=== PATIENT | male | born 1940 | race Caucasian/White ===

== ENCOUNTER 2022-03-19 17:27 | Inpatient (IN) | payer OTHER, SELFPAY ==
[2022-03-19] VITALS (16 sets, daily range): BP systolic 125–153; BP diastolic 59–76; PULSE 63–78; RESP 18–27; TEMP 36.2–36.6; O2SAT 86–92; BMI 19.0
--- NOTE | 2022-03-19 17:38 | ED.GENADULT ---
HPI - General Adult General Time Seen by Provider: 17:38 Date Seen: 03/19/22 Chief complaint: Back Injury/Pain Stated complaint: Back Pain/Chest Pain/Short of Breath Time Seen by Provider: 03/19/22 17:37 Source: patient and family History of Present Illness HPI narrative: Sandip is a 81-year-old male from [place] past medical history includes tobacco abuse 1 pack per day, hypertension presents emerged department with friend with upper back, chest pain and shortness of breath. Patient states that he has had progressively worsening upper back pain, shortness of breath over the last month, he denies any trauma or falls, he was seen last week by his primary for preop for some eye surgery. He did not do any imaging, it has been a constant dull ache but today has become more sharp and severe. Denies any nausea vomiting, denies any neck pain, dizziness or lightheadedness, denies any diaphoresis. Pain is constant upper thoracic region, 2/10. Worse with inspiration. Denies any fevers or chills, no covert exposure. Denies any lower back pain or abdominal pain. He has a followup appointment tomorrow for this. No history of any CAD or stroke He has no other concerns at this time. Related Data Home Medications Medication Instructions Recorded Confirmed amlodipine 5 mg tablet mg 03/19/22 Allergies Allergy/AdvReac Type Severity Reaction Status Date / Time No Known Drug Allergies Allergy Verified 03/19/22 18:33 Review of Systems Status of ROS: Reports: 10 or more systems reviewed and unremarkable except as noted in History and below [facility] Social History Smoking Status: Current every day smoker What tobacco products do you use: cigarettes Do you use any of these nicotine containing products: None Second hand tobacco smoke exposure: No How often do you have a drink containing alcohol: 4 or more times a week How many standard drinks containing alcohol do you have on a typical day: 3 or 4 How often do you have six or more drinks on one occasion: Never AUDIT-C Alcohol total score: 5 Non-prescribed substance use: denies use Exam Narrative: Exam Narrative: NAD: mild distress, laying HEENT: Pupils equal round reactive to light, extraocular muscles intact Neck: No JVD, full range of motion, supple Lungs: Diminished breath sounds throughout Heart: Normal sinus rhythm Abdomen: Soft, bowel sounds present, no tenderness Muscle skeletal: does have some tenderness to palpation the upper thoracic region, no midline tenderness. Neuro: Alert awake and oriented x3 Const: Vital Signs, click to edit/add: Vital Signs - 24 hr 03/19/22 17:37 03/19/22 18:15 03/19/22 17:35 Temperature 97.2 F L Pulse Rate Pulse Rate [Right Pulse Oximeter] 68 Respiratory Rate 18 Blood Pressure Blood Pressure [Le ft Upper Arm] 125/59 L 125/59 L Pulse Oximetry 88 92 Oxygen Delivery Me thod Room Air Nasal Cannula Oxygen Flow Rate 2 03/19/22 18:00 03/19/22 18:36 03/19/22 18:38 Temperature Pulse Rate 66 Pulse Rate [Right Pulse Oximeter] 64 Respiratory Rate 27 H Blood Pressure 137/66 Blood Pressure [Le ft Upper Arm] Pulse Oximetry 86 L 89 Oxygen Delivery Me thod Room Air Nasal Cannula Oxygen Flow Rate 2 03/19/22 19:00 03/19/22 19:02 03/19/22 19:03 Temperature Pulse Rate 68 66 66 Pulse Rate [Right Pulse Oximeter] Respiratory Rate Blood Pressure 138/75 Blood Pressure [Le ft Upper Arm] Pulse Oximetry 91 91 91 Oxygen Delivery Me thod Nasal Cannula Nasal Cannula Nasal Cannula Oxygen Flow Rate 2 2 2 03/19/22 19:32 03/19/22 19:34 03/19/22 20:02 Temperature Pulse Rate 67 69 69 Pulse Rate [Right Pulse Oximeter] Respiratory Rate Blood Pressure 150/72 H 153/76 H Blood Pressure [Le ft Upper Arm] Pulse Oximetry 89 89 89 Oxygen Delivery Me thod Nasal Cannula Nasal Cannula Nasal Cannula Oxygen Flow Rate 2 2 2 Course Course Hospital Course: 6:00 PM: AIDET performed. vitals are stable. Less likely cardiac related, based on his smoking history will obtain, EKG, troponin, BMP and CTA angio chest PE study. Will give him 2 mg IV morphine for his pain, suspect muscular in origin. Reevaluation(s) Reevaluation #1: CBC showed no leukocytosis, metabolic panel within normal limits, troponin I negative, EKG showed a normal sinus rhythm, the p.m. [address] changes, no comparisons. Per ED provider. Time: 19:22 Reevaluation #2: CT imaging showed No pulmonary embolism identified, Large left and moderate right pleural effusion with adjacent compressive atelectasis. Severe emphysematous changes with scattered nodules, scarring and atelectasis in the bases. Diffuse thickening of the distal esophagus. Probable small hiatal hernia.Diffuse osseous sclerosis. Findings are nonspecific and the differential is broad including renal osteodystrophy, lymphoma, leukemia, metastases, among other entities. Patient was given 10 mg IV Decadron and a DuoNeb for his breathing and hypoxia, no improvement with keeping O2 sats greater than 90% on room air. Plan would be to admit for further evaluation. 8:00 PM: Spoke with Dr. Quigley, she accepts care of the patient to a [facility] surgery floor bed, patient and friend were in agreement this plan. Time: 19:23 Vital Signs Vital signs: Initial Vital Signs Blood Pressure 125/59 L 03/19/22 17:35 Blood Pressure Mean 81 03/19/22 17:35 Blood Pressure Position Supine 03/19/22 17:35 Vital Signs Blood Pressure 125/59 L 03/19/22 17:35 Temperature 97.2 F L 03/19/22 17:37 Pulse Rate 69 03/19/22 20:02 Respiratory Rate 27 H 03/19/22 18:00 Blood Pressure 153/76 H 03/19/22 20:02 Pulse Oximetry 89 03/19/22 20:02 Oxygen Delivery Method 03/19/22 20:02 Oxygen Flow Rate 2 03/19/22 20:02 Medical Decision Making Lab Data Labs: Lab Results 03/19/22 03/19/22 03/19/22 Range/Units 18:10 18:10 18:38 WBC 6.80 (4.50-11.00) K/uL RBC 4.09 L (4.30-5.90) m/uL Hgb 13.2 L (13.5-17.5) gm/dL Hct 40.2 (37.0-53.0) % MCV 98 (80-100) fL MCH 32 (26-34) pg MCHC 33 (32-36) gm/dL RDW Coeff of Sukhwinder 14.2 (11.5-15.5) % Plt Count 231 (140-440) K/uL Neut % (Auto) 64.6 (42.0-72.0) % Lymph % (Auto) 16.9 L (20-44) % [place] % (Auto) 10.3 (0.0-11.0) % Eos % (Auto) 7.5 H (0.0-7.0) % Baso % (Auto) 0.4 (0.0-3.0) % Neut # (Auto) 4.39 (1.7-7.0) K/uL Lymph # (Auto) 1.10 (0.90-2.90) K/uL [place] # (Auto) 0.70 (0.00-0.90) K/UL Eos # (Auto) 0.50 (0.00-0.50) K/uL Baso # (Auto) 0.03 (0.00-0.30) K/uL Abs Immat Gran (auto) 0.02 (0.00-0.30) K/uL Sodium 140 (135-149) mmol/L Potassium 4.2 (3.6-5.1) mmol/L Chloride 108 (96-114) mmol/L Carbon Dioxide 23 (20-32) mmol/L BUN 21 (7-30) mg/dL Creatinine 1.2 (0.5-1.5) mg/dL Estimated Creat Clear 40.03 Estimated GFR 62 ml/min Glucose 90 (60-115) mg/dL Calcium 8.5 (8.4-10.6) mg/dL Troponin I < 0.01 L (0.01-0.04) ng/mL POC Troponin I 0.00 L (0.01-0.04) ng/ml Discharge Plan Discharge Clinical Impression: Bilateral pleural effusion, Back pain, thoracic, Osteosclerosis Patient Disposition: Admitted As Inpatient Activity Level: Activity as Tolerated
--- NOTE | 2022-03-19 17:47 | CRLHL7_ITS ---
For Patients: As a result of the Century Cures Act, medical imaging exams and procedure reports are released immediately into your electronic medical record. You may view this report before your referring provider. If you have questions, please contact your health care provider. INDICATION: Shortness of breath, upper back pain.. TECHNIQUE: CT chest PE was acquired with 95 cc Isovue 370 IV contrast. COMPARISON: None. FINDINGS: Heart and vasculature: Contrast opacification of the pulmonary arterial tree is adequate. No sign of pulmonary embolism. Heart size is normal. Thoracic aorta and pulmonary artery are normal in caliber.Moderate calcific atherosclerosis of the visualized aorta and its large branches. Coronary artery calcifications are noted. Lungs and pleura: Severe emphysematous changes are noted bilaterally. There are scattered small nodular opacities, predominantly in the periphery of the bilateral upper lobes. Subpleural ground-glass opacities are also identified, likely scarring. Bibasilar atelectasis. Large left and moderate right pleural effusions with adjacent compressive atelectasis. Lymph nodes/mediastinum: No mediastinal, hilar, or axillary adenopathy. The distal diffuse, circumferential esophageal thickening and likely small side hiatal hernia noted. Chest wall: No masses. Upper abdomen: No acute or significant findings. Likely prior cholecystectomy. The partially visualized probable left-sided moderate hydronephrosis. Bones: Diffuse dense sclerosis of the visualized osseous structures. IMPRESSION: No pulmonary embolism identified. Large left and moderate right pleural effusion with adjacent compressive atelectasis. Severe emphysematous changes with scattered nodules, scarring and atelectasis in the bases. Diffuse thickening of the distal esophagus. Probable small hiatal hernia. Partially visualized left-sided hydronephrosis. Diffuse osseous sclerosis. Findings are nonspecific and the differential is broad including renal osteodystrophy, lymphoma, leukemia, metastases, among other entities. Please note that all CT scans at this facility use dose modulation, iterative reconstruction, and/or weight-based dosing when appropriate to reduce radiation dose to as low as reasonably achievable. Dictated by Sunshine Rao MD @ 03/19/2022 6:57:31 PM (Electronically Signed)
--- NOTE | 2022-03-19 18:15 | ED.NURSE ---
Pt O2 sats at 87% and pt reporting SOB. Placed pt on 2L O2 NC, O2 up to 91-92%. notified.
[2022-03-19 18:24] LABS: Basophils Absolute Auto 0.03 K/uL (0.00-0.30); Basophils Percent Auto 0.4 % (0.0-3.0); Eosinophils Percent Auto 7.5 % (0.0-7.0); Hematocrit 40.2 % (37.0-53.0); Hemoglobin* 13.2 gm/dL (13.5-17.5); Immature Granulocytes Abs Auto 0.02 K/uL (0.00-0.30); Lymphocytes Percent Auto 16.9 % (20-44); Mean Corpuscular HGB Conc 33 gm/dL (32-36); Mean Corpuscular Hemoglobin 32 pg (26-34); Mean Corpuscular Volume 98 fL (80-100); Monocytes Percent Auto 10.3 % (0.0-11.0); Neutrophils Absolute Auto 4.39 K/uL (1.7-7.0); Neutrophils Percent Auto 64.6 % (42.0-72.0); Platelet Count* 231 K/uL (140-440); RDW Coefficient of Variation % 14.2 % (11.5-15.5); Red Blood Count 4.09 m/uL (4.30-5.90)
[2022-03-19 18:25] LABS: Slide Review Reflex No
[2022-03-19 18:41] LABS: Chloride* 108 mmol/L (96-114); Potassium* 4.2 mmol/L (3.6-5.1); Sodium* 140 mmol/L (135-149)
[2022-03-19 18:44] LABS: Blood Urea Nitrogen* 21 mg/dL (7-30); Carbon Dioxide* 23 mmol/L (20-32); Creatinine* 1.2 mg/dL (0.5-1.5); Est. Creatinine Clearance* 40.03; Estimated Glomerular Filt Rate 62 ml/min
[2022-03-19 18:45] LABS: Calcium* 8.5 mg/dL (8.4-10.6); Glucose* 90 mg/dL (60-115)
--- NOTE | 2022-03-19 18:57 | ED.NURSE ---
Pt states pain is not bothering him at all right now. Pt declines ordered morphine at this time.
[2022-03-19 19:12] LABS: Troponin I* < 0.01 ng/mL (0.01-0.04)
--- NOTE | 2022-03-19 19:40 | ED.NURSE ---
Trialed pt off O2 onto RA with MD at bedside. Pt O2 sat dropped to 82% with good waveform. Pt denied SOB. O2 NC at 2L reapplied with no increase in sat. Upped O2 to 4L NC, brought pt up to 92%.
[2022-03-19] MEDS: dexAMETHasone 10 MG/ML inj IVP (19:48)
[2022-03-19] MEDS: IPRAT-ALBUT 0.5-2.5 MG/3 ML NEB 1 NEB IH (19:48)
--- NOTE | 2022-03-19 19:58 | ED.NURSE ---
After neb, O2 up to 96%.
--- NOTE | 2022-03-19 20:06 | ED.NURSE ---
Pt O2 back down to 88-90% on 2L NC. notified.
--- NOTE | 2022-03-19 20:09 | W.PC.EDHO ---
Primary Language: Persian Preferred Language: Orientation Status: [x] Alert & Oriented [] Slight Confusion [] Known Dx Dementia Transfers By: [] Assist of 1 [x] Assist of 2 [] Lift Active Medications Generic Name Dose Route Start Last Admin Trade Name Kimberly PRN Reason Stop Dose Admin Albuterol/Ipratropium 1 neb 03/19/22 19:38 03/19/22 19:48 Iprat-Albut 0.5-2.5 Mg/3 Ml Neb IH 03/19/22 19:39 1 neb ONCE ONE Administration Dexamethasone 10 mg 03/19/22 19:38 03/19/22 19:48 Dexamethasone 10 Mg/Ml Inj IVP 03/19/22 19:39 10 mg ONCE ONE Administration Description of Symptoms ED Triage Present Problem upper back pain and sob. Description IV Insertion/Site Date of IV Line Insertion [ 03/19/22 Left Antecubital] Oxygen Administration Pulse Oximetry 89 Pulse Oximetry 89 Pulse Oximetry 89 Pulse Oximetry 91 Pulse Oximetry 91 Pulse Oximetry 91 Pulse Oximetry 89 Pulse Oximetry 92 Pulse Oximetry 86 Pulse Oximetry 88 Oxygen Delivery Method Nasal Cannula Oxygen Delivery Method Nasal Cannula Oxygen Delivery Method Nasal Cannula Oxygen Delivery Method Nasal Cannula Oxygen Delivery Method Nasal Cannula Oxygen Delivery Method Nasal Cannula Oxygen Delivery Method Nasal Cannula Oxygen Delivery Method Nasal Cannula Oxygen Delivery Method Room Air Oxygen Delivery Method Room Air Oxygen Flow Rate 2 Oxygen Flow Rate 2 Oxygen Flow Rate 2 Oxygen Flow Rate 2 Oxygen Flow Rate 2 Oxygen Flow Rate 2 Oxygen Flow Rate 2 Oxygen Flow Rate 2 Cardiac Monitoring EKG Method 12 Lead
[2022-03-19 20:15] LABS: Albumin* 3.2 g/dL (3.3-5.0)
[2022-03-19 20:19] LABS: Alanine Aminotransferase* 13 U/L (4-50); Alkaline Phosphatase* 868 U/L (40-150); Aspartate Amino Transferase* 48 U/L (12-35); Bilirubin Direct* 0.4 mg/dL (0.0-0.5); Bilirubin Total* 0.4 mg/dL (0.1-1.5); Total Protein* 6.3 g/dL (6.0-8.3)
[2022-03-19 20:26] LABS: HCO3 VBG 25 mmol/L (21-28); PCO2 VBG 40 mmHG (40-50); PO2 VBG 30.5 mmHG (25-47); pH VBG 7.394 (7.32-7.43)
--- NOTE | 2022-03-19 20:39 | P.IMHP_ITS ---
Hospitalist- H&P: HPI History of Present Illness Date Seen: 03/19/22 Chief complaint: Back Pain/Chest Pain/Short of Breath Narrative: ADMISSION HISTORY AND PHYSICAL - HOSPITALIST Chief Complaint: My upper back is killing me HPI: 81-year-old PAST MEDICAL HISTORY: Hypertension Tobacco use disorder History of elevated PSA PAD - moderate noted by KIRTI in the right foot, mild in the left foot Has been COVID vaccinated x3 MEDICATIONS: Norvasc 5 mg daily ALLERGIES: No known drug allergies SURGICAL HISTORY: Open cholecystectomy Repair of incarcerated left inguinal hernia FAMILY HISTORY: Reviewed in EMR HABITS: Daily smoker Daily drinker SOCIAL HISTORY: INVESTIGATIONS: LABS/MICRO/ECG/IMAGING 153/76 Pulse 69 Respiratory rate 27 Temp 97.2? 89% on 2 L per nasal cannula CBC reflects a normal white blood cell count of 6.8, hemoglobin 13.2, platelet count 231 Chem panel reveals normal basic electrolytes, creatinine is 1.2. Bilirubin is normal. AST is 48, ALT is 13 and alk-phos is 868. Troponin undetectable Albumin running low at 3.2 C reactive protein 1.0 Recent PSA was 4.9 done at a recent preop Alk-phos was 934, 9 days ago CTA No pulmonary embolism identified. Large left and moderate right pleural effusion with adjacent compressive atelectasis. Severe emphysematous changes with scattered nodules, scarring and atelectasis in the bases. Diffuse thickening of the distal esophagus. Probable small hiatal hernia. Partially visualized left-sided hydronephrosis. Diffuse osseous sclerosis. Findings are nonspecific and the differential is broad including renal osteodystrophy, lymphoma, leukemia, metastases, among other entities. REVIEW OF SYSTEMS: 12-point ROS completed with patient and negative unless otherwise stated in HPI or below. PHYSICAL EXAM: CODE STATUS: FULL CODE CONSTITUTIONAL: VITAL SIGNS: see record. HEENT: Normocephalic, atraumatic. PERRL, EOMI, conjunctivae pink, no scleral icterus. Ears and nose externally normal. Pharynx normal. NECK: No JVD. No carotid bruit, no thyromegaly, no adenopathy. CHEST: Clear to auscultation bilaterally HEART: S1 and S2 normal. No harsh murmurs. Edema MUSCULOSKELETAL: No gross joint deformity or swelling. NEURO: Cranial nerves intact. Grossly intact. No asymmetric findings. SKIN: No rashes, petechiae, concerning changes PSYCHIATRIC: Euthymic. ADMIT DVT: GI: Time spent: 70 minutes examining patient, conferring with family and patient, care staff, developing care plan [facility] Medical History (Updated 03/19/22 @ 21:19 by Keiko Quigley MD) HTN (hypertension) Tobacco abuse Social History Highest level of school completed/degree received: 7th grade Smoking Status: Current every day smoker What tobacco products do you use: cigarettes Do you use any of these nicotine containing products: None Second hand tobacco smoke exposure: No How often do you have a drink containing alcohol: 4 or more times a week Alcohol type: hard liquor Alcohol type details: patricia How many standard drinks containing alcohol do you have on a typical day: 3 or 4 How often do you have six or more drinks on one occasion: Never AUDIT-C Alcohol total score: 5 Non-prescribed substance use: denies use Caffeine: No Meds Home Medications and Allergies Home Medications Medication Instructions Recorded Confirmed Type amlodipine 5 mg tablet mg 03/19/22 History Allergies Allergy/AdvReac Type Severity Reaction Status Date / Time No Known Drug Allergies Allergy Verified 03/19/22 18:33 Exam Const: Vital Signs, click to edit/add: Vital Signs - 24 hr 03/19/22 17:37 03/19/22 18:15 03/19/22 17:35 Temperature 97.2 F L Pulse Rate Pulse Rate [Right Pulse Oximeter] 68 Respiratory Rate 18 Blood Pressure Blood Pressure [Le ft Upper Arm] 125/59 L 125/59 L Pulse Oximetry 88 92 Oxygen Delivery Me thod Room Air Nasal Cannula Oxygen Flow Rate 2 03/19/22 18:00 03/19/22 18:36 03/19/22 18:38 Temperature Pulse Rate 66 Pulse Rate [Right Pulse Oximeter] 64 Respiratory Rate 27 H Blood Pressure 137/66 Blood Pressure [Le ft Upper Arm] Pulse Oximetry 86 L 89 Oxygen Delivery Me thod Room Air Nasal Cannula Oxygen Flow Rate 2 03/19/22 19:00 03/19/22 19:02 03/19/22 19:03 Temperature Pulse Rate 68 66 66 Pulse Rate [Right Pulse Oximeter] Respiratory Rate Blood Pressure 138/75 Blood Pressure [Le ft Upper Arm] Pulse Oximetry 91 91 91 Oxygen Delivery Me thod Nasal Cannula Nasal Cannula Nasal Cannula Oxygen Flow Rate 2 2 2 03/19/22 19:32 03/19/22 19:34 03/19/22 20:02 Temperature Pulse Rate 67 69 69 Pulse Rate [Right Pulse Oximeter] Respiratory Rate Blood Pressure 150/72 H 153/76 H Blood Pressure [Le ft Upper Arm] Pulse Oximetry 89 89 89 Oxygen Delivery Me thod Nasal Cannula Nasal Cannula Nasal Cannula Oxygen Flow Rate 2 2 2 03/19/22 20:28 Temperature Pulse Rate 77 Pulse Rate [Right Pulse Oximeter] Respiratory Rate Blood Pressure Blood Pressure [Le ft Upper Arm] Pulse Oximetry 90 Oxygen Delivery Me thod Nasal Cannula Oxygen Flow Rate 2 Hospitalist - H&P: Result Labs Labs: Short CBC 03/19/22 Range/Units 18:10 WBC 6.80 (4.50-11.00) K/uL Hgb 13.2 L (13.5-17.5) gm/dL Hct 40.2 (37.0-53.0) % Plt Count 231 (140-440) K/uL BMP 03/19/22 18:10 Sodium 140 Potassium 4.2 Chloride 108 Carbon Dioxide 23 BUN 21 Creatinine 1.2 Glucose 90 Calcium 8.5 Cardiac Enzymes 03/19/22 Range/Units 18:10 Troponin I < 0.01 L (0.01-0.04) ng/mL Liver Function 03/19/22 Range/Units 18:10 Total Bilirubin 0.4 (0.1-1.5) mg/dL Direct Bilirubin 0.4 (0.0-0.5) mg/dL AST 48 H (12-35) U/L ALT 13 (4-50) U/L Alkaline Phosphatase 868 H (40-150) U/L Albumin 3.2 L (3.3-5.0) g/dL Assessment and Plan Assessment and plan (1) Acute respiratory failure with hypoxia: Status: Acute Assessment and Plan: will treat presumptively with abx and one dose of steroids. awaiting pro charlette, blood cultures (2) Bilateral pleural effusion: Status: Acute Assessment and Plan: Hypoxic. I suspect these are likely malignant effusions. Potentially they are transudative; we can get echo. BNP is being added on. smoker. osteosclerosis with elevated alk phos (mets?), hydronephrosis on chest CT - awaiting Abd/Pelvis CT Gen Surg to consult tomorrow for therapeutic/diagnostic thoracentesis. (3) Back pain, thoracic: Status: Acute Assessment and Plan: lidocaine patch, toradol, oxy, gabapentin. following. (4) Osteosclerosis: Status: Acute (5) HTN (hypertension): Status: Acute Assessment and Plan: home norvasc ordered. (6) Tobacco abuse: Status: Acute Assessment and Plan: will offer
[2022-03-19 20:56] LABS: SARS PCR* Negative SARS-CoV-2 (Negative)
--- NOTE | 2022-03-19 20:58 | CRLHL7_ITS ---
For Patients: As a result of the Century Cures Act, medical imaging exams and procedure reports are released immediately into your electronic medical record. You may view this report before your referring provider. If you have questions, please contact your health care provider. Indication: Malignancy hydronephrosis Technique: Contrast CT abdomen pelvis Comparison: CT chest 03/19/2022 Findings: Moderate bilateral effusions. Bibasilar atelectasis. Severe emphysema. Scattered pulmonary nodules. [id number] hiatal stomach decompressed. Cholecystectomy tiny hypodensity adjacent to the falciform ligament Thursday. Spleen unremarkable atherosclerotic calcification of the aorta nonaneurysmal. Adrenal glands pancreas unremarkable. Lack of intra-abdominal fat limits evaluation. There is mild right hydronephrosis. Moderate to severe left hydronephrosis 9 millimeter right bladder base stone the distal ureters are poorly visualized. Urinary bladder significantly distended diffuse trabeculation. Heterogeneous enlarged prostate gland. No large adenopathy is seen. Bowel appears unremarkable no obstruction diverticulosis. 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 Impression: 1. Moderate to severe left hydronephrosis. Mild right hydronephrosis. Distal ureters are poorly seen without definite obstructing stone seen. Right bladder base stone. Calculus within right bladder diverticulum. Diffuse trabeculated urinary bladder likely related to bladder outlet obstruction. Heterogeneous enlarged prostate gland. 2. 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 3. Anasarca. Lack of intra-abdominal fat limits evaluation. Please note that all CT scans at this facility use dose modulation, iterative reconstruction, and/or weight-based dosing when appropriate to reduce radiation dose to as low as reasonably achievable. Dictated by Celia Shafer MD @ 03/19/2022 10:22:57 PM (Electronically Signed)
[2022-03-19 22:39] LABS: NT Pro B Type NatriureticPept* 368 PG/mL (0-450)
[2022-03-19 22:48] LABS: Gamma Glutamyl Transpeptidase* 20 U/L (8-55)
[2022-03-19] MEDS: GABAPENTIN 300 MG CAPSULE PO (22:58)
[2022-03-19] MEDS: ENOXAPARIN 40 MG/0.4 ML INJ SUBCUT (22:58)
[2022-03-19] MEDS: PIPERACILLIN/TAZOBACTAM 3.375 GM in 0.9 % SODIUM CHLORIDE Mini-bag 100 ML IVPB (22:59)
[2022-03-19] MEDS: LIDOCAINE 5% PATCH 1 PATCH TRANSDERMA (23:00)
[2022-03-20] MEDS: LACTATED RINGERS 1000 ML 500 ML IV (00:48)
--- NOTE | 2022-03-20 01:53 | PC.NURSE ---
0130 Report given to Rosita CARDOZO at [facility].
--- NOTE | 2022-03-20 01:57 | PC.NURSE ---
9--[address] Diaz able to place 16F coude tip cath. 550cc of tea colored urine intially. Irrigated with 50 x2. 500cc LR bolus given.
--- NOTE | 2022-03-20 02:01 | PC.NURSE ---
0130 Attempted call daughter to inform of pt's transfer to [facility]. Msg left to call unit. Son Ancelmo called and informed. Daughter did call back and was informed.
--- NOTE | 2022-03-20 02:05 | PC.NURSE ---
Report given to EMS crew. Pt left for transfer at 0150
--- NOTE | 2022-03-27 15:05 | PM.DS1 ---
DS: Providers Provider Time Seen by Provider: 00:01 Date Seen: 03/20/22 Date of admission: 03/19/22 20:05 Primary care physician: Lexus Shah MD Admitting Clinician: Keiko Quigley MD Consults: 03/19/22 21:31 Consult to Occupational Therapy [CONS] Routine Comment: Reason(s) for OT Consult:: Evaluate and Treat Any Restrictions?:: No Restrictions Consult to Physical Therapy [CONS] Routine Comment: Reason(s) for PT Consult:: Evaluate and Treat Any Restrictions?:: No Restrictions Consult to Respiratory Therapy [CONS] Routine Comment: Reason(s) for RT Consult:: Consult Attending Physician on discharge: Keiko Quigley MD Date of Discharge: 03/20/22 (Transferred to [facility] at 0200 on 03/20) DS: Diagnosis Discharge Diagnosis (1) 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 pleural fluid c/w with GI origin adenoca. iliac crest bone biopsy was pending at discharge. d/c with oxygen and conteh catheter. (2) Acute respiratory failure with hypoxia: Status: Acute (3) Tobacco abuse: Status: Acute (4) Bilateral pleural effusion: Status: Acute (5) Back pain, thoracic: Status: Acute DS: Summary Hospital Course Hospital Course: HOSPITALIST DISCHARGE SUMMARY ATTENDING PHYSICIAN: Keiko Quigley MD FINAL DIAGNOSIS: Bilateral pleural effusions, concerning for metastatic disease Skeletal metastasis, origin Urinary obstruction Weight loss HOSPITAL FOLLOWUP ISSUES: Per [facility], excepting transfer BRIEF HOSPITAL COURSE: This is a 81-year-old who was admitted on the evening of 03/19. Very shortly after admission to the floor it became obvious that this patient needed a multi disciplinary approach and team for his care. He is a long-time smoker and came in with back pain, weight loss and weakness. His workup indicated he likely had widespread carcinoma. His bilateral pleural effusions likely needed diagnostic and therapeutic thoracentesis. He had partial urinary obstruction and a catheter was difficult to place. I consulted with Urology who was concerned that this may be a primary prostate cancer. Further discussion with the patient and family we felt transfer for Oncology, Urology was in his best interest. VITAL SIGN, MEDICATION, LAB/MICRO, IMAGING SUMMARY (full details available in account tabs or by records request) REVIEW OF SYSTEMS Unchanged from admission PHYSICAL EXAM: CONSTITUTIONAL: Older than stated age, cachectic. VITAL SIGNS: see record. HEENT: Normocephalic, atraumatic. PERRL, EOMI, conjunctivae pink, no scleral icterus. Ears and nose externally normal. Pharynx normal. NECK: No JVD. No carotid bruit, no thyromegaly, no adenopathy. CHEST: Clear to auscultation bilaterally. HEART: S1 and S2 normal. Edema ABDOMEN: Scaphoid abdomen MUSCULOSKELETAL: No gross joint deformity or swelling. NEURO: Cranial nerves intact. Grossly intact. No asymmetric findings. SKIN: No rashes, petechiae, concerning changes PSYCHIATRIC: Mood euthymic. DISPOSITION: Transferred to [facility] Time spent on discharge 37 minutes. Status at Discharge Functional status at discharge: bed bound Overall status at discharge: patient is not back to baseline Time Spent with Patient Time attestation: Total time spent providing and/or coordinating discharge services: Time spent: Greater than 30 minutes Discharge Plan Discharge Disposition: Xfer Other Date of Admission: 03/19/22 20:05 Attending Provider on Discharge: Keiko Quigley Primary Care Provider: Lexus Shah Discharge Medications: Continued amlodipine 5 mg tablet Label Comments: TAKE 1 TABLET BY MOUTH ONCE DAILY Discharge Orders: Discharge Order (Routine); Ordered 03/20/22 Ordered By: Keiko Quigley Activity Restrictions/Additional Instructions: To follow up with scheduled tomorrow with primary care provider. To continue with Tylenol 1000 mg every 6 hours as needed for pain. Activity Level: Activity as Tolerated Follow Up Appointments: Lexus Shah MD [Primary Care Provider] - Forms: [facility] Info Instructions Hospital Course: HOSPITALIST DISCHARGE SUMMARY ATTENDING PHYSICIAN: Keiko Quigley MD FINAL DIAGNOSIS: Bilateral pleural effusions, concerning for metastatic disease Skeletal metastasis, origin Urinary obstruction Weight loss HOSPITAL FOLLOWUP ISSUES: Per [facility], excepting transfer BRIEF HOSPITAL COURSE: This is a 81-year-old who was admitted on the evening of 03/19. Very shortly after admission to the floor it became obvious that this patient needed a multi disciplinary approach and team for his care. He is a long-time smoker and came in with back pain, weight loss and weakness. His workup indicated he likely had widespread carcinoma. His bilateral pleural effusions likely needed diagnostic and therapeutic thoracentesis. He had partial urinary obstruction and a catheter was difficult to place. I consulted with Urology who was concerned that this may be a primary prostate cancer. Further discussion with the patient and family we felt transfer for Oncology, Urology was in his best interest. VITAL SIGN, MEDICATION, LAB/MICRO, IMAGING SUMMARY (full details available in account tabs or by records request) REVIEW OF SYSTEMS Unchanged from admission PHYSICAL EXAM: CONSTITUTIONAL: Older than stated age, cachectic. VITAL SIGNS: see record. HEENT: Normocephalic, atraumatic. PERRL, EOMI, conjunctivae pink, no scleral icterus. Ears and nose externally normal. Pharynx normal. NECK: No JVD. No carotid bruit, no thyromegaly, no adenopathy. CHEST: Clear to auscultation bilaterally. HEART: S1 and S2 normal. Edema ABDOMEN: Scaphoid abdomen MUSCULOSKELETAL: No gross joint deformity or swelling. NEURO: Cranial nerves intact. Grossly intact. No asymmetric findings. SKIN: No rashes, petechiae, concerning changes PSYCHIATRIC: Mood euthymic. DISPOSITION: Transferred to [facility] Time spent on discharge 37 minutes.
== END 2022-03-20 02:00 | disposition short-term general hospital (02) | DRG 374 ==
LOC: ED 19:30 → MEDSURG 20:08
PROVIDERS: Admitting Provider Family Medicine; Emergency Provider Student in an Organized Health Care Education/Training Program; PCP Family Medicine; Visit Provider Family Medicine
DX: C26.9 Malignant neoplasm of ill-defined sites within the digestive system (principal); J96.01 Acute respiratory failure with hypoxia; Q78.2 Osteopetrosis; N13.1 Hydronephrosis with ureteral stricture, not elsewhere classified; J91.0 Malignant pleural effusion; C79.51 Secondary malignant neoplasm of bone; C80.1 Malignant (primary) neoplasm, unspecified; I10 Essential (primary) hypertension; F17.210 Nicotine dependence, cigarettes, uncomplicated; M54.6 Pain in thoracic spine; I73.9 Peripheral vascular disease, unspecified
CPT/HCPCS: 36415; 71260; 74177; 80048; 80053; 80076; 81001; 82330; 82728; 82803; 82977; 83540; 83550; 83605; 83735; 83880; 84145; 84443; 84484; 85025; 85027; 86140; 87040; 87086; 87635; 93005; 94640; 94761; 99283; A9270; J1100; J1650; J2543; J7120; Q9967

== ENCOUNTER 2022-03-20 01:43 | Outpatient (CLI) | payer OTHER, SELFPAY ==
--- NOTE | 2022-04-07 14:41 | ONC.NURNOTE ---
Patient was referred to our office at discharge the beginning of the month. Patient was referred by discharging provider, with no child care counselor. Patient has adenocarcimona of unknown primary, and bone biopsy per [facility] was inconclusive. Nursing talked with Dr. Chávez with [facility] on 04/02/2022 and he notes that patient was discussed at tumor board and a Upper GI was recommended. Rehabilitation Consultant asked that they please order this prior to Dr. aragon seeing patient on 04/22/2022 so that this is available to provider. Dr. Aragon noted that patient will need a MRI of the head prior to seeing him as well. Nursing called patient to let them know this and daughter notes that patient would not be able to have this without sedation or in an open sided MRI. [facility] does not have an open sided machine and we do not have records on patient, so copy writer reached out to primary care: Kathy Winters and she notes that she has only seen patient twice in the last two years. She notes that Dr. Kirkpatrick saw patient for post hospitalization and that he may be willing to order prior to us seeing him. He is out of the office today, so nursing left message with patient's daughter, Gissel to see what patient needs for sedation or if would be able to have the open sided MRI. Left message for Dr. Kirkpatrick to please order this.
== END 2022-03-20 01:44 | disposition home or self-care (01) ==
PROVIDERS: PCP Family Medicine; Visit Provider Student in an Organized Health Care Education/Training Program
DX: R09.02 Hypoxemia (principal); J90 Pleural effusion, not elsewhere classified; M54.9 Dorsalgia, unspecified
CPT/HCPCS: A0425; A0428

== ENCOUNTER 2022-04-28 09:19 | Emergency (ER) | payer OTHER, SELFPAY ==
[2022-04-28 09:25] VITALS: BP 159/90; PULSE 65; RESP 22; TEMP 36.3; BMI 19.4
--- NOTE | 2022-04-28 09:49 | CRLHL7_ITS ---
For Patients: As a result of the Cures Act, medical imaging exams and procedure reports are released immediately into your electronic medical record. You may view this report before your referring provider. If you have questions, please contact your health care provider. INDICATION: Shortness of breath TECHNIQUE: Chest 2 views COMPARISON: CT 03/19/2022 FINDINGS: Widespread metastatic disease to the osseous structures again noted. Bilateral pleural effusions, left greater than right with adjacent compressive atelectasis. Underlying COPD/emphysema. Likely similar peripheral densities bilaterally. No pneumothorax. No compression fracture. IMPRESSION: Persistent bilateral effusions and adjacent atelectasis superimposed upon COPD/emphysema and widespread metastatic disease. Dictated by Jesús Holley MD @ 04/28/2022 10:37:39 AM (Electronically Signed)
--- OUTSIDE RECORDS SUMMARY | 2022-04-28 09:58 | XMS_ITS | Encounter Summary ---
:1940 Author Care Team Providers Name Role Phone Niesha THURSTON Primary Care Provider [phone] Reason for Visit Hospital Follow up Assessment and Plan 1. Retention of urine 2. Lower urinary tract symptoms due to benign prostatic hypertrophy ? tamsulosin 0.4 mg capsule Discussion Note Assessment: - Acute urinary retention - BPH with nocturia, alpha kendall naive - Metastatic adenocarcinoma, etiology un clear still Plan: - Discussed the etiology and pathophysio logy of acute urinary retention - Patient currently with Spangler catheter, discussed options including fill/pull trial void here in the office today, scheduling formal trial void in the near future, discontinuing Spangler catheter with obs ervation. Discussed the risks including recurrent urinary retention requiring visit to the emergency department and repeat catheter placement. - After discussion patient to start tams ulosin today and undergo fill/pull trial. - Patient failed fill/pull. Catheter rep laced - Will schedule for RN trial void in 1 w ak[place]ok - Discussed the differential diagnosis, pathophysiology and nature of benign prostate enlargement causing lower urinary tract symptoms - Counseled patient on conservative vonda gement options including appropriate fluid management, avoidance of diuretics including caffeine and alcohol - Prescription sent for Tamsulosin [place] chloride (Flomax?) 0.4 mg P.O. daily: -I have discussed in great detail with t he patient the treatment of prostate enlargement/lower urinary tract symptoms using tamsulosin. I have explained my rationale for using tamsulosin as well as pote ntial risks of asthenia (2%), dizziness (5%), rhinitis (3%) and abnormal ejaculation (11%). I encouraged patient to report any prior or current history of alpha-1 antagonist use to their ophthalmic surg chapin before undergoing any eye surgery du e to the risk of intraoperative floppy iris syndrome. The patient expressed an understanding of the treatment, possible reactions, and possible prognosis. - Extensively reviewed patient's hospita l records. Still unclear about the etiology of patient's cancer. He has a hospital follow up with PCP coming up soon to review. - Follow up in 1 month for symptom reass essment Patient educational handouts: No information available. Plan of Care Reminders Provider Appointments Established 10 05/13/2022 3:10PM Antoni Meade, DO Lab None recorded. ? ? Referral None recorded. ? ? Procedures None recorded. ? ? Surgeries None recorded. ? ? Imaging None recorded. ? ? Medications Name Start Date ? ? amlodipine 5 mg tablet ? TAKE 1 TABLET BY MOUTH ONCE DAILY brimonidine 0.2 % eye drops ? INSTILL 1 DROP IN SURGICAL EYE TWICE A DAY FOR 7 DAYS finasteride 5 mg tablet ? TAKE 1 TABLET (5 MG) BY MOUTH EVERY MORNING. buysupsc-swubodrlm-bppggroc 3.5 mg/mL-10,000 unit/mL-0 .1% eye drops ? INSTILL ONE DROP IN BOTH EYES THREE TIMES A DAY FOR 1 MONTH polymyxin B sulfate 10,000 unit-trimethoprim 1 mg/mL e ye drops ? INSTILL 1 DROP INTO RIGHT EYE FOUR TIME S A DAY DIRECTED START AFTER SURGERY. USE FOR 7 DAYS, THEN STOP. prednisolone acetate 1 % eye drops,suspension ? INSTILL 1 DROP IN LEFT EYES 4 TIMES KAYLI LY FOR 1 WEEK, 3 TIMES DAILY FOR 1 WEEK, TWICE DAILY FOR 1 WEEK. AND ONCE DAILY A FINAL WEEK tamsulosin 0.4 mg capsule ? TAKE ONE CAPSULE BY MOUTH EVERY DAY Medications Administered None recorded. Vitals Height Weight BMI 5 ft 7 in 125 lbs 19.6 kg/m2 Results Lab Results None recorded. Allergies Code Code System Name Reaction Severity Onset NKDA ? ? ? Problems Name Status Onset Date Source ? Retention of Urine Active 04/01/2022 ? Lower Urinary Tract Symptoms Due to Benign Prostatic Active 04/01/2022 ? Hypertrophy Procedures None recorded. Vaccine List Vaccine Type COVID-19, mRNA, LNP-S, PF, 3 mcg/0.2 mL dose, tank-sucrose ([employer]) 09/12/2021 Social History Tobacco Smoking Status Former Smoker What is your level of alcohol consumption? Moderate Has tobacco cessation counseling been provided? N Are you currently employed? N Could you be ? N Preferred Language [place]er What was the date of your most recent tobacco screening? Ethnicity Not / Do you or have you ever used any other forms of tobacco or N nicotine? What is your level of caffeine consumption? Moderate Do you use any illicit or recreational drugs? N Recreational Drug Use N What is your relationship status? Family History Relation Problem Onset Age of Age Notes Father No current problems or (No Information) N/A ( No Notes) disability Mother No current problems or (No Information) N/A ( No Notes) disability Son Family history of renal stone (No Information) N/A (No Notes) Functional Status Unknown. Past Encounters 04/01/2022 Retention of Urine; Lower Urinary Tract Symptoms Due to Benign Prostatic Hypertrophy Antoni Meade, DO: [address], [address], [place] [address], Ph. [phone] History of Present Illness Note: <div>Patient presents in initial consultation for urinary retention</di v><div>
</div><div>Patient was seen as inpatient 03/20/[address] Carmona& #39;Richard. Patient presented to [facility] with back pain, chest pain, shortness of breath. CT scan that time revealed bilateral hydronephrosis down to the level of the bladder which wasdistended and had an enlarged prostate. Additionally there were numerous sclerotic lesions of the bone. Spangler catheter was placed. At that time patient denied any baseline difficulty with urination. Did have a history of elevated PSA and had a biopsy in 2008 which was negative. PSA at that time approximately 7. PSA completed 03/10/2022 4.94, 4.08 03/20/2022. Patient additionally with a pleural effusion for cytology was concerning for metastatic adenocarcinoma. Unknown primary etiology. Patient additionally with a nuclear medicine bone scan 03/21/2022 showing diffuse lesions.</div><div>
</div><div>04/01/22: Reports still having the catheter. Has some discomfort with the catheter. Not on flomax. No history of retention. Patient has yet to hear the results of the tests to determine what type of cancer he might have. Does have an upcoming appointment for that. Reports at [facility] having occasional weak stream and nocturia. </div> Review of Systems ? Comprehensive General Adult ROS Reported By: Patient Constitutional: Constitutional: no fever, no chills Eyes: Eyes: no vision change Cardiovascular: Cardiovascular: no chest flo n, no palpitations Respiratory: Respiratory: no wheezing, no cough Gastrointestinal: Gastrointestinal: no nausea, no constipation Musculoskeletal: Musculoskeletal: no neck flo n, no back pain Neurologic: Neurologic: no tremor, no di zziness Genitourinary: Genitourinary: no incontinen ce, difficulty urinating Psychiatric: Psych: no hallucinations, (n ormal) sleep disturbances: mismatch of sleep / wake schedule with l ifestyle needs Notes: <p> </p> Physical Exam ? General Adult Exam Male Reported By: Patient Constitutional: General Appearance: healthy- appearing, well-nourished. Level of Distress: NAD. Ambulation: a mbulating normally Psychiatric: Mental Status: active and al ert, normal affect Head: Head: normocephalic, atrauma tic Eyes: Lids and Conjunctivae: non-i njected Lungs: Respiratory effort: no dyspn ea Cardiovascular: Pulses including femoral / p edal: normal throughout Abdomen: Inspection and Palpation: so ft, non-distended, no tenderness, no guarding, no rebound tendern ess, no CVA tenderness Neurologic: Cranial Nerves: grossly inta ct Skin: Inspection and palpation: no rash, no lesions
--- OUTSIDE RECORDS SUMMARY | 2022-04-28 09:58 | XMS_ITS ---
:1940 Author Care Team Providers Name Role Phone CLAIRE HAROON THURSTON Primary Care Provider [phone] Allergies Code Code System Name Reaction Severity Status Onset NKDA ? Medications Name Status Start Date Stop Date ? ? amlodipine 5 mg tablet Active ? Not avail able TAKE 1 TABLET BY MOUTH ONCE DAILY brimonidine 0.2 % eye drops Active ? Not available INSTILL 1 DROP IN SURGICAL EYE TWICE A DAY FOR 7 DAYS finasteride 5 mg tablet Active ? Not avai lable TAKE 1 TABLET (5 MG) BY MOUTH EVERY MORNING. yyvidtfb-pvkzapxgv-gempcbxb 3.5 mg/mL-10,000 unit/mL-0.1% eye dr ops Active ? Not available INSTILL ONE DROP IN BOTH EYES THREE TIMES A DAY FOR 1 MONTH polymyxin B sulfate 10,000 unit-trimethoprim 1 mg/mL eye drops A ctive ? Not available INSTILL 1 DROP INTO RIGHT EYE FOUR TIME S A DAY DIRECTED START AFTER SURGERY. USE FOR 7 DAYS, THEN STOP. prednisolone acetate 1 % eye drops,suspension Active ? Not available INSTILL 1 DROP IN LEFT EYES 4 TIMES KAYLI LY FOR 1 WEEK, 3 TIMES DAILY FOR 1 WEEK, TWICE DAILY FOR 1 WEEK. AND ONCE DAILY A FINAL WEEK tamsulosin 0.4 mg capsule Active ? Not av ailable TAKE ONE CAPSULE BY MOUTH EVERY DAY Problems Name Status Onset Date Source ? Retention of Urine Active 04/01/2022 ? Lower Urinary Tract Symptoms Due to Benign Prostatic Active 04/01/2022 ? Hypertrophy Procedures None recorded. Results Lab Results Date Name Specimen Result Interpretation Description Value Range Status Address ? 04/08/2022 Bladder Scan ? Volume (in mL) 180 ? ? [facility]: [address], [email or web address] 03/20/2022 PSA, Serum or ? No observation ? ? ? Plasma recorded. Past Encounters 04/08/2022 Retention of Urine; Lower Urinary Tract Symptoms Due to Benign Prostatic Hypertrophy Antoni Meade, DO: [address], [address], [place] [address], Ph. 04/01/2022 Retention of Urine; Lower Urinary Tract Symptoms Due to Benign Prostatic Hypertrophy Antoni Albrechtfranki, DO: [address], [address], [place] [address], Ph. Social History Tobacco Smoking Status Former Smoker Vaccine List Vaccine Type COVID-19, mRNA, LNP-S, PF, 3 mcg/0.2 mL dose, tank-sucrose ([employer]) 09/12/2021 Plan of Care Reminders Provider Appointments None recorded. ? ? Lab None recorded. ? ? Referral None recorded. ? ? Procedures None recorded. ? ? Surgeries None recorded. ? ? Imaging None recorded. ? ? Vitals 04/08/2022 02:50PM ESTABLISHED 10 Height Weight BMI 5 ft 7 in 125 lbs 19.6 kg/m2 04/01/2022 10:00AM NEW PATIENT 10 Height Weight BMI 5 ft 7 in 125 lbs 19.6 kg/m2
--- OUTSIDE RECORDS SUMMARY | 2022-04-28 09:58 | XMS_ITS | Encounter Summary ---
:1940 Author Organization [facility] Address [address], [place] [address] Care Team Providers Name Role Phone Lexus Shah MD Primary Care Provider Reason for Visit Auth/Cert Specialty Diagnoses / Procedures Referred By Contact Refer red To Contact Diagnoses Cataract of right eye, unspecified cataract type Procedures EXTRACAPSULAR CATARACT EXTRACTION WITH INTRAOCULAR LENS IMPLANT OF RIGHT EYE Referral ID Status Reason Start Date Expiration Date Visits Requ ested Visits Authorized [id number] 1 1 Encounter Details Date Type Department Care Team Description 11/22/2020 [facility] [place] EXTRACTION WITH [address] [facility] INTRAOCULAR LENS IMPLANT [address] OF RIGHT EYE [phone] (Wo rk) Social History Tobacco Use Types Packs/Day Years Used Date Smoking Tobacco: Every Day Smokeless Tobacco: Never Alcohol Use Standard Drinks/Week Comments Yes 0 (1 standard drink = 0.6 oz pure alcoho l) daily-1-2 Alcohol Habits Answer Date Recorded How often do you have a drink containing alcohol? Not asked How many drinks containing alcohol do you have on a typical Not asked day when you are drinking? How often do you have six or more drinks on one occasion? No t asked Comment: daily-1-2 11/19/2020 Sex Assigned at Date Recorded Not on file documented as of this encounter Last Filed Vital Signs Vital Sign Reading Time Taken Comments Blood Pressure 154/60 11/22/2020 10:15 AM CDT Pulse 65 11/22/2020 10:15 AM CDT Temperature 36.2 ??C (97.2 ??F) 11/22/2020 10:15 AM CDT Respiratory Rate 16 11/22/2020 10:15 AM CDT Oxygen Saturation 97% 11/22/2020 10:15 AM CDT Inhaled Oxygen Concentration - - Weight 61.2 kg (135 lb) 11/19/2020 12:13 PM CDT Height 170.2 cm (5' 7) 11/19/2020 12:13 PM CDT Body Mass Index 21.14 11/19/2020 12:13 PM CDT documented in this encounter Discharge Instructions Discharge InstructionsRomi Ordonez RN - 11/22/2020 10:26 AM CDT Images from the original note were not included. [address] ???[place] [id number]??? POST OP INSTRUCTIONS FOR CATARACT SURGERY Dr. SCHERER Follow up appointment at Dr Scherer???s office on:_11/22 at 1:40pm The care of your eye at home helps insure the best possible outcome. Here are some guidelines for the healing eye in the next few weeks. MEDICATIONS: Start your eye drops today when you get home. Follow the instructions you were given by Dr. Scherer. Wait 5 minutes in between each drop. An over the counter pain reliever is usually sufficient to relieve pain. RESTRICTIONS: 1. Do not rub eye for 1 week. 2. Do not lift over 50 pounds for 1 week. 3. Wear eye shield at bed time for 1 week. 4. No make-up for 1 week. 5. No swimming for 2 weeks. 6. No alcohol or driving for 24 hours because of the sedation you received today. ACTIVITIES: You can do all of your normal activities. You can bend, stoop, lift and do your hair. WHAT TO EXPECT YOUR EYE HEALS: ??? Your vision will clear as the eye heals; scratchiness or a foreign body sensation is common. ??? Your glasses will be wrong for your eye(s), but wearing them while it heals will not hurt your eye. If your vision is better without your glasses, then go without your eyeglasses. Sometimes drug store reading glasses, +2.50 help for reading. Your glasses may be changed 2-4 weeks following surgery. ??? Use dark glasses outside if the sunlight bothers your eyes. ??? It is common to see small spots floating in your vision and flashes of light immediately following surgery. ??? If your vision becomes more blurred rather than clear, or if you experience pain or redness, or excessive drainage, call Dr Scherer???s office at [phone] or his cell [phone]. 08/11/17 documented in this encounter Medications at Time of Discharge Medication Sig Dispensed Refills Start Date End Date amLODIPine (NORVASC) 5 MG Take 5 mg by mouth 0 tablet daily. tobramycin-dexamethasone Place 1 Drop into 0 (TOBRADEX) 0.3-0.1 % eye right eye. drop suspension documented as of this encounter Procedure Notes Eusebio Scherer MD - 11/22/2020 10:13 AM CDT [facility] Operative Note Surgery Date: 11/22/2020 Surgeon(s) and Role: * Eusebio Scherer MD - Primary Pre-op Diagnosis: * Cataract of right eye, unspecified cataract type [H26.9] Post-op Diagnosis: * Cataract of right eye, unspecified cataract type [H26.9] Procedure(s) (LRB): EXTRACAPSULAR CATARACT EXTRACTION WITH INTRAOCULAR LENS IMPLANT OF RIGHT EYE (Right) EBL: 0 Specimens: * No specimens in log * Findings: 0 Technique: 0 Complications: 0 [facility] Operative Note DATE OF SERVICE: 11/22/2020 DATE OF SURGERY: 11/22/2020 OPERATIVE Procedure(s): Right - EXTRACAPSULAR CATARACT EXTRACTION WITH INTRAOCULAR LENS IMPLANT OF RIGHT EYE - Wound Class: 1 CLEAN. PREOPERATIVE DIAGNOSIS: Cataract Of Right Eye, Unspecified Cataract Type POSTOPERATIVE DIAGNOSIS: Pseudophakia of right eye, pupil abnormality COMPLICATIONS: SURGEON: Eusebio Scherer MD INDICATIONS FOR SURGERY: The patient has experienced a painless, progressive loss of vision in his right eye for the past several years interfering with his reading, driving, and day-to-day activities.At this time, he is interested in trying to improve his visual and functional status and elected to proceed with surgical repair. I have explained the risks, benefits, alternative treatments to him including possible loss of the eye. He understands, accepts and elects to proceed with surgical repair. OPERATIVE PROCEDURE: The right eye was dilated with a combination of 1 percent Mydriacyl, 2.5 percent phenylephrine with topical Ocufen and Vigamox applied to the corneal surface. He was brought to [facility] operating room where under IV sedation the right eye was prepped and draped in the usual sterile fashion for intraocular surgery. A lid speculum was placed and a paracentesis created at 12 o'clock. The chamber was filled with local anesthetic and viscoelastic and entered temporally with a keratome. A Malyugin ring was placed due to a 2.5 mm pupil. A continuous tear capsulotomy was performed. Thenucleus was hydrodissected and emulsified in a chop technique in the capsular bag. Residual cortex was cleaned and the capsule was clear. At this point, a model ZCB00 22.5 diopter posterior chamber lens implant was injected into the capsular bag and was well centered. The Malyugin ring was removed andresidual viscoelastic removed. The incision hydrated and noted to be leak free. Topical Alphagan, pil ocarpine, and Vigamox were applied to the corneal surface and the patient returned to recovery in good condition, having tolerated the procedure well. Condition on discharge was satisfactory. Eusebio Scherer MD 11/22/2020 REFERRING PROVIDER: * No referring provider recorded for this case * CC: Esvin Scherer MD documented in this encounter OR Notes H&P - Eusebio Scherer MD - 11/22/2020 6:59 AM CDT Patient: Sandip Montano Proposed Procedure(s): Right - EXTRACAPSULAR CATARACT EXTRACTION WITH INTRAOCULAR LENS IMPLANT OF RIGHT EYE - Possible: No I have reviewed a current H&P (done within 30 days), reassessed the patient prior to surgery andthere are no interval changes in their health status. I have reviewed the procedure and the risks with the patient. The patient agrees to proceed to surgery. Eusebio Scherer MD documented in this encounter Plan of Treatment Not on filedocumented as of this encounter Procedures Procedure Name Priority Date/Time Associated Diagnosis Comme nts EXCISION CATARACT WITH 11/22/2020 9:44 AM CDT Cataract of right eye, LENS IMPLANT unspecified cataract type documented in this encounter Visit Diagnoses Diagnosis Cataract of right eye, unspecified catar act type documented in this encounter Administered Medications Inactive Administered Medications - up to 3 most recent administrations Medication Order MAR Action Action Date Dose Rate Site balance salt intraocular (BSS) Given 11/22/2020 9:[address] op ophthalmic solution ONCE PRN, Starting on Anay 11/22/20 at 0954, Until Anay 11/22/20 at 1315, Intra-op brimonidine (ALPHAGAN) 0.2 % ophthalmic Given 11/22/2020 10:10 A M CDT 1 Drop solution ONCE PRN, Starting on Anay 11/22/20 at 1006, Until Anay 11/22/20 at 1315, Intra-op bupivacaine PF (MARCAINE) 0.75 % injection SOLN Given 11/22/2020 9:30 AM CDT 1 mL 1 mL 1 mL, Right Eye, Q3MIN PRN, Other, 3 doses, Starting on Anay 11/22/20 at 1000, Until Anay 11/22/20 at 0930, For 3 doses, INSTILL 1 DROP INTO OPERATIVE EYE EVERY 3 MINUTES X 3 DOSES Given 11/22/2020 9:25 AM CDT 1 mL Given 11/22/2020 9:20 AM CDT 1 mL ketorolac (ACULAR) 0.5 % ophthalmic solution Given 12/2020 9:30 AM CDT 1 Drop 1 Drop 1 Drop, Right Eye, Q3MIN PRN, Other, q3 minutes, Starting on Anay 11/22/20 at 0852, Until Anay 11/22/20 at 1315, Instill one drop every 3 minutes x 3 to surgical eye., Pre-op Given 11/22/2020 9:25 AM CDT 1 Drop Given 11/22/2020 9:20 AM CDT 1 Drop lidocaine PF (XYLOCAINE) 1 % injection 0 .1-1 mL 0.1-1 mL, Injection, ONCE PRN, Local Anesthetic, For I V Start, Starting on Anay 11/22/20 at 0852, For 1 dose, Use intradermally as local anesthetic prior to IV start, Pre-op lidocaine PF (XYLOCAINE) 1 % injection Given 11/22/2020 10:00 AM CDT 2 mL ONCE PRN, Starting on Anay 11/22/20 at 1000, Intra-op moxifloxacin (VIGAMOX) 0.5 % ophthalmic Given 11/22/2020 9:30 AM CDT 1 Drop solution 1 Drop 1 Drop, Right Eye, Q3MIN PRN, Other, q3 minutes, Starting on Anay 11/22/20 at 0852, Until Anay 11/22/20 at 0930, For 3 doses, Instill one drop to surgical eye every 3 minutes x 3 beginning 60 minutes before surgery., Pre-op Given 11/22/2020 9:25 AM CDT 1 Drop Given 11/22/2020 9:20 AM CDT 1 Drop moxifloxacin (VIGAMOX) 0.5 % ophthalmic Given 11/22/2020 10:10 A M CDT 1 Drop solution ONCE PRN, Starting on Anay 11/22/20 at 1006, Until Anay 11/22/20 at 1315, Intra-op phenylephrine (AK-DILATE) 10 % ophthalmic Given 11/22/2020 9:54 AM CDT 1 Drop solution ONCE PRN, Starting on Anay 11/22/20 at 0954, Until Anay 11/22/20 at 1315, Intra-op phenylephrine (AK-DILATE) 2.5 % ophthalmic Given 11/22/2020 9:30 AM CDT 1 Drop solution 1 Drop 1 Drop, Right Eye, Q3MIN PRN, Parameters, q3 minutes, Starting on Anay 11/22/20 at 0852, Until Anay 11/22/20 at 0930, For 3 doses, Instill one drop every 3 minutes x 3 to surgical eye., Pre-op Given 11/22/2020 9:25 AM CDT 1 Drop Given 11/22/2020 9:20 AM CDT 1 Drop sodium chloride 0.9% injection 2 mL 2 mL, Intravenous, PRN PER PARAMETERS, Line Patency, S tarting on Anay 11/22/20 at 0852, Until Anay 11/22/20 at 1315, As needed for IV start , Pre-op tetracaine (PONTOCAINE) 0.5 % ophthalmic Given 11/22/2020 9:20 A M CDT 1 Drop solution 1 Drop 1 Drop, Right Eye, ONCE (NON-SCHEDULED), Starting on Anay 11/22/20 at 0852, For 1 dose, Instill one drop to surgical eye prior to all other drops, Pre-op tetracaine (PONTOCAINE) 0.5 % ophthalmic Given 11/22/2020 9:54 A M CDT 1 Drop solution ONCE PRN, Starting on Anay 11/22/20 at 0954, Intra-op tropicamide (MYDRIACYL) 1 % ophthalmic Given 11/22/2020 9:30 AM CDT 1 Drop solution 1 Drop 1 Drop, Right Eye, Q3MIN PRN, Other, q3 minutes, Starting on Anay 11/22/20 at 0852, Until Anay 11/22/20 at 0930, For 3 doses, Instill one drop every 3 minutes x 3 to surgical eye., Pre-op Given 11/22/2020 9:25 AM CDT 1 Drop Given 11/22/2020 9:20 AM CDT 1 Drop documented in this encounter Active and Recently Administered Medications Times are shown in CDT. Scheduled Medication Order 11/20/2020 11/21/2020 11/22/2020 tetracaine (PONTOCAINE) 0.5 % ophthalmic solution 1 Drop (COMPLE NALINI) 0920 (Given - Provider: Dominique Obrien RN) 1 Drop, Right Eye, ONCE (NON-SCHEDULED), Starting on Anay 11/22/20 at 0852, For 1 dose, Instill one drop to surgical eye prior to all other drops, Pre-op PRN Medication Order 11/20/2020 11/21/2020 11/22/2020 balance salt intraocular (BSS) ophthalmic solution 0954 (Given - Provider: Mallory Morillo RN) ONCE PRN, Starting on Anay 11/22/20 at 0954, Intra-op brimonidine (ALPHAGAN) 0.2 % ophthalmic solution 1010 (Given - Provider: Mallory Morillo RN) ONCE PRN, Starting on Anay 11/22/20 at 1006, Intra-op bupivacaine PF (MARCAINE) 0.75 % injection SOLN 1 mL (COMPLETED) 0920 (Given - Provider: Dominique Obrien, JULIANE)0925 (Given - Provider: Dominique Obrien RN)0930 (Given - Provider: Dominique Obrien RN) 1 mL, Right Eye, Q3MIN PRN, Other, 3 dos es, Starting on Anay 11/22/20 at 1000, For 3 doses, INSTILL 1 DROP INTO OPERATIVE EYE EVERY 3 MINUTES X 3 DOSES ketorolac (ACULAR) 0.5 % ophthalmic solution 1 Drop 0920 (Given - Provider: Dominique Obrien RN)0925 (Given - Provider: Dominique Obrien, JULIANE)0930 (Given - Provider: Dominique Obrien RN) 1 Drop, Right Eye, Q3MIN PRN, Other, q3 minutes, Starting on Anay 5 at 0852, Instill one drop every 3 minutes x 3 to surgical eye., Pre-op lidocaine PF (XYLOCAINE) 1 % injection 0.1-1 mL 0.1-1 mL, Injection, ONCE PRN, Local Ane sthetic, For IV Start, Starting on Anay 11/22/20 at 0852, For 1 dose, Use intradermally as local anesthetic prior to IV start, Pre-op lidocaine PF (XYLOCAINE) 1 % injection 1000 (Given - Provider: Eusebio Scherer MD) ONCE PRN, Starting on Anay 11/22/20 at 1000, Intra-op moxifloxacin (VIGAMOX) 0.5 % ophthalmic solution 1 Drop (COMPLET ED) 0920 (Given - Provider: Dominique Obrien RN)0925 (Given - Provider: Dominique Obrien RN)0930 (Given - Provider: Dominique Obrien RN) 1 Drop, Right Eye, Q3MIN PRN, Other, q3 minutes, Starting on Anya 5 at 0852, For 3 doses, Instill one drop to surgical eye every 3 minutes x 3 beginning 60 minutes before surgery., Pre-op moxifloxacin (VIGAMOX) 0.5 % ophthalmic solution 1010 (Given - Provider: Mallory Morillo RN) ONCE PRN, Starting on Anay 11/22/20 at 1006, Intra-op phenylephrine (AK-DILATE) 10 % ophthalmic solution 0954 (Given - Provider: Mallory Morillo, JULIANE) ONCE PRN, Starting on Anay 11/22/20 at 0954, Intra-op phenylephrine (AK-DILATE) 2.5 % ophthalmic solution 1 Drop (COMP LETED) 0920 (Given - Provider: Dominique Obrien RN)0925 (Given - Provider: Dominique Obrien, JULIANE)0930 (Given - Provider: Dominique Obrien RN) 1 Drop, Right Eye, Q3MIN PRN, Parameters , q3 minutes, Starting on Anay 11/22/20 at 0852, For 3 doses, Instill one drop every 3 minutes x 3 to surgical eye., Pre-op sodium chloride 0.9% injection 2 mL 2 mL, Intravenous, PRN PER PARAMETERS, L ine Patency, Starting on Anay 11/22/20 at 0852, As needed for IV start, Pre-op tetracaine (PONTOCAINE) 0.5 % ophthalmic solution 0954 (Given - Provider: Mallory Morillo RN) ONCE PRN, Starting on Anay 11/22/20 at 0954, Intra-op tropicamide (MYDRIACYL) 1 % ophthalmic solution 1 Drop (COMPLETE D) 0920 (Given - Provider: Dominique Obrien RN)0925 (Given - Provider: Dominique Obrien RN)0930 (Given - Provider: Dominique Obrien RN) 1 Drop, Right Eye, Q3MIN PRN, Other, q3 minutes, Starting on Anay 11/22/20 at 0852, For 3 doses, Instill one drop every 3 minutes x 3 to surgical eye., Pre-op documented in this encounter Care Teams Flight Operations Inspector Relationship Specialty Start Date End Date Lexus Shah MD PCP - General Family Practice 11/22/20 [address] [place] [address] documented as of this encounter
--- OUTSIDE RECORDS SUMMARY | 2022-04-28 09:58 | XMS_ITS | Encounter Summary ---
:1940 Author Organization [facility] Address [address], [place] [address] Care Team Providers Name Role Phone Lexus Shah MD Primary Care Provider Reason for Visit Auth/Cert Specialty Diagnoses / Procedures Referred By Contact Refer red To Contact Diagnoses Cataract of left eye, unspecified cataract type Procedures EXTRACAPSULAR CATARACT EXTRACTION WITH INTRAOCULAR LENS IMPLANT OF LEFT EYE Referral ID Status Reason Start Date Expiration Date Visits Requ ested Visits Authorized [id number] 1 1 Encounter Details Date Type Department Care Team Description 12/06/2020 [facility] MD Darian EXTRACTION WITH [address] [facility] INTRAOCULAR LENS IMPLANT [address] OF LEFT EYE [phone] (Wo rk) Social History Tobacco Use Types [...] Sign Reading Time Taken Comments Blood Pressure 183/71 12/06/2020 10:05 AM CDT Pulse 61 12/06/2020 10:05 AM CDT Temperature 36.8 ??C (98.3 ??F) 12/06/2020 10:05 AM CDT Respiratory Rate 16 12/06/2020 10:05 AM CDT Oxygen Saturation 97% 12/06/2020 10:05 AM CDT Inhaled Oxygen Concentration - - Weight - - Height - - Body Mass Index - - documented in this encounter Discharge Instructions Discharge InstructionsShar Hendricks RN - 12/06/2020 11:58 AM CDT Images from the original note were not included. [address] ???[place] [address]??? POST OP INSTRUCTIONS FOR CATARACT SURGERY Dr. SCHERER Follow up appointment at Dr Scherer???s office on: The care of your eye at home [...] excessive drainage, call Dr Scherer???s office at [phone] or his cell [phone]. 08/11/17 Discharge Instr - Shar Dennis RN - 12/06/2020 11:58 AM CDT Call your clinic or seek medical help if you have any sudden change in your condition or if you haveany of the following: {IP D/C DANGER SIGNS:[id number]} documented in this encounter Medications at Time of Discharge Medication Sig Dispensed Refills Start Date End Date amLODIPine (NORVASC) 5 MG Take 5 mg by mouth 0 tablet daily. tobramycin-dexamethasone Place 1 Drop into 0 (TOBRADEX) 0.3-0.1 % eye right eye. drop suspension documented as of this encounter Procedure Notes Eusebio Scherer MD - 12/06/2020 12:36 PM CDT [facility] Operative Note Surgery Date: 12/20/2020 Surgeon(s) and Role: * Eusebio Scherer MD - Primary Pre-op Diagnosis: * Cataract of left eye, unspecified cataract type [H26.9] Post-op Diagnosis: * Cataract of left eye, unspecified cataract type [H26.9] Procedure(s) (LRB): EXTRACAPSULAR CATARACT EXTRACTION WITH INTRAOCULAR LENS IMPLANT OF LEFT EYE (Left) EBL: 0 Specimens: * No specimens in log * Findings: 0 Technique: 0 Complications: 0 [facility] Operative Note DATE OF SERVICE: 12/06/2020 DATE OF SURGERY: 12/06/2020 OPERATIVE Procedure(s): Left - EXTRACAPSULAR CATARACT EXTRACTION WITH INTRAOCULAR LENS IMPLANT OF LEFT EYE - Wound Class: 1 CLEAN. PREOPERATIVE DIAGNOSIS: Cataract Of Left Eye, Unspecified Cataract Type POSTOPERATIVE DIAGNOSIS: Pseudophakia of left eye COMPLICATIONS: SURGEON: Eusebio Scherer MD INDICATIONS FOR SURGERY: The patient has experienced a painless, progressive loss of vision in his left eye for the past several years interfering with his reading, driving, and day-to-day activities. At this time, he is interested in trying to improve his visual and functional status and elected to proceed with surgical repair. I have explained the risks, benefits, alternative treatments to him including possible loss of the eye. He understands, accepts and elects to proceed with surgical repair. OPERATIVE PROCEDURE: The left eye was dilated with a combination of 1% Mydriacyl, 2.5% phenylephrinewith topical Ocufen and Vigamox applied to the corneal surface. He was brought to the main operatingroom where under IV sedation the left eye was prepped and draped in the usual sterile fashion for intraocular surgery. A lid speculum was placed and a paracentesis created at 6 o'clock. The chamber wasfilled with viscoelastic and entered temporally with a keratome. A continuous tear capsulotomy was performed. The nucleus was hydrodissected and emulsified in a chop technique in the capsular bag. Residual cortex was cleaned and the capsule was clear. At this point, a model ZCB00 diopter posterior chamber lens implant was injected into the capsular bag and was well centered. Residual viscoelastic wascleaned from the eye, the incision hydrated and noted to be leak free. Topical Alphagan, pilocarpine, and Vigamox were applied to the corneal surface and the patient returned to recovery in good condition, having tolerated the procedure well. Condition on discharge was satisfactory. Eusebio Scherer MD 12/20/2020 REFERRING PROVIDER: * No referring provider recorded for this case * CC: Eusebio Scherer MD documented in this encounter OR Notes H&P - Eusebio Scherer MD - 12/06/2020 6:53 AM CDT Patient: Sandip Montano Proposed Procedure(s): Left - EXTRACAPSULAR CATARACT EXTRACTION WITH INTRAOCULAR LENS IMPLANT OF LEFT EYE - Possible: No I have reviewed [...] Associated Diagnosis Comme nts EXCISION CATARACT WITH 12/06/2020 11:23 AM Cataract of left eye, LENS IMPLANT CDT unspecified cataract type documented in this encounter Visit Diagnoses Diagnosis Cataract of left eye, unspecified catara ct type documented in this encounter Administered Medications Inactive Administered Medications - up to 3 most recent administrations Medication Order MAR Action Action Date Dose Rate Site balance salt intraocular (BSS) Given 12/06/2020 11:32 AM CDT 5 m L ophthalmic solution ONCE PRN, Starting on Anay 12/06/20 at 1132, Until Anay 12/06/20 at 1436, Intra-op brimonidine (ALPHAGAN) 0.2 % ophthalmic Given 12/06/2020 11:45 A M CDT 1 Drop solution ONCE PRN, Starting on Anay 12/06/20 at 1145, Until Anay 12/06/20 at 1436, Intra-op bupivacaine PF (MARCAINE) 0.75 % injection Given 12/06/2020 10:4 6 AM CDT 1 mL SOLN 1 mL 1 mL, Left Eye, Q3MIN PRN, Other, q3 minutes, Starting on Anay 12/06/20 at 1002, Until Anay 12/06/20 at 1046, For 3 doses, Instill one drop every 3 minutes x 3 to left eye., Pre-op Given 12/06/2020 10:44 AM CDT 1 mL Given 12/06/2020 10:41 AM CDT 1 mL ketorolac (ACULAR) 0.5 % ophthalmic solution Given 10:46 AM CDT 1 Drop 1 Drop 1 Drop, Left Eye, Q3MIN PRN, Other, q3 minutes, Starting on Anay 12/06/20 at 1002, Until Anay 12/06/20 at 1436, Instill one drop every 3 minutes x 3 to surgical eye., Pre-op Given 12/06/2020 10:44 AM CDT 1 Drop Given 12/06/2020 10:41 AM CDT 1 Drop lidocaine PF (XYLOCAINE) 1 % injection 0 .1-1 mL 0.1-1 mL, Injection, ONCE PRN, Local Anesthetic, For I V Start, Starting on Anay 12/06/20 at 1002, For 1 dose, Use intradermally as loca l anesthetic prior to IV start, Pre-op lidocaine PF (XYLOCAINE) 1 % injection Given 12/06/2020 11:36 AM CDT 1 mL ONCE PRN, Starting on Anay 12/06/20 at 1136, Intra-op moxifloxacin (VIGAMOX) 0.5 % ophthalmic Given 12/06/2020 10:47 A M CDT 1 Drop solution 1 Drop 1 Drop, Left Eye, Q3MIN PRN, Other, q3 minutes, Starting on Anay 12/06/20 at 1002, Until Anay 12/06/20 at 1047, For 3 doses, Instill one drop to surgical eye every 3 minutes x 3 beginning 60 minutes before surgery., Pre-op Given 12/06/2020 10:44 AM CDT 1 Drop Given 12/06/2020 10:41 AM CDT 1 Drop moxifloxacin (VIGAMOX) 0.5 % ophthalmic Given 12/06/2020 11:45 A M CDT 1 Drop solution ONCE PRN, Starting on Anay 12/06/20 at 1145, Until Anay 12/06/20 at 1436, Intra-op phenylephrine (AK-DILATE) 10 % ophthalmic Given 12/06/2020 11:32 AM CDT 1 Drop solution ONCE PRN, Starting on Anay 12/06/20 at 1132, Until Anay 12/06/20 at 1436, Intra-op phenylephrine (AK-DILATE) 2.5 % ophthalmic Given 12/06/2020 10:46 AM CDT 1 Drop solution 1 Drop 1 Drop, Left Eye, Q3MIN PRN, Parameters, Starting on Anay 12/06/20 at 1002, Until Anay 21 at 1046, For 3 doses, Instill one drop every 3 minutes x 3 to surgical eye., Pre-op Given 12/06/2020 10:44 AM CDT 1 Drop Given 12/06/2020 10:41 AM CDT 1 Drop sodium chloride 0.9% injection 2 mL 2 mL, Intravenous, PRN PER PARAMETERS, Line Patency, S tarting on Anay 12/06/20 at 1002, Until Anay 12/06/20 at 1436, As needed for IV star t, Pre-op tetracaine (PONTOCAINE) 0.5 % ophthalmic Given 12/06/2020 10:40 AM CDT 1 Drop solution 1 Drop 1 Drop, Left Eye, ONCE (NON-SCHEDULED), Starting on Anay 12/06/20 at 1002, For 1 dose, Instill one drop to surgical eye prior to all other drops, Pre-op tetracaine (PONTOCAINE) 0.5 % ophthalmic Given 12/06/2020 11:32 AM CDT 1 Drop solution ONCE PRN, Starting on Anay 12/06/20 at 1132, Intra-op tropicamide (MYDRIACYL) 1 % ophthalmic Given 12/06/2020 10:46 AM CDT 1 Drop solution 1 Drop 1 Drop, Left Eye, Q3MIN PRN, Other, q3 minutes, Starting on Anay 12/06/20 at 1002, Until Anay 12/06/20 at 1046, For 3 doses, Instill one drop every 3 minutes x 3 to surgical eye., Pre-op Given 12/06/2020 10:44 AM CDT 1 Drop Given 12/06/2020 10:40 AM CDT 1 Drop documented in this encounter Active and Recently Administered Medications Times are shown in CDT. Scheduled Medication Order 12/04/2020 12/05/2020 12/06/2020 tetracaine (PONTOCAINE) 0.5 % ophthalmic solution 1 Drop (COMPLE NALINI) 1040 (Given - Provider: Shar Hendricks RN) 1 Drop, Left Eye, ONCE (NON-SCHEDULED), Starting on Anay 12/06/20 at 1002, For 1 dose, Instill one drop to surgical eye prior to all other drops, Pre-op PRN Medication Order 12/04/2020 12/05/2020 12/06/2020 balance salt intraocular (BSS) ophthalmic solution 1132 (Given - Provider: Janette Ogden, JULIANE - Comment: with povidone iodine added and used as eye wash) ONCE PRN, Starting on Anay 12/06/20 at 1132, Intra-op brimonidine (ALPHAGAN) 0.2 % ophthalmic solution 1145 (Given - Provider: aJnette Ogden, JULIANE) ONCE PRN, Starting on Anay 12/06/20 at 1145, Intra-op bupivacaine PF (MARCAINE) 0.75 % injection SOLN 1 mL (COMPLETED) 1041 (Given - Provider: Shar Hendricks RN)1044 (Given - Provider: Shar Hendricks RN)1046 (Given - Provider: Shar Hendricks RN) 1 mL, Left Eye, Q3MIN PRN, Other, q3 min utes, Starting on Anay 12/06/20 at 1002, For 3 doses, Instill one drop every 3 minutes x 3 to left eye., Pre-op ketorolac (ACULAR) 0.5 % ophthalmic solution 1 Drop 1041 (Given - Provider: Shar Hendricks RN)1044 (Given - Provider: Shar Hendricks RN)1046 (Given - Provider: Shar Hendricks RN) 1 Drop, Left Eye, Q3MIN PRN, Other, q3 m inutes, Starting on Anay 12/06/20 at 1002, Instill one drop every 3 minutes x 3 to surgical eye., Pre-op lidocaine PF (XYLOCAINE) 1 % injection 0.1-1 mL 0.1-1 mL, Injection, ONCE PRN, Local Ane sthetic, For IV Start, Starting on Anay 12/06/20 at 1002, For 1 dose, Use intradermally as local anesthetic prior to IV start, Pre-op lidocaine PF (XYLOCAINE) 1 % injection 1136 (Given - Provider: Eusebio Scherer MD) ONCE PRN, Starting on Anay 12/06/20 at 1136, Intra-op moxifloxacin (VIGAMOX) 0.5 % ophthalmic solution 1 Drop (COMPLET ED) 1041 (Given - Provider: Shar Hendricks RN)1044 (Given - Provider: Shar Hendricks RN)1047 (Given - Provider: Shar Hendricks RN) 1 Drop, Left Eye, Q3MIN PRN, Other, q3 m inutes, Starting on Naay 12/06/20 at 1002, For 3 doses, Instill one drop to surgical eye every 3 minutes x 3 beginning 60 minutes before surgery., Pre-op moxifloxacin (VIGAMOX) 0.5 % ophthalmic solution 1145 (Given - Provider: Janette Ogden, RN) ONCE PRN, Starting on Anay 5/20/21 at 1145, Intra-op phenylephrine (AK-DILATE) 10 % ophthalmic solution 1132 (Given - Provider: Janette Ogden, RN) ONCE PRN, Starting on Anay 12/06/20 at 1132, Intra-op phenylephrine (AK-DILATE) 2.5 % ophthalmic solution 1 Drop (COMP LETED) 1041 (Given - Provider: Shar Hendricks RN)1044 (Given - Provider: Shar Hendricks RN)1046 (Given - Provider: Shar Hendricks RN) 1 Drop, Left Eye, Q3MIN PRN, Parameters, Starting on Anay 12/06/20 at 1002, For 3 doses, Instill one drop every 3 minutes x 3 to surgical eye., Pre-op sodium chloride 0.9% injection 2 mL 2 mL, Intravenous, PRN PER PARAMETERS, L ine Patency, Starting on Anay 12/06/20 at 1002, As needed for IV start, Pre-op tetracaine (PONTOCAINE) 0.5 % ophthalmic solution 1132 (Given - Provider: Janette Ogden, JULIANE) ONCE PRN, Starting on Anay 12/06/20 at 1132, Intra-op tropicamide (MYDRIACYL) 1 % ophthalmic solution 1 Drop (COMPLETE D) 1040 (Given - Provider: Shar Hendricks RN)1044 (Given - Provider: Shar Hendricks RN)1046 (Given - Provider: Shar Hendricks RN) 1 Drop, Left Eye, Q3MIN PRN, Other, q3 m inutes, Starting on Anay 12/06/20 at 1002, For 3 doses, Instill one drop every 3 minutes x 3 to surgical eye., Pre-op documented in this encounter Care Teams Slope Hoist Operator Relationship Specialty Start Date End Date Lexus Shah MD PCP - General Family Practice 11/22/20 [address] [place] [address] documented as of this encounter
--- OUTSIDE RECORDS SUMMARY | 2022-04-28 09:58 | XMS_ITS | Encounter Summary ---
:1940 Author Organization [facility] Address [address], [place] [address] Care Team Providers Name Role Phone Lexus Shah MD Primary Care Provider Reason for Visit Auth/Cert Specialty Diagnoses / Procedures Referred By Contact Refer red To Contact Diagnoses Cataract of left eye, unspecified cataract type Procedures EXTRACAPSULAR CATARACT EXTRACTION WITH INTRAOCULAR LENS IMPLANT OF LEFT EYE Referral ID Status Reason Start Date Expiration Date Visits Requ ested Visits Authorized [id number] 1 1 Encounter Details Date Type Department Care Team Description 12/06/2020 [facility] [address] [place] [phone] (Wo rk) Social History Tobacco Use Types [...] Sign Reading Time Taken Comments Blood Pressure 191/68 12/06/2020 12:00 PM CDT Pulse 58 12/06/2020 12:00 PM CDT Temperature 36.8 ??C (98.2 ??F) 12/06/2020 11:51 AM CDT Respiratory Rate 16 12/06/2020 12:00 PM CDT Oxygen Saturation 94% 12/06/2020 12:00 PM CDT Inhaled Oxygen Concentration - - Weight - - Height - - Body Mass Index - - documented in this encounter Discharge Instructions Discharge Shar Figueroa RN - 12/06/2020 11:58 AM CDT Images from the original note were not included. [address] ???[place] [id number]??? POST OP INSTRUCTIONS FOR CATARACT SURGERY Dr. [...] excessive drainage, call Dr Scherer???s office at [phone] or his cell [phone]. 08/11/17 Discharge Instr - Shar Dennis RN - 12/06/2020 11:58 AM CDT Call your clinic or seek medical help if you have any sudden change in your condition or if you haveany of the following: {IP D/C DANGER SIGNS:[id number]} documented in this encounter Medications at Time of Discharge Medication Sig Dispensed Refills Start Date End Date amLODIPine (NORVASC) 5 MG Take 5 mg by mouth 0 tablet daily. tobramycin-dexamethasone Place 1 Drop into 0 (TOBRADEX) 0.3-0.1 % eye right eye. drop suspension documented as of this encounter Procedure Notes Eusebio Scherer MD - 12/06/2020 12:36 PM CDT [facility] Operative Note Surgery Date: 12/20/2020 Surgeon(s) [...] * Findings: 0 Technique: 0 Complications: 0 [facility] Operative Note DATE OF SERVICE: 12/06/2020 [...] type documented in this encounter Visit Diagnoses Not on filedocumented in this encounter Administered Medications Inactive Administered [...] 1 mL ONCE PRN, Starting on Anay 21 at 1136, Intra-op moxifloxacin (VIGAMOX) 0.5 % ophthalmic Given 12/06/2020 10:47 A M CDT 1 Drop solution 1 Drop 1 Drop, Left Eye, Q3MIN PRN, Other, q3 minutes, Starting on Anay 12/06/20 at 1002, Until Anay 5 at 1047, For 3 doses, Instill one drop to surgical eye every 3 minutes x 3 beginning 60 minutes before surgery., Pre-op Given 12/06/2020 10:44 AM CDT 1 Drop Given 12/06/2020 10:41 AM CDT 1 Drop moxifloxacin (VIGAMOX) 0.5 % ophthalmic Given 12/06/2020 11:45 A M CDT 1 Drop solution ONCE PRN, Starting on Anay 12/06/20 at 1145, Until Anay 521 at 1436, Intra-op phenylephrine (AK-DILATE) 10 % ophthalmic Given 12/06/2020 11:32 AM CDT 1 Drop solution ONCE PRN, Starting on Anay 12/06/20 at 1132, Until Anay 521 at 1436, Intra-op phenylephrine (AK-DILATE) 2.5 % ophthalmic Given 12/06/2020 10:46 AM CDT 1 Drop solution 1 Drop 1 Drop, Left Eye, Q3MIN PRN, Parameters, Starting on Anay 12/06/20 at 1002, Until Anay 521 at 1046, For 3 doses, Instill one drop every 3 minutes x 3 to surgical eye., Pre-op Given 12/06/2020 10:44 AM CDT 1 Drop Given 12/06/2020 10:41 AM CDT 1 Drop sodium chloride 0.9% injection 2 mL 2 mL, Intravenous, PRN PER PARAMETERS, Line Patency, S tarting on Anay 12/06/20 at 1002, Until Anay 21 at 1436, As needed for IV star [...] ophthalmic solution 1132 (Given - Provider: Janette Ogden RN - Comment: with povidone iodine added and used as eye wash) ONCE PRN, Starting on Anay 12/06/20 at 1132, Intra-op brimonidine (ALPHAGAN) 0.2 % ophthalmic solution 1145 (Given - Provider: Janette Ogden, JULIANE) ONCE PRN, Starting on Anay 5/20/21 at 1145, Intra-op bupivacaine PF (MARCAINE) 0.75 [...] ophthalmic solution 1145 (Given - Provider: Janette Ogden RN) ONCE PRN, Starting on Anay 12/06/20 at 1145, Intra-op phenylephrine (AK-DILATE) 10 % [...] ophthalmic solution 1132 (Given - Provider: Janette Ogden RN) ONCE PRN, Starting on Anay 12/06/20 [...] Pre-op documented in this encounter Care Teams Partner Alliance Manager Relationship Specialty Start Date End Date Lexus Shah MD PCP - General Family Practice 11/22/20 [address] [place] [address] documented as of this encounter
--- OUTSIDE RECORDS SUMMARY | 2022-04-28 09:58 | XMS_ITS | Encounter Summary ---
:1940 Author Organization [facility] Address [address] [address] Care Team Providers Name Role Phone Unavailable Primary Care Provider Unavailable Encounter Details Date Type Department Care Team Description 11/16/2020 Notes/Orders [facility] Sima Quigley, Preop general Surgery Center RN physical exam [address] (Primary Dx) [place] [address] [place] [address] [phone] Social History Tobacco Use Types Packs/Day Years Used Date Smoking Tobacco: Never Assessed Sex Assigned at Date Recorded Not on file documented as of this encounter Plan of Treatment Not on filedocumented as of this encounter Visit Diagnoses Diagnosis Preop general physical exam - Primary Other specified pre-operative examinatio n documented in this encounter
--- OUTSIDE RECORDS SUMMARY | 2022-04-28 09:58 | XMS_ITS | Encounter Summary ---
:1940 Author Organization [employer] Address [address], [place] [address] Care Team Providers Name Role Phone Lexus Shah MD Primary Care Provider Reason for Visit Auth/Cert Specialty Diagnoses / Procedures Referred By Contact Refer red To Contact Diagnoses Cataract of right eye, unspecified cataract type Procedures EXTRACAPSULAR CATARACT EXTRACTION WITH INTRAOCULAR LENS IMPLANT OF RIGHT EYE Referral ID Status Reason Start Date Expiration Date Visits Requ ested Visits Authorized [id number] 1 1 Encounter Details Date Type Department Care Team Description 11/22/2020 Anesthesia Event [facility] Surgery Jeni Champagne, Center EQUIPMENT ASSOCIATE, DIVING INSTRUCTOR [address] [phone] (Wo rk) Anesthesia Record Procedure Summary Procedure Name Responsible Anesthesia Start Anesthesia Stop Anesthesiologist Time Time EXTRACAPSULAR CATARACT Maliha Champagne, 11/22/20 0949 01/07 1014 EXTRACTION WITH EQUIPMENT ASSOCIATE, DIVING INSTRUCTOR INTRAOCULAR LENS IMPLANT OF RIGHT EYE (Right: Eye) Events Date Time Event Comment 11/22/2020 0940 0949 An Start 0949 An Start Data 0950 An Cannula 1012 an stop data 1014 Care Handoff Note I discussed wi th the receiving nurse and we: 1) Identified the p atient, hernandez family member(s) or patient surrogat e 2) Identified the responsible practitioner 3) Reviewed the pertinent medical history 4) Discu ssed the surgical/procedure course 5) Reviewed intr a-op anesthesia management and issues during an esthesia 6) Set expectations for the post-procedu re period 7) Allowed opportunity for questions an d acknowledgement of understanding of report Electr onically signed by Maliha Champagne APRN, CASTRO 1014 An Stop Care transferred . Name Total midazolam 2 mg/2 mL injection (aka VERSED) 1 mg fentaNYL injection (SUBLIMAZE) 2 mL 1 mL Agents Name O2 Blood No blood administrations on file. Lines, Drains, and Airways Type Details Placement Removal Peripheral IV Placement Date: 11/22/20 0939 by 11/22/20 1055 b y 11/22/20; Placement Dominique Obrien Lisa M, RN Time: 938; B, RN Pre-existing: No; Inserted by?: Anesthesiologist; Size (Gauge): 22 G; Orientation: Distal, Left; Site Prep: Chlorhexidine; Local Anesthetic: None; Insertion attempts: 2; Blood draw with insertion?: no; Patient Tolerance: Tolerated well; Removal Date: 11/22/20; Removal Time: 1054; Removal Reason: Patient discharged; Catheter Tip: Intact Incision/Surgical Site 11/22/20; 1000; #1; 11/22/20 1000 by 11/18 1115 by Mely, No; Eye; Right; Mallory Morillo, Discontinue 12/06/20; 1115 RN documented in this encounter Social History Tobacco Use Types Packs/Day Years [...] on file documented as of this encounter OR Notes Anesthesia PAT Note - Maliha Champagne APRN, CRNA - 11/21/2020 1:22 PM CDT PMHx -HTN -smoker -daily etoh covid pending Maliha Champagne APRN, CRNA 11/21/2020, 1:23 PM documented in this encounter Miscellaneous Notes Anesthesia Postprocedure Evaluation - Maliha Champagne APRN, CRNA - 11/22/2020 11:05 AM CDT [facility] Anesthesia Post-op Note Patient: Sandip Montano Post-Op Diagnosis: Cataract of right eye, unspecified cataract type Procedure Performed: Procedure(s): Right - EXTRACAPSULAR CATARACT EXTRACTION WITH INTRAOCULAR LENS IMPLANT OF RIGHT EYE - Wound Class: 1 CLEAN Anesthesia Type: MAC Post-op vital signs: Vitals Value Taken Time BP 150/63 11/22/20 1030 Temp 11/22/20 1105 Pulse 59 11/22/20 1030 Resp 16 11/22/20 1030 SpO2 96 % 11/22/20 1030 Pain Score: Presence Of Pain: denies Post-op assessment: No anesthesia complication. Patient location: Phase 2 Airway Status: Patent Cardiovascular function: Satisfactory Hydration status: Satisfactory PONV: None Level of Consciousness: Awake Fully Participates Postop Assessment: Patient tolerated procedure well. Electronically signed by: Maliha Champagne APRN, CRNA 11/22/2020 11:05 AM Anesthesia Preprocedure Evaluation - Manju Soto APRN, CRNA - 11/22/2020 9:35 AM CDT [facility] Anesthesia Pre-op Evaluation Procedure: Procedure(s): Right - EXTRACAPSULAR CATARACT EXTRACTION WITH INTRAOCULAR LENS IMPLANT OF RIGHT EYE - Wound Class: 1 CLEAN HPI: 79 y.o. old male with Cataract of right eye, unspecified cataract type NPO Status: Last Fluid Intake Time: 2099 Last Fluid Intake Date: 11/21/20 Last Food Intake Date: 11/21/20 Last Food Intake Time: 2099 No Known Allergies Past Medical History: Diagnosis Date ??? Hypertension (HRC) There is no problem list on file for this patient. Past Surgical History: Procedure Laterality Date ??? APPENDECTOMY ??? CHOLECYSTECTOMY Outpatient Medications as of 11/22/2020 Medication Sig ??? amLODIPine (NORVASC) 5 MG tablet Take 5 mg by mouth daily. ??? tobramycin-dexamethasone (TOBRADEX) 0.3-0.1 % eye drop suspension Place 1 Drop into right eye. Facility-Administered Medications as of 11/22/2020 Medication Dose Route Frequency ??? bupivacaine PF (MARCAINE) 0.75 % injection SOLN 1 mL 1 mL Right Eye Q3MIN PRN ??? ketorolac (ACULAR) 0.5 % ophthalmic solution 1 Drop 1 Drop Right Eye Q3MIN PRN ??? lidocaine PF (XYLOCAINE) 1 % injection 0.1-1 mL 0.1-1 mL Injection ONCE PRN ??? moxifloxacin (VIGAMOX) 0.5 % ophthalmic solution 1 Drop 1 Drop Right Eye Q3MIN PRN ??? phenylephrine (AK-DILATE) 2.5 % ophthalmic solution 1 Drop 1 Drop Right Eye Q3MIN PRN ??? sodium chloride 0.9% injection 2 mL 2 mL Intravenous PRN per Parameters ??? tetracaine (PONTOCAINE) 0.5 % ophthalmic solution 1 Drop 1 Drop Right Eye Once (Non-Scheduled) ??? tropicamide (MYDRIACYL) 1 % ophthalmic solution 1 Drop 1 Drop Right Eye Q3MIN PRN Labs: No results found for: SODIUM, K, CHLORIDE, CO2, BUN, CREATININE, GLUCOSE No results found for: WBC, HGB, HCT, PLTS No results found for: INR Blood Bank: No results found for: ABO, ABSCR EKG: No results found for this or any previous visit. Physical Exam: BP 139/86 Pulse 69 Temp 98.3 ??F (36.8 ??C) (Temporal Artery) Resp 16 Ht 5' 7 (1.702 m) Wt 61.2 kg (135 lb) SpO2 98% BMI 21.14 kg/m?? Assessment/Plan: Review of Systems Patient does not have GERD. Patient is a current smoker. The patient reports alcohol use. Patient denies any recent URI. History of PONV: No. History of motion sickness: No. Patient denies any personal or family history of anesthesia complications (PONV). Exam Mental Status: Alert and oriented. Mallampati score: I (One). Mouth opening: Normal Thyromental Distance: > 3 finger breadths and Normal Neck Extension: Full Neck Circumference > 40 cm?: No Current airway assessment:Normal Dentition: Dentures. Full upper and lower dentures Cardiac Exam: Regular rate and rhythm. Respiratory Exam: Breath sounds clear to auscultation Assessment ASA Status: 2 . Plan Anesthesia type: MAC Induction: Intravenous Maintenance: PONV Risk Score Peds:0 PONV Risk Score Adult: 0 Anesthetic plan, risks, benefits and alternatives discussed with: Patient or End Packer agree tothe anesthesia treatment plan and Patient. The patient and/or their desk representative were notified about the potential risks of damage to the lips, teeth, dental devices, mouth and airway. H&P Reviewed and Patient examined, no change observed IV access Antibiotics per surgery Electronically signed by: Manju Soto APRN, CRNA 11/22/2020 9:39 AM documented in this encounter Plan of Treatment Not on filedocumented as of this encounter Visit Diagnoses Not on filedocumented in this encounter Administered Medications Inactive Administered Medications - up to 3 most recent administrations Medication Order MAR Action Action Date Dose Rate Site fentaNYL (SUBLIMAZE) injection Given 11/22/2020 9:51 AM CDT 1 mL Intravenous, Starting on Anay 11/22/20 at 0951, Until Anay 11/22/20 at 1016 midazolam (VERSED) injection Given 11/22/2020 9:51 AM CDT 1 mg Intravenous, Starting on Anay 11/22/20 at 0951, Until Anay 11/22/20 at 1016 documented in this encounter Care Teams Bundler Relationship Specialty Start Date End Date Lexus Shah MD PCP - General Family Practice 11/22/20 [address] [place] [address] documented as of this encounter
--- OUTSIDE RECORDS SUMMARY | 2022-04-28 09:58 | XMS_ITS | Encounter Summary ---
:1940 Author Organization [facility] Address [address] [address] Care Team Providers Name Role Phone Lexus Shah MD Primary Care Provider Reason for Visit Auth/Cert Specialty Diagnoses / Procedures Referred By Contact Refer red To Contact Diagnoses Cataract of left eye, unspecified cataract type Procedures EXTRACAPSULAR CATARACT EXTRACTION WITH INTRAOCULAR LENS IMPLANT OF LEFT EYE Referral ID Status Reason Start Date Expiration Date Visits Requ ested Visits Authorized [id number] 1 1 Encounter Details Date Type Department Care Team Description 12/06/2020 Anesthesia Event [facility] Surgery Maliha Felix APRN, PROFESSIONAL SKATER [address] [place] [address] [id number] [place] Talya Danielle APRN, PROFESSIONAL SKATER [address] [place], [place] [id number] [address] [place], [place] [id number] Anesthesia Record Procedure Summary Procedure Name Responsible Anesthesia Start Anesthesia Stop Anesthesiologist Time Time EXTRACAPSULAR CATARACT Maliha Champagne, 12/06/20 1128 05 1150 EXTRACTION WITH HIM CLERK, PROFESSIONAL SKATER INTRAOCULAR LENS IMPLANT OF LEFT EYE (Left: Eye) Events Date Time Event Comment 12/06/2020 1052 1128 An Start 1128 An Start Data 1130 An Cannula 1146 an stop data 1150 Care Handoff Note I discussed wi th [...] Electr onically signed by Maliha Champagne APRN, PROFESSIONAL SKATER 1150 An Stop Care transferred . Name Total midazolam 2 mg/2 mL injection (aka VERSED) 1.5 mg fentaNYL injection (SUBLIMAZE) 2 mL 1.5 mL Agents Name O2 Blood No blood administrations on file. Lines, Drains, and Airways Type Details Placement Removal Incision/Surgical Site 11/22/20; 1000; #1; 11/22/20 1000 by 11/18 1115 by Lda, No; Eye; Right; Mallory Morillo, Discontinue 12/06/20; 1115 RN Peripheral IV Placement Date: 12/06/20 1104 by 12/06/20 1238 b y 12/06/20; Placement Shar Hendricks RN Stone, A ndrea L, RN Time: 1104; Pre-existing: No; Inserted by?: RN; Size (Gauge): 22 G; Orientation: Left, Posterior; Site Prep: ChloraPrep; Insertion attempts: 4 (2 Shar, 2 Namita); Blood draw with insertion?: no; Patient Tolerance: Tolerated well; Removal Date: 12/06/20; Removal Time: 1238; Removal Reason: Patient discharged; Catheter Tip: Intact Incision/Surgical Site 12/06/20; 1140; #2; 12/06/20 1140 by 06/0 10/07 1236 by Lda, No; Eye; Left; Janette Ogden RN Discontinue 12/20/20; 1236 documented in this encounter Social History Tobacco [...] of this encounter OR Notes Anesthesia PAT Timoteo - Talya Danielle APRN, CRNA - 12/04/2020 8:37 AM CDT cataract done 11/22/20 1 versed 1 fentanyl History: Smoker HTN documented in this encounter Miscellaneous Notes Anesthesia Postprocedure Evaluation - Maliha Champagne APRN, CRNA - 12/06/2020 12:28 PM CDT [facility] Anesthesia Post-op Note Patient: Sandip Montano Post-Op Diagnosis: Cataract of left eye, unspecified cataract type Procedure Performed: Procedure(s): Left - EXTRACAPSULAR CATARACT EXTRACTION WITH INTRAOCULAR LENS IMPLANT OF LEFT EYE - Wound Class: 1 CLEAN Anesthesia Type: MAC Post-op vital signs: Vitals Value Taken Time BP 191/68 12/06/20 1200 Temp 98.2 ??F (36.8 ??C) 12/06/20 1151 Pulse 58 12/06/20 1200 Resp 16 12/06/20 1200 SpO2 94 % 12/06/20 1200 Pain Score: Presence Of Pain: denies Post-op assessment: No anesthesia complication. Patient location: Phase 2 Airway Status: Patent Cardiovascular function: Satisfactory Hydration status: Satisfactory PONV: None Level of Consciousness: Awake Fully Participates Postop Assessment: Patient tolerated procedure well. Electronically signed by: Maliha Champagne APRN, CRNA 12/06/2020 12:28 PM Anesthesia Preprocedure Evaluation - Maliha Champagne APRN, CRNA - 12/06/2020 10:52 AM CDT [facility] Anesthesia Pre-op Evaluation Procedure: Procedure(s): Left - EXTRACAPSULAR CATARACT EXTRACTION WITH INTRAOCULAR LENS IMPLANT OF LEFT EYE - Wound Class: 1 CLEAN HPI: 79 y.o. old male with Cataract of left eye, unspecified cataract type NPO Status: Last Fluid Intake Time: 2099 Last Fluid Intake Date: 12/05/20 Last Food Intake Date: 12/05/20 No Known Allergies Past Medical History: Diagnosis Date ??? Hypertension (HRC) There is no problem list on file for this patient. Past Surgical History: Procedure Laterality Date ??? APPENDECTOMY ??? CHOLECYSTECTOMY Outpatient Medications as of 12/06/2020 Medication Sig ??? amLODIPine (NORVASC) 5 MG tablet Take 5 mg by mouth daily. ??? tobramycin-dexamethasone (TOBRADEX) 0.3-0.1 % eye drop suspension Place 1 Drop into right eye. Facility-Administered Medications as of 12/06/2020 Medication Dose Route Frequency ??? [COMPLETED] bupivacaine PF (MARCAINE) 0.75 % injection SOLN 1 mL 1 mL Left Eye Q3MIN PRN ??? [COMPLETED] bupivacaine PF (MARCAINE) 0.75 % injection SOLN 1 mL 1 mL Right Eye Q3MIN PRN ??? ketorolac (ACULAR) 0.5 % ophthalmic solution 1 Drop 1 Drop Left Eye Q3MIN PRN ??? lidocaine PF (XYLOCAINE) 1 % injection 0.1-1 mL 0.1-1 mL Injection ONCE PRN ??? [COMPLETED] moxifloxacin (VIGAMOX) 0.5 % ophthalmic solution 1 Drop 1 Drop Left Eye Q3MIN PRN ??? [COMPLETED] moxifloxacin (VIGAMOX) 0.5 % ophthalmic solution 1 Drop 1 Drop Right Eye Q3MIN PRN ??? [COMPLETED] phenylephrine (AK-DILATE) 2.5 % ophthalmic solution 1 Drop 1 Drop Left Eye Q3MIN PRN ??? [COMPLETED] phenylephrine (AK-DILATE) 2.5 % ophthalmic solution 1 Drop 1 Drop Right Eye Q3MIN PRN ??? sodium chloride 0.9% injection 2 mL 2 mL Intravenous PRN per Parameters ??? [COMPLETED] tetracaine (PONTOCAINE) 0.5 % ophthalmic solution 1 Drop 1 Drop Left Eye Once (Non-Scheduled) ??? [COMPLETED] tetracaine (PONTOCAINE) 0.5 % ophthalmic solution 1 Drop 1 Drop Right Eye Once (Non-Scheduled) ??? [COMPLETED] tropicamide (MYDRIACYL) 1 % ophthalmic solution 1 Drop 1 Drop Left Eye Q3MIN PRN ??? [COMPLETED] tropicamide (MYDRIACYL) 1 % ophthalmic solution 1 Drop 1 Drop Right Eye Q3MIN PRN Labs: No results found for: SODIUM, K, CHLORIDE, CO2, BUN, CREATININE, GLUCOSE No results found for: WBC, HGB, HCT, PLTS No results found for: INR Blood Bank: No results found for: ABO, ABSCR EKG: No results found for this or any previous visit. Physical Exam: BP (!) 183/71 Pulse 61 Temp 98.3 ??F (36.8 ??C) (Temporal Artery) Resp 16 SpO2 97% Assessment/Plan: Review of Systems Patient does not have GERD. Patient is a current smoker. The patient reports alcohol use. Patient denies any recent URI. History of PONV: No. History of motion sickness: No. Patient denies any personal or family history of anesthesia complications (PONV). Exam Mental Status: Alert and oriented. Mallampati score: II (Two). Mouth opening: Normal Thyromental Distance: > 3 finger breadths and Normal Neck Extension: Full Neck Circumference > 40 cm?: No Current airway assessment:Normal Cardiac Exam: Regular rate and rhythm. Respiratory Exam: Breath sounds clear to auscultation Assessment ASA Status: 2 . Plan Anesthesia type: MAC Induction: Maintenance: PONV Risk Score Peds:0 PONV Risk Score Adult: 0 Anesthetic plan, risks, benefits and alternatives discussed with: Patient. H&P Reviewed and Patient examined, no change observed IV access Antibiotics per surgery Electronically signed by: Maliha Champagne APRN, CRNA 12/06/2020 10:52 AM documented in this encounter Plan of Treatment Not on filedocumented as of this encounter Visit Diagnoses Not on filedocumented in this encounter Administered Medications Inactive Administered Medications - up to 3 most recent administrations Medication Order MAR Action Action Date Dose Rate Site fentaNYL (SUBLIMAZE) injection Given 12/06/2020 11:44 AM CDT 0.5 mL Intravenous, Starting on Anay 12/06/20 at 1131, Until Anay 12/06/20 at 1158 Given 12/06/2020 11:31 AM CDT 1 mL midazolam (VERSED) injection Given 12/06/2020 11:44 AM CDT 0.5 mg Intravenous, Starting on Anay 12/06/20 at 1131, Until Anay 12/06/20 at 1158 Given 12/06/2020 11:31 AM CDT 1 mg documented in this encounter Care Teams Set Off Blocker Relationship Specialty Start Date End Date Lexus Shah MD PCP - General Family Practice 11/22/20 [address] [facility] [id number] documented as of this encounter
--- OUTSIDE RECORDS SUMMARY | 2022-04-28 09:58 | XMS_ITS | Encounter Summary ---
:1940 Author Organization [facility] Address [address], [place] [address] Care Team Providers Name Role Phone Lexus Shah MD Primary Care Provider Reason for Visit Auth/Cert Specialty Diagnoses / Procedures Referred By Contact Refer red To Contact Diagnoses Cataract of right eye, unspecified cataract type Procedures EXTRACAPSULAR CATARACT EXTRACTION WITH INTRAOCULAR LENS IMPLANT OF RIGHT EYE Referral ID Status Reason Start Date Expiration Date Visits Requ ested Visits Authorized [id number] 1 1 Encounter Details Date Type Department Care Team Description 11/22/2020 Hospital Encounter [facility] Darian [address] [place] [id number] (Wo rk) Social History Tobacco Use Types [...] Sign Reading Time Taken Comments Blood Pressure 150/63 11/22/2020 10:30 AM CDT Pulse 59 11/22/2020 10:30 AM CDT Temperature 36.2 ??C (97.2 ??F) 11/22/2020 10:15 AM CDT Respiratory Rate 16 11/22/2020 10:30 AM CDT Oxygen Saturation 96% 11/22/2020 10:30 AM CDT Inhaled Oxygen Concentration - - Weight 61.2 kg (135 lb) 11/19/2020 12:13 PM CDT Height 170.2 cm (5' 7) 11/19/2020 12:13 PM CDT Body Mass Index 21.14 11/19/2020 12:13 PM CDT documented in this encounter Discharge Instructions Discharge InstructionsRomi Ordonez RN - 11/22/2020 10:26 AM CDT Images from the original note were not included. [address] ???[place] [address]??? POST OP INSTRUCTIONS FOR CATARACT SURGERY Dr. SCHERER Follow up appointment at Dr Scherer???s office on:11/22 at 1:40pm The care of your eye [...] excessive drainage, call Dr Scherer???s office at [phone] or his cell [phone]. 08/11/17 documented in this encounter Medications at Time of Discharge Medication Sig Dispensed Refills Start Date End Date amLODIPine (NORVASC) 5 MG Take 5 mg by mouth 0 tablet daily. tobramycin-dexamethasone Place 1 Drop into 0 (TOBRADEX) 0.3-0.1 % eye right eye. drop suspension documented as of this encounter Procedure Notes Eusebio Scherer MD - 11/22/2020 10:13 AM CDT [facility] Operative Note Surgery Date: 11/22/2020 Surgeon(s) [...] * Findings: 0 Technique: 0 Complications: 0 [facility] Operative Note DATE OF SERVICE: 11/22/2020 [...] the corneal surface. He was brought to [facility] operating room where under IV sedation the [...] ophthalmic solution 1010 (Given - Provider: Mallory Morillo, JULIANE) ONCE PRN, Starting on Anay 11/22/20 at 1006, Intra-op bupivacaine PF (MARCAINE) 0.75 % injection SOLN 1 mL (COMPLETED) 0920 (Given - Provider: Dominique Obrien RN)0925 [...] minutes, Starting on Anay 11/22/20 at 0852, Instill one drop every 3 [...] ophthalmic solution 1010 (Given - Provider: Mallory Morillo, JULIANE) ONCE [...] Dominique Obrien RN)0930 (Given - Provider: Dominique Obrien, JULIANE) 1 Drop, Right Eye, Q3MIN PRN, Parameters [...] Dominique Obrien, JULIANE)0930 (Given - Provider: Dominique Obrien, JULIANE) 1 Drop, Right Eye, Q3MIN PRN, Other, q3 minutes, Starting on Anay 11/22/20 at 0852, For 3 doses, Instill one drop every 3 minutes x 3 to surgical eye., Pre-op documented in this encounter Care Teams Geography Faculty Member Relationship Specialty Start Date End Date Lexus Shah MD PCP - General Family Practice 11/22/20 [address] [place] [address] documented as of this encounter
--- OUTSIDE RECORDS SUMMARY | 2022-04-28 09:58 | XMS_ITS | Encounter Summary ---
:1940 Author Care Team Providers Name Role Phone Niesha THURSTON Primary Care Provider [phone] Reason for Visit 2 Week Follow up Assessment and Plan 1. Retention of urine ? bladder scan (PROC) 2. Lower urinary tract symptoms due to benign prostatic hypertrophy s/o flomax Discussion Note Assessment: - Acute urinary retention - BPH with nocturia, currently on tamsul osin - Metastatic adenocarcinoma, etiology un clear still Plan: - Discussed the etiology and pathophysio logy of acute urinary retention - PVR today 180mL - Discussed options including replacing Spangler catheter versus continuing trial void. Patient is already failed learning intermittent catheterization. Discussed the risks of continuing trial void at home including needing to return to the [facility] department for catheter placement. Patient does not want catheter placed at this time and feels strongly that he will be able to urinate on his own. He is w illing to accept the risk of needing a c atheter replaced in emergency department. - Discussed the differential diagnosis, pathophysiology and nature of benign prostate enlargement causing lower urinary tract symptoms - Counseled patient on conservative vonda gement options including appropriate fluid management, avoidance of diuretics including caffeine and alcohol - Continue Tamsulosin Hydrochloride (Neptali max?) 0.4 mg P.O. daily - Extensively reviewed patient's hospita records. Per family patient has likely colon cancer. Undergoing work-up by GI with scopes in the near future - Follow up in 1 month for symptom reass essment Patient educational handouts: No information available. Plan of Care Reminders Provider Appointments Established 05/13/2022 3:10PM Antoni Meade, Lab None recorded. ? ? Referral None recorded. ? ? Procedures Bladder Scan (PROC) 04/08/2022 Mary_alexei saldivar Surgeries None recorded. ? ? Imaging None recorded. ? ? Medications Name Start Date ? ? amlodipine 5 mg tablet ? TAKE 1 TABLET BY MOUTH ONCE DAILY brimonidine 0.2 % eye drops ? INSTILL 1 DROP IN SURGICAL EYE TWICE A DAY FOR 7 DAYS finasteride 5 mg tablet ? TAKE 1 TABLET (5 MG) BY MOUTH EVERY MORNING. keuhnxxr-zafgisijn-mbhhwafa 3.5 mg/mL-10,000 unit/mL-0 .1% eye drops ? [...] LNP-S, PF, 3 mcg/0.2 mL dose, tank-sucrose (Profilepasser) 09/12/2021 Social History Tobacco Smoking Status Former Smoker What is your level of alcohol consumption? Moderate Has tobacco cessation counseling been provided? N Are you currently employed? N Could you be ? N Preferred Language Northern Irish What was the date of your most [...] (No Notes) Functional Status Unknown. Past Encounters 04/08/2022 Retention of Urine; Lower Urinary Tract Symptoms Due to Benign Prostatic Hypertrophy Antoni Meade, DO: [address], [address], [place] [address], Ph. 04/01/2022 Retention of Urine; Lower Urinary Tract Symptoms Due to Benign Prostatic Hypertrophy Antoni Meade, DO: [address], [facility] [address], [place] [address], Ph. [phone] History of Present Illness Note: <div>Patient has a history of urinary retention, BPH who presents for follow up.</div><div>
</div><div>Patient was seen as inpatient 03/20/[address] Calhoun. Patient presented to [facility] with back pain, chest pain, shortness of breath. CT scan that time revealed bilateral hydronephrosis down to the level of the bladder which was distended and had an enlarged prostate. Additionally there were numerous sclerotic lesions of the bone. Spangler catheter was placed. At that time patient denied any baseline difficulty with urination. Did have a history of elevated PSA and had a biopsy in 2008 which was negative. PSA at that time approximately7. PSA completed 03/10/2022 4.94, 4.08 03/20/2022. Patient [...] an upcoming appointment for that. Reports at baselinehaving occasional weak stream and nocturia. </div><div>
</div><div>: At last visit patient was started on tamsulosin. Catheter removed this morning for trial void. Since catheter removal patient reports being unable to urinate as he did not have any sensation to. Random scan of 180mL, has not drank much today. </div> Review of Systems ? Comprehensive General Adult ROS Reported By: Patient Constitutional: Constitutional: no fever, no chills Eyes: Eyes: no dry eyes, no vision change, no irritation Endocrine: Endocrine: no fatigue, no in creased thirst Cardiovascular: Cardiovascular: no chest flo n, no palpitations Integumentary: Skin: no rashes, no change i n skin color Respiratory: Respiratory: no wheezing, no cough, no shortness of breath Gastrointestinal: Gastrointestinal: no abdomin al pain, no nausea, no vomiting, no constipation, no GERD Musculoskeletal: Musculoskeletal: no neck lfo n, no back pain Neurologic: Neurologic: no tremor, no di zziness, no numbness, no headaches Genitourinary: Genitourinary: no incontinen ce, no difficulty urinating ENMT: Ears: no ear pain. Mouth/Thr oat: no sore throat Allergic/Immunologic: Allergy/Immunologic: no itch ing, no hives Hematologic/Lymphatic: Hematologic/Lymphatic no swo llen glands, no excessive bleeding Psychiatric: Psych: no hallucinations, (n ormal) sleep disturbances: mismatch of sleep / wake fauzia edule with lifestyle needs Physical Exam ? General Adult Exam Male [...]
--- OUTSIDE RECORDS SUMMARY | 2022-04-28 09:58 | XMS_ITS | Encounter Summary ---
:1940 Author Organization [facility] Address [address] [address] Care Team Providers Name Role Phone Lexus Shah MD Primary Care Provider Encounter Details Date Type Department Care Team Description 11/22/2020 Orders Only [facility] [place], [place] [address] Interface provider [phone] [place] [address] Social History Tobacco Use Types Packs/Day Years [...] Name Priority Date/Time Associated Diagnosis Comme nts LABORATORY REPORT 11/22/2020 Results fo r this procedure are in the resu lts section. documented in this encounter Results LABORATORY REPORT (11/22/2020) Narrative This result has an attachment that is no t available. Interface Provider DUMMY/OTHER/AR documented in this encounter Visit Diagnoses Not on filedocumented in this encounter Care Teams Deboning Team Leader Relationship Specialty Start Date End Date Lexus Shah MD PCP - General Family Practice 11/22/20 [address] [place] [address] documented as of this encounter
--- OUTSIDE RECORDS SUMMARY | 2022-04-28 09:58 | XMS_ITS | Encounter Summary ---
:1940 Author Organization [facility] Address [address] [place] [address] Care Team Providers Name Role Phone Lexus Shah MD Primary Care Provider Encounter Details Date Type Department Care Team Description 11/29/2020 Notes/Orders [facility] Sima Quigley, Preop general [facility] Center RN physical exam [address] (Primary Dx) [place] [address] [place] [address] [phone] Social History Tobacco Use Types Packs/Day Years [...] pre-operative examinatio n documented in this encounter Care Teams Proofing Machine Operator Relationship Specialty Start Date End Date Lexus Shah MD PCP - General Family Practice 11/22/20 [address] [place] [address] documented as of this encounter
--- OUTSIDE RECORDS SUMMARY | 2022-04-28 09:58 | XMS_ITS | Clinical Summary ---
:1940 Author Organization [facility] Address [address] [place] [address] Care Team Providers Name Role Phone Lexus Shah MD Primary Care Provider Source Comments You are receiving this document as you are listed as the primary care provider,follow-up provider, or the patient has been referred to you for consultation.This is in compliance with the Medicare and Medicaid EHR Incentive Program,which states Providers who transition their patient to another setting of careor provider of care or refers their patient to another provider of care shouldprovide summarycare record for each transition of care or referral. [facility] Allergies No known active allergies Medications Medication Sig Dispensed Refills Start Date End Date Status amLODIPine (NORVASC) 5 Take 5 mg by 0 Active MG tablet mouth daily. tobramycin-dexamethason Place 1 Drop into 0 Active e (TOBRADEX) 0.3-0.1 % right eye. eye drop suspension Active Problems No known active problems Social History Tobacco Use Types Packs/Day Years [...] Assigned at Date Recorded Not on file Last Filed Vital Signs Vital Sign Reading [...] Mass Index 21.14 11/19/2020 12:13 PM CDT Plan of Treatment Health Maintenance Due Date Last Done Comments Hep C Screening (Preventive 1940 Services) Medicare Welcome Visit 1940 COVID-19 Vaccine (#1) 06/18/1941 Pneumococcal 65+ Yrs (1 - PCV) 1948 DTaP/Tdap/Td (1 - Tdap) 1961 Zoster/Shingles (1 of 2) 1992 Influenza (#1) 2022 HepA Aged Out No longer eligib le based on patient's age to complete this topic HepB Aged Out No longer eligib le based on patient's age to complete this topic Hib Aged Out No longer eligib le based on patient's age to complete this topic IPV (Polio) Aged Out No longer eligib le based on patient's age to complete this topic MCV4 Aged Out No longer eligib le based on patient's age to complete this topic Medical Devices Implanted Type Area [employer]zen [employer] Manager Device Shelf Model / Identifier Expiration Serial / Lot Date Mpcboo - [id number] DEVICE Right: 05/06/2023 PCBOO / Implanted: Qty: 1 on 11/22/2020 by Eusebio Scherer MD at [facility] [id number] / Intraocular Lens Implant DEVICE Left: Brent 08/11 DCBOO / Implanted: Qty: 1 on 12/06/2020 by Eusebio Scherer MD at [facility] Ophthalmic [id number] / Insurance Payer Benefit Plan / Subscriber ID Effective Dates Phone Addre ss Type Group HUMANA HUMANA MEDICARE [id number] 2018-Present [phone] Medicare PPO Care Teams Insurance Sales Agent Relationship Specialty Start Date End Date Lexus Shah MD PCP - General Family Practice 11/22/20 [address] [place] [address]
--- OUTSIDE RECORDS SUMMARY | 2022-04-28 09:59 | XMS_ITS | Clinical Summary ---
:1940 Author Organization [employer] [place] [address] Care Team Providers Name Role Phone Niesha Mariscal Primary Care Provider [phone] Absolute Antibody [facility] [place] Unavailable [phone] Allergies Active Allergy Reactions Severity Noted Date Comments Lisinopril Cough 03/27/2022 Medications Medication Sig Dispensed Refills Start Date End Date Status prednisoLONE sodium Place 1 Drop into 0 Active phosphate 1% right eye four ophthalmic solution times daily. (CADY AMB MIXTURE) Discard bottle 15 days after opening. Refrigerate. Unopened bottle expires: naproxen (ALEVE) 220 Take 220-440 mg by 0 Active mg tablet mouth once daily if needed for Pain. oxygen-air delivery Oxygen for home 1 Each 0 03/28/2022 Active systems (HOME use. Liters per OXYGEN)Indications: GI minute:Oxygen 1-2 cancer (HC) Lpm PRN to keep O2 sats above 90% or if SOB. Frequency of use: NEEDED with portability.;. Length of need: 2 months Months. tamsulosin (FLOMAX) Take 0.4 mg by 0 Active 0.4 mg capsule mouth once daily after a meal. Orders on label do not specify when to take the pill, other than take one capsule by mouth every day. finasteride (PROSCAR) Take 1 Tablet (5 90 Tablet 3 04/09/2022 Active 5 mg mg) by mouth every tabletIndications: morning. Urine retention Active Problems Problem Noted Date Bony metastasis of unknown origin 03/20/2022 Elevated serum creatinine 03/20/2022 Bilateral hydronephrosis 03/20/2022 Bilateral pleural effusion 03/20/2022 Acute respiratory failure with hypoxia 03/20/2022 Nephrolithiasis 03/20/2022 Peripheral arterial disease 03/10/2022 Skin lesion of face 08/25/2013 Elevated prostate specific antigen (PSA) 04/26/2009 Hydrocele, unspecified 10/26/2008 Overview: Left Side.Has this for over 40 years. No change or symptoms. Tobacco use disorder 06/22/2008 Unspecified essential hypertension 11/01/2007 Resolved Problems Problem Noted Date Resolved Date Acute urinary retention 03/20/2022 03/20/2022 Encounters Date Type Specialty Care Team Description 04/28/2022 Travel 04/28/2022 Telephone Yaima Snider MD 04/27/2022 Home Care Visit Enrique Martin, CARE CO ORDINATION OT 04/23/2022 Home Care Visit Steph Leong OT - RAE E VISIT K, GARCIA 04/23/2022 Telephone Yaima Snider MD 04/22/2022 Home Care Visit Jose Luis Garza VISIT D, RN 04/22/2022 Home Care Visit Radha Kennedy LECTURER IN MARKETING - HOME VISIT 04/22/2022 Home Care Visit Nesha Jean-Baptiste MSW - INI TIAL ASSESSMENT TELEPHONE DIRECTORY DELIVERER 04/22/2022 Home Care Visit Nesha Jean-Baptiste MSW - CAS E COMMUNICATION TELEPHONE DIRECTORY DELIVERER 04/21/2022 Home Care Visit Latonia Alexander, PT - RAE E VISIT PT 04/21/2022 Ancillary Procedure 04/21/2022 Home Care Visit Nesha Jean-Baptiste MSW - CAS E COMMUNICATION TELEPHONE DIRECTORY DELIVERER 04/21/2022 Travel 04/18/2022 Home Care Visit Jose Luis Garza VISIT D, RN 04/18/2022 Home Care Visit Steph Leong OT - RAE E VISIT K, GARCIA 04/17/2022 Home Care Visit Latonia Alexander, PT - RAE E VISIT PT 04/17/2022 Home Care Visit Enrique Martin, OT - VA SSED VISIT OT 04/17/2022 Telephone Sandip Kirkpatrick (MR I) MD Josesito 04/17/2022 Home Care Visit Chayo Cullen CARE CO ORDINATION M, MEDICAL SCIENCE LIAISON 04/17/2022 Home Care Visit Enrique Martin, CARE CO ORDINATION OT 04/16/2022 Home Care Visit Nesha Jean-Baptiste CHILD CARE TEACHER - MIS SED VISIT TELEPHONE DIRECTORY DELIVERER 04/15/2022 Home Care Visit Radha Kennedy LECTURER IN MARKETING - HOME VISIT 04/14/2022 Home Care Visit Latonia Alexander, PT - RAE E VISIT PT 04/14/2022 Travel 04/14/2022 Home Care Visit Enrique Martin, CARE CO ORDINATION OT 04/14/2022 Home Care Visit Enrique Martin, CARE CO ORDINATION OT 04/11/2022 Surgery [facility], ESOPHAGOGASTROD UODENOSCOPY WITH Brent Salvador MD BIOPSY 04/11/2022 Anesthesia Event Yaima Celaya MD 04/11/2022 Hospital [facility], Encounter Brent Salvador MD 04/11/2022 Travel 04/10/2022 Home Care Visit Latonia Alexander, PT - RAE E VISIT PT 04/10/2022 Home Care Visit Steph Leong OT - RAE E VISIT K, GARCIA 04/09/2022 Ancillary Procedure 04/09/2022 Preop Visit Sandip Kirkpatrick Preoperative Exam (ANTONIETTA, Josesito CARRION MD 04/11/22) 04/09/2022 Travel 04/08/2022 Home Care Visit Radha Kennedy LECTURER IN MARKETING - HOME VISIT 04/08/2022 Home Care Visit Jose Luis Garza ME VISIT D, RN 04/08/2022 Home Care Visit Steph Leong OT - MIS SED VISIT K, GARCIA 04/08/2022 Telephone Votel, Sandip Bellamy MD 04/07/2022 Home Care Visit Latonia Alexander, PT - RAE E VISIT PT 04/07/2022 Travel 04/07/2022 Telephone VotelSandip MD 04/03/2022 Home Care Visit Jose Luis Garza VISIT D, RN 04/03/2022 Home Care Visit Brent, Radha J LECTURER IN MARKETING - MISSED VISIT 04/03/2022 Home Care Visit Latonia Alexander, PT - MIS SED VISIT PT 04/03/2022 Travel 04/03/2022 Telephone Enrique Martin, Home Care (Req. auth. for OT further OT visi ts.) 04/02/2022 Home Care Visit Enrique Martin, OT - IN ITIAL ASSESSMENT OT 04/02/2022 Orders Only Callum Ledezma <No scans sapphire ched> MD Ramos 03/31/2022 Home Care Visit Latonia Alexander, PT - INI TIAL ASSESSMENT PT 03/31/2022 Home Care Visit Enrique Martin, CARE CO ORDINATION OT 03/31/2022 Telephone Latonia Alexander, Home Care ( Requesting home care PT orders.) 03/28/2022 Home Care Visit Linda Robles RN SN - OAS IS START OF CARE 03/28/2022 Telephone Niesha Mariscal OXYGEN (ORD ER FOR HOME OXYGEN) KARENA Lundy 03/28/2022 Orders Only Niesha Mariscal <No scans a ttached> KARENA Lundy 03/28/2022 Telephone Linda Robles, chemistry department chair 03/27/2022 Ancillary Procedure 03/27[facility], MD Josesito acute hypoxic r zacarias failure) 03/27/2022 Travel 03/26/2022 Telephone Linda Robles RN Home Care 03/26/2022 Patient Outreach Miya Palma Primary RN Care Management; JULIANE Camacho [facility] (L lalo=74) 03/25/2022 Telephone Leanna Webster, Referral (Liaison Referral) RN 03/23/2022 Travel 03/20/2022 Hospital [facility] Bony metastasis of unknown origin (HC) (Primary Dx); - Encounter Hospitalists Of Acute respiratory failure with hypoxia ( HC); 03/25/2022 Alex Livingston Bilateral p leural effusion MD Newton Espinosa, MD Rodolfo Valencia Asma, MBBS Discharge Summary - Ed [place] MBBS - 03/25/2022 1:47 PM CDT Images from the original not e were not included. HOSPITALIST DISCHARGE SUMMAR Y ? ? [facility] Admission Date: 03/20/2022 Discharge Date: 03/25/2022 Discharge Plan: Sandip guillen was discharged to with home health care. Principal Diagnosis Acute hypoxic resp failure Hospital Problem List Principal Problem: Bony metastasis of unknown origin (HC) Active Problems: Unspecified essential hyper tension Tobacco use disorder Elevated prostate specific antigen (PSA) Peripheral arterial disease (HC) Elevated serum creatinine Bilateral hydronephrosis Bilateral pleural effusion Acute respiratory failure w ith hypoxia (HC) Nephrolithiasis ADDITIONAL COMMENTS REGARDIN G DIAGNOSIS SPECIFICITY Additional Diagnosis Informa tion ?? Hospital Course Sandip Montano is a 81 y.o . 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 Upon arrival to ED, his britney l signs were normal; Laboratory evaluation hemoglobin of 13.2 with normal WBC and platelets. troponin was negative. CT chest showed no pulmonary embolism however there was a large left and moderate righ t-sided pleural effusion with atelectasis, severe emphysematous changes and diffuse osseous sclerosis concerning for metastatic disease. Also noted diffuse thickening of the distal esophagus. There is a lso partially visualized left-sided hydronephrosis present prompting an abdominal CT to be done which demonstrated bilateral hydronephrosis (left greater than right) with nep hrolithiasis but no obstruct ing stone visualized. There was also noted heterogeneous enlarged prostate gland with associated sclerosis of the bony skeleton likely related to widespread metastatic diseas e. Spangler catheter was placed in the emergency department and he was transferred to [facility] for further urologic and oncology evaluations. He had thoracentesis of his left pleural effusion, with 1200 cc of clear yellow fluid removed. Cytology showed adenocarcinoma, though initial stains for prostate and lung were both negative.He had a demetrio ac crest biopsy on 03/21 to ai d in diagnosis. MR of the entire spine showed diffuse bony replacement, but no fractures or cord compression noted. A bone scan showed diffusely inhomogeneous appearance, pre dominating in the axial and proximal appendicular skeleton. There was scattered small areas of increased uptake and overall moderate moderately inhomogeneous uptake. All of it was consistent with multiple skeletal metastases. ?? Patient continued to require 4 L of oxygen even following initial left thoracentesis. 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 Discharge planning was discu ssed with patient ,daughter and family due to concerns of re occumilation of pleural fluid and continued need for oxygen support.Patient and family agreed that patient would return home with home care a nd follow with oncology as outpt.Oxygen was arranged for patient of 2 litres NC with portability. Urology also evaluated and p atient failed voiding trial and spangler was replaced prior to discharge with plan for outpt follow up. Recommendations for Outpatie nt Provider ? ? PCP: KARENA Oseguera Recommendations for outpati ent provider Specific recommendations to be addressed at the follow up visit: Resume care,needs follow up with oncology for results of bone biopsy and treatment plan. Needs to be weaned from oxyg en support. Medication regimen changes: no medications were changed. Follow-up labs/imaging: BMP and CBC at post-hospital visit Other specialty follow-up no t included in DC orders: None Special considerations: none . Functional evaluations: Fall Risk: Total Score (If 5 or > is High Risk): 7 (03/25/22899) NuDESC (>/=2 abnormal): 0 ( 03/25/22899) MOCA: // SLUMS: Discharge Medications Your Home Medicines START taking these medicines Instructions oxygen-air delivery systems For diagnoses: Acute respira tory failure with hypoxia (HC) Commonly known as: HOME OXYG EN Oxygen for home use. Liters per minute: 2 per nasal cannula. Frequency of use: Continuous with portability.;. Length of need: 2 months Months. CONTINUE taking these medici amber Instructions Aleve 220 mg tablet Generic drug: naproxen Take 220-440 mg by mouth on ce daily if needed. amLODIPine 5 mg tablet For diagnoses: Essential hyp ertension Commonly known as: NORVASC Take 1 Tablet (5 mg) by shannan once daily. prednisoLONE sodium phosphat e 1% ophthalmic solution (CADY AMB MIXTURE) Place 1 Drop into right eye four times daily. Discard bottle 15 days after opening. Refrigerate. Unopened bottle expires: Polytrim ophthalmic solution Generic drug: trimethoprim-p olymyxin b Place 1 Drop into both eyes four times daily. Where to get your medicines You have received printed pr escription(s) for these medicines or supplies. Take these to your preferred pharmacy. Bring a paper prescription f or each of these medications ?? oxygen-air delivery syste ms Pertinent Findings / Procedu res First weight: Last weight: Consultants Unique, MD Belgica Turner, Wei camacho MD Diet / Activity / Follow-Up After Discharge Orders and I nstructions AMB CONSULT TO HOME CARE/[facility] assisted Health Certification/F lalo to Face Attestation: I certify that this patient is confined to his/her home and needs intermittent care home care, physical therapy and/or speech therapy or continues to need occupational therapy. A plan of care has been established and will be reviewed periodically by a physician or allowed practitioner. Services will be furnished while the patient is under the care of a physician or allowed practitioner. The nani ent had a [id number] encou nter with a physician or an allowed non-physician practitioner and the encounter was related to the primary reason for home health. Date of the Face to Face Enc ounter: 03/25/22 Based on my findings, review of the medical records, and/or collaboration with the other providers, the following services are medically necessary home health services: Physical Therapy,skilled dequan sing. This patient is confined to his/her home because: There is a taxing effort to leave the home due to debilitation Patient requires the assista nce of another individual in order to leave the home. Provider following for home care services: KARENA Oseguera Electronically signed, Kimberly RING 03/25/2022 Which Home Care Service is Required?: Home Care After Hospital Follow Up Ap pointment(s) Follow up with urology in 1 week for voiding trial. Please call us at [phone] to schedule an appointment. When to follow up: 6 to 10 days When is patient being disch arged?: Today NURSING COMMUNICATION [facility] Your first [facility] e Care visit is planned following hospital discharge. ?? An [facility] nurse or therapist will call you to schedule a visit. The call will occur the day before your first visit or by 9am the day of your first visit. ??Please call [phone] ed mcgee ask for [facility] Care triage if you have further questions about home health. Thank you. NURSING COMMUNICATION 16 fr coude catheter placed 03/25/2022 at 1602. Follow-up with Urology in 1 week for voiding trial. Occupational Therapy Lloyd lucas nd Treat Physical Therapy Lloyd and T reat Primary Care Provider viola orta up appointment(s) Hospital follow-up on March 27 at 2:[address] Kirkpatrick. Your PCP, KARENA Sandoval was not available in the timeframe recommended for hospital follow-up. Address: [facility], [address] [place] [address], [facility] When to follow up: 1 to 5 d ays When is patient being disch arged?: Today Regular diet: - eat a wide variety of дмитрий ds, including fruits and vegetable, dairy, grains and meats - limit the amount of solid fat such as butter, margarine and shortening - get most of your fat sourc es from fish, nuts and vegetable oils Retirement Eval and Tr eat Up as tolerated Get regular activity and tr y to walk for a total of 30 minutes per day. Start by walking for 5 to 10 minutes at one time and slowly build to walking for 30 minutes one time. Rest is also an important pa rt of healing. Slowly return to your regular level of activity. Save your energy by spreading out activities that make you tired. Rest as needed. When should you be concerne d? Your health care provider i s: KARENA Oseguera Please call your health care provider if: - you feel you are getting w orse or having an increase in problems - fever greater than 101 deg ash - increasing shortness of br eath - any signs of infection (in creasing redness, swelling, tenderness, warmth, change in appearance, or increased drainage) - blood in your urine or sto ol - coughing or vomiting blood - nausea (upset stomach) and vomiting and/or diarrhea that will not stop - severe pain that is not re lieved by medicine, rest or ice Call 911 if you feel you are having a medical emergency. Why were you at the hospita ? You were in the hospital fo r acute hypoxic resp failure and workup. AMB CONSULT TO PALLIATIVE C ARE [facility]. At the point of this consult still pending biopsy results and discussion of those with [facility]. Palliative Care Services to be received in: Clinic Preferred Clinic: [facility] Type of Services Indicated? : Symptom Management Facilitate Goals of Care Con versation Pending Studies Lab results that may not be resulted at time of discharge: (From admission through now) None Total time spent on discharg e coordination: 35 minutes. Patient was seen and examined today. MARÍA ELENA Traore Hospitalist, [facility] ? ? [phone] Discharge Summary - Jackie Lowery NP - 03/25/2022 3:26 PM CDT Follow up with Geovanna Torres Oncologist of your choice for follow up for bone biopsy results. Results should be in this week sometime. F/u appt can be made in 1 week. Call Charlee/Nurse Fortunato Cooper rs at for que stions/ follow up appt. 03/20/2022 Orders Only Staff, Other Clinical <No sc ans attached> 03/19/2022 Orders Only Staff, Other Clinical <No sc ans attached> 03/19/2022 Orders Only Scanner <No scans attac hed> 03/19/2022 Orders Only Scanner <No scans attac hed> 03/19/2022 Travel 03/19/2022 Nurse Triage Niesha Mariscal PA S hortness Of Breath 03/10/2022 Preop Visit Niesha Mariscal PA P reoperative Exam (R eye) 03/10/2022 Travel 02/27/2022 Orders Only Scanner <No scans attac hed> from Last 3 Months Immunizations Name Administration Dates Next Due COVID-19 vaccine (Moderna 100mcg/0.5mL) MADDY DHALIWAL 10/19/2020, 09/20/2020 Family History Medical History Relation Name Comments Good Health Father Good Health Mother Relation Name Status Comments Father Mother Social History Tobacco Use Types Packs/Day Years Used Date Former Smoker Cigarettes 0.5 Quit: 03/13/20 Smokeless Tobacco: Never Used Tobacco Cessation: Counseling Given: Yes Alcohol Use Standard Drinks/Week Comments Yes 10 (1 standard drink = 0.6 oz pure alcoh ol) 1 drink per night Alcohol Habits Answer Date Recorded How often do you have a drink containing alcohol? Not asked How many drinks containing alcohol do you have on a Not aske d typical day when you are drinking? How often do you have six or more drinks on one Not asked occasion? Comment: 1 drink per night 03/27/2022 Sex Assigned at Date Recorded Not on file COVID-19 Exposure Response Date Recorded In the last 10 days, have you been in contact Unable to asse ss 04/28/2022 7:59 AM CDT with someone who was confirmed or suspected to have Coronavirus/COVID-19? Obstetrics History Last Filed Vital Signs Vital Sign Reading Time Taken Comments Blood Pressure 114/60 04/23/2022 12:20 PM CDT Pulse 68 04/23/2022 12:20 PM CDT Temperature 36.8 ??C (98.3 ??F) 04/23/2022 12:20 PM CDT Respiratory Rate 20 04/23/2022 12:20 PM CDT Oxygen Saturation 92% 04/23/2022 12:20 PM CDT 3 Lpm Inhaled Oxygen Concentration - - Weight 54.9 kg (121 lb) 04/09/2022 1:11 PM CDT Height 170.2 cm (5' 7) 04/10/2022 8:51 AM CDT Body Mass Index 20.16 09/24/2020 2:48 PM TOUR OPERATOR Plan of Treatment Upcoming Encounters Date Type Specialty Care Team Description 04/29/2022 Home Care Visit Kaitlin Avelar [address] [place], [place] [address] (Wo rk) 04/29/2022 Home Care Visit Latonia Alexander, PT [address] [place] [address] (Wo rk) 04/30/2022 Home Care Visit Enrique Martin OT [address] [place], [place] [address] (Wo rk) 05/01/2022 Home Care Visit Guille Garza, RN [address] [place], [place] [address] (Wo rk) 05/06/2022 Home Care Visit Radha Kennedy [address] [place], [place] [address] (Wo rk) 05/08/2022 Home Care Visit Guille Garza, RN [address] [place], [place] [address] (Wo rk) Health Maintenance Due Date Last Done Comments Pneumococcal series for age 65+ (1 1948 - PCV) Tdap 1951 Hepatitis C screening for age 0512/16/1960 18-79 Zoster (shingles) series for age 0512/16/1961 50+ (1 of 2) Medicare Wellness for age 65+ 12/17/2007 Tetanus booster 07/17/2020 07/17/2010 (Postponed) COVID-19 vaccine series (4 - 09/02/2021 07/08/2021, 04/ 021, Booster for Moderna series) 09/20/2020 BMI (ht and wt on same day) for 09/24/2021 09/24/2020, 06/0 12/2015, age 18+ 12/03/2015, Additional history exists Depression screening for age 12+ 11/07/2021 11/07/2020, , 12/03/2015, Additional history exists Influenza for age 65+ 03/20/2022 Procedures Procedure Name Priority Date/Time Associated Comments Diagnosis CT HEAD BRAIN W LUIS ANGEL 04/21/2022 Adenocarcinoma Results fo r 9:25 AM CDT (HC) this procedure are in the results section. PATH TISSUE EXAM Today 04/11/2022 Results for 10:20 AM CDT this procedure are in the results section. ESOPHAGOGASTRODUODENOSCOPY WITH Tier 2 04/11/2022 Esophagea l Cancer BIOPSY 10:00 AM CDT ENDOSCOPY 04/11/2022 Results for 9:46 AM CDT this procedure are in the results section. XR CHEST 2 VIEWS PA AND LATERAL Routine 04/09/2022 Pleural e ffusion Results for 1:55 PM CDT this procedure are in the results section. COVID 19 Routine 04/09/2022 Pre-op exam Results for 1:13 PM CDT this procedure are in the results section. COVID 19 COLLECTION Routine 04/09/2022 Pre-op exam Results for 1:13 PM CDT this procedure are in the results section. SCAN CORRESP-LABORATORY RESULTS 04/01/2022 Results for 12:00 AM CDT this procedure are in the results section. SCAN CORRESP-IMAGING 04/01/2022 Results for 12:00 AM CDT this procedure are in the results section. SCAN CORRESP-IMAGING 04/01/2022 Results for 12:00 AM CDT this procedure are in the results section. RED CELL MORPHOLOGY Routine 03/27/2022 Bony metastasis of Re sults for 4:18 PM CDT unknown origin this (HC) procedure are in the results section. PLATELET ESTIMATE Routine 03/27/2022 Bony metastasis of Resu lts for 4:18 PM CDT unknown origin this (HC) procedure are in the results section. MANUAL DIFFERENTIAL Routine 03/27/2022 Bony metastasis of Re sults for 4:18 PM CDT unknown origin this (HC) procedure are in the results section. CBC WITH AUTO DIFFERENTIAL Routine 03/27/2022 Bony metastasi s of Results for 4:18 PM CDT unknown origin this (HC) procedure are in the results section. CBC WITH AUTO DIFFERENTIAL Routine 03/27/2022 Bony metastasi s of Results for 4:18 PM CDT unknown origin this (HC) procedure are in the results section. BASIC METABOLIC PANEL Routine 03/27/2022 Bony metastasis of Results for 4:18 PM CDT unknown origin this (HC) procedure are in the results section. XR CHEST 2 VIEWS PA AND LATERAL Routine 03/27/2022 Pleural e ffusion Results for 3:40 PM CDT this procedure are in the results section. XR CHEST 1 VIEW PORTABLE Routine 03/25/2022 Res ults for 12:37 PM CDT this procedure are in the results section. HEMOGLOBIN Early AM 03/25/2022 Results for 6:53 AM CDT this procedure are in the results section. BASIC METABOLIC PANEL Early AM 03/25/2022 Result s for 6:53 AM CDT this procedure are in the results section. US THORACENTESIS RIGHT Routine 03/23/2022 Resul ts for 5:41 PM CDT this procedure are in the results section. XR CHEST 1 VIEW PA OR AP Routine 03/23/2022 Res ults for 5:40 PM CDT this procedure are in the results section. XR CHEST 2 VIEWS PA AND LATERAL Routine 03/23/2022 Results for 8:57 AM CDT this procedure are in the results section. CT BIOPSY BONE DEEP Routine 03/21/2022 Results for 4:52 PM CDT this procedure are in the results section. PATH FNA CYTOLOGY ASP CYTOLOGY Today 03/21/2022 Results for 4:15 PM CDT this procedure are in the results section. NM BONE SCAN WHOLE BODY Routine 03/21/2022 Resu lts for 10:58 AM CDT this procedure are in the results section. MR SPINE CERVICAL WWO Routine 03/20/2022 Result s for 7:32 PM CDT this procedure are in the results section. MR SPINE THORACIC WWO Routine 03/20/2022 Result s for 7:31 PM CDT this procedure are in the results section. MR SPINE LUMBAR WWO Routine 03/20/2022 Results for 7:31 PM CDT this procedure are in the results section. PROTIME-INR Today 03/20/2022 Results for 3:15 PM CDT this procedure are in the results section. US THORACENTESIS LEFT Routine 03/20/2022 Result s for 10:57 AM CDT this procedure are in the results section. XR CHEST 1 VIEW PA OR AP STAT 03/20/2022 Res ults for 10:54 AM CDT this procedure are in the results section. PATH NON DETECTIVE NARCOTICS AND VICE CYTOLOGY Today 03/20/2022 Result s for 10:30 AM CDT this procedure are in the results section. CWS PATH REVIEW BODY FLUID Timed 03/20/2022 R esults for 10:30 AM CDT this procedure are in the results section. LD,BODY FLUID Today 03/20/2022 Results for 10:30 AM CDT this procedure are in the results section. PH,BODY FLUID Routine 03/20/2022 Results for 10:30 AM CDT this procedure are in the results section. PROTEIN,BODY FLUID Today 03/20/2022 Results f or 10:30 AM CDT this procedure are in the results section. BODY FLUID CULTURE,STAIN Today 03/20/2022 Res ults for (AEROBIC) 10:30 AM CDT this procedure are in the results section. BODY FLUID CELL COUNT/DIF Routine 03/20/2022 Re sults for 10:30 AM CDT this procedure are in the results section. ECHO COMPLETE WO CONTRAST Today 03/20/2022 Re sults for 9:46 AM CDT this procedure are in the results section. URINALYSIS MICROSCOPIC Timed 03/20/2022 Resul ts for 8:12 AM CDT this procedure are in the results section. UA W/ SEDIMENT EXAM REFLEXED Today 03/20/2022 Results for PER CRITERIA 8:12 AM CDT this procedure are in the results section. PSA TOTAL (DIAGNOSTIC) Today 03/20/2022 Resul ts for 7:20 AM CDT this procedure are in the results section. CBC W PLT NO DIFF Today 03/20/2022 Results fo r 7:20 AM CDT this procedure are in the results section. HEPATIC FUNCTION PANEL Today 03/20/2022 Resul ts for 7:20 AM CDT this procedure are in the results section. BASIC METABOLIC PANEL Today 03/20/2022 Result s for 7:20 AM CDT this procedure are in the results section. SCAN-CT INTERPRETATION 03/19/2022 12:00 AM CDT SCAN-CT INTERPRETATION 03/19/2022 12:00 AM CDT RED CELL MORPHOLOGY Routine 03/10/2022 Cortical Results for 12:41 PM CDT age-related this cataract of both procedure a re eyes in the Blurred vision, results bilateral section. PLATELET ESTIMATE Routine 03/10/2022 Cortical Results fo r 12:41 PM CDT age-related this cataract of both procedure a re eyes in the Blurred vision, results bilateral section. MANUAL DIFFERENTIAL Routine 03/10/2022 Cortical Results for 12:41 PM CDT age-related this cataract of both procedure a re eyes in the Blurred vision, results bilateral section. CBC WITH AUTO DIFFERENTIAL Routine 03/10/2022 Cortical R esults for 12:41 PM CDT age-related this cataract of both procedure a re eyes in the Blurred vision, results bilateral section. COMP METABOLIC PANEL Routine 03/10/2022 Fatigue, Results for 12:41 PM CDT unspecified type this procedure are in the results section. PSA TOTAL SCREEN Routine 03/10/2022 Screening PSA Results fo r 12:41 PM CDT (prostate specific this antigen) procedure are in the results section. CBC WITH AUTO DIFFERENTIAL Routine 03/10/2022 Cortical R esults for 12:41 PM CDT age-related this cataract of both procedure a re eyes in the Blurred vision, results bilateral section. SCAN-EYE EXAM 02/27/2022 Results for 12:00 AM CDT this procedure are in the results section. from Last [address] HEAD BRAIN W (04/21/2022 9:25 AM CDT) Anatomical Region Laterality Modality HEAD, BRAIN Computed Tomography Specimen (Source) Anatomical Collection Method Collection Time Re ceived Time Location / / Volume Laterality 04/21/2022 11:16 AM CDT Narrative 04/21/2022 11:33 AM CDT For Patients: ??As a result of the Century Cures Act, medical imaging exams and procedure reports are released immediately into your electronic medical record. ??You may view this repo rt before your referring provider. ?? If you have questions, please contact doctors hospital care provider. Indication: Adenocarcinoma Technique: Noncontrasted CT Comparison: No comparison Findings: Generalized parenchymal. No acute intra cranial hemorrhage or mass. Hypoattenuated area in the right occipit al lobe most likely reflects a late subacute vs chronic infarction.No a cute extra-axial air fluid collections are seen. Diffuse sclerotic lesions throughout the bony skeleton this is suspicious for osseous metastatic disease. Fluid in the right mastoid air cells. Impression: 1. No acute intracranial hemorrhage or mass. 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 2. Diffuse sclerotic lesions throughout the calvarium likely reflecting widespread osseous metastatic disease. F luid in the right mastoid air cells. Please note that all CT scans at this [facility] use dose modulation, iterative reconstruction, and/or weight- based dosing when appropriate to reduce radiation dose to as low as reaso nably achievable. Dictated by Celia Shafer MD @ Oct ??3 2 022 11:16AM ?? Sandip Kirkpatrick MD CT PATH TISSUE EXAM (04/11/2022 10:20 AM CDT) Component Value Ref Test Analysis Performed Pathologis t Range Method Time At Signature Case Report Pathology Report ?Case: [id number] ? [facility] Authorizing Provider: ??Brent Gonsales, Collected: ? 04/11/2022 1020 ? 2 11:57 HEALTH ? MD ? AM CDT LABORATORY- Ordering Location: ? [facility] ?Received: ?04/11/2022 1145 ? [facility] ? LABORATORY Pathologist: ? Maxi Meyer, ? MD ? Specimens: ?? A) - Ulcer, GA STRIC ulcer ? B) - Muco sa, Gastric MUCOSA ? C) - Dist al Esophagus Biopsy ? Final A) STOMACH, BODY, GREATER CURVATURE, ULCER BIOPSY: [facility] Electronically Diagnosis 1. Helicobacter gastritis 2 11:57 HEAL TH signed by 2. Negative for atrophic gastritis AM CD T LABORATORY- [place], 3. Sampling: Antral and body mucosae [facility], 4. Negative for dysplasia and malignancy LABORATORY MD on 04/16/2022 at 11:57 A M B) STOMACH, BIOPSY: 1. Helicobacter gastritis 2. Negative for atrophic gastritis and dysplasia 3. Sampling: Antral and body mucosae C) ESOPHAGUS, DISTAL, BIOPSY: 1. Poorly differentiated adenocarcinoma, diffuse type 2. Background Mcfadden's mucosa: Absent 3. HER2 by IHC: Negative (1+ by manual morphometry) Comment A) Dr. Meyer relayed the se findings to Dr. Tobias on 04/14/2022. This case was seen in consultation with Dr. Gagnon. 0 [facility] 2 11:57 HEALTH Please contact us with any questions ([phone]). AM CDT LABORATORY- CENTRAL Best block for ancillary studies: C1 LABORATORY Clinical Mr. Montano is a 81 y.o. 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 The patient has a thickened esophagus on CT im [facility] Information aging. EGD reveals a thickened esophagus with gastric ulcer. 2 11:57 HEALTH AM CDT LABORATORY- Left pleural fluid cytology specimen ([id number]; date of collection 03/20/2022) was positive for metastatic adenocarcinoma suggestive of GI origin. [facility]AL LABORATORY Gross A) Received in formalin are 5 toscano mucosal fragments ranging from 3 mm to 5 mm in greatest dimension, which are entirely submitted in one cassette. It is labeled with the patient's name and designated gastric ulcer. [facility] Description 2 11:57 HEALTH B) Received in formalin are 5 toscano mucosal fragments ranging from 2 mm to 5 mm in greatest dimension, which are entirely submitted in one cassette. It is labeled with the patient's name and designated gastric mucosa. AM CDT LABORATORY- CENTRAL C) Received in formalin are 5 toscano mucosal fragments ranging from 4 mm to 7 mm in greatest dimension, which are entirely submitted in one cassette. It is labeled with the patient's name and designated distal esophagus biopsy. LABORATORY Willy Anguiano 04/11/2022 6:23 PM Microscopic The final diagnosis is based on microscopic examination of appropriate sections of all specimens. [facility] Description 2 11:57 HEALTH Immunohistochemistry was per formed on block A1 and interpreted with following results: AM CDT LABORATORY- Keratin AE1/AE3: Negative for infiltrating tumor cells CENTRAL LABORATORY Immunohistochemistry was per formed on block C1 and interpreted with the following results: Cytokeratin 7: Positive Cytokeratin 20: Positive, patchy CDX2: Positive SYNOPTIC Gastric HER2 Biomarker Reporting Template [facility] REPORTING Stomach.HER2.Bmk - All Specimens 2 11:57 HEALTH Protocol posted: 09/15/2018 AM CDT LAB ORATORY- CENTRAL GASTRIC HER2 BIOMARKER TESTS L ABORATORY ?? Test(s) Performed: ? HER2 by IHC: ? Results: ?Negative (Score 1+) ? HER2 (protein expr ession by immunohistochemistry): ?Food and Drug Administration (FDA) cleared (test / vendor): [place] ? Primary Antibody: ?4B5 Additional [facility] Information Interpreted at [facility], Central Laboratory - [address], [place] [address] 2 11:57 HEALTH AM CDT LABORATORY- CENTRAL LABORATORY Specimen (Source) Anatomical Collection Method Collection Time Re ceived Time Location / / Volume Laterality Tissue SPECIMEN FROM 04/11/2022 10:20 04/11/2022 ULCER / Unknown AM CDT 11:45 AM CDT Tissue specimen 04/11/2022 10:22 04/11/20 22 (specimen) AM CDT 11:45 AM CDT (Mucosa) Tissue specimen 04/11/2022 10:31 04/11/20 22 (specimen) AM CDT 11:45 AM CDT (Distal Esophagus Biopsy) Brent Tobias MD PATHOLOGY/CYTOLOGY Performing Organization Address City/State/ZIP Code Phon e Number [facility] [address] [place] [address] LABORATORY-CENTRAL 2000 LABORATORY ENDOSCOPY (04/11/2022 9:46 AM CDT) Specimen (Source) Anatomical Collection Method Collection Time Re ceived Time Location / / Volume Laterality 04/11/2022 9:46 AM CDT Narrative This result has an attachment that is no t available. Transcriptions Brent Tobias MD - 04/11/20 12:04 PM CDT [facility] Patient Name: Sandip Bend Procedure Da te: 04/11/2022 Gender: Male Date of : 1940 Admit Type: Ambulatory Procedure: Upper GI endoscopy Proceduralist: Shasha Hyman - [facility] [place] [address] [facility] [address] [place] [address] Referring MD: Brent Tobias MD Indications/Pre-Op Diagnosis: metastatic adenocarcinoma (bone, pleural space) with immunochemistry suggestive of gi p rimary. thickened esophagus on CT scan. Medications: Monitored Anesthesia Care Procedure Description: Risk of bleeding, infection, perforatio n, need for surgery and alternatives discussed. The endosocpe [id number] was intr oduced through the mouth, and advanced to the fourth part of duodenum . Risk of bleeding, infection, perforation, need for surgery and alter natives discussed. The upper GI endoscopy was accomplished without difficulty. The patient tolerated the procedure well. Complications: No immediate complication s. Estimated Blood Loss & Specimen: Estimated blood loss was minimal. Specimen collected: Yes and sent to Lab oratory Findings: The esophagus was normal to the distal 1/3, where the mucosa was intact, but the wall was thickened and poorly d istensible, suggestive of submucosal process. Biopsies taken with cold forceps. A 3 cm hiatal hernia was seen. A 3 cm chronic appearing ulcer was seen in the body along the greater curvature. This was biopsied with cold forceps. The uninvolved gastric mucosa was biopsied as well (2x antrum, 1x incisura, 2x body). The examined duodenum was normal. 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 Thickened esophagus and gastric ulcer, biopsied as above. Recommendation: - Discharge patient to home. - Resume diet. - Follow up with Dr. Lorenzana (Oncology) as scheduled. Brent Tobias MD 04/11/2022 12:04:29 PM This report has been signed electronical ly. Note Initiated On: 04/11/2022 9:46 AM Brent Tobias MD PROCEDURE ORD XR CHEST 2 VIEWS PA AND LATERAL (04/09/2022 1:55 PM CDT)Only the most recent of3 resultswithin the time period is included. Anatomical Region Laterality Modality CHEST, THORAX, Lung, HEART Computed Radi ography Specimen (Source) Anatomical Collection Method Collection Time Re ceived Time Location / / Volume Laterality 04/09/2022 2:17 PM CDT Impressions 04/09/2022 2:17 PM CDT Similar small pleural effusions, left greater than right. Dictated by Jesús Holley MD @ Apr 09 2 022 ??2:17PM (Electronically Signed) ?? Narrative 04/09/2022 2:17 PM CDT For Patients: ??As a result of the Cures Act, medical imaging exams and procedure report s are released immediately into your [employer] medical record. ??You may view this report before your referring provider. ??If you have questions, please contact your health care provider. INDICATION: Follow-up effusions TECHNIQUE: Chest 2 views COMPARISON: 03/27/2022 FINDINGS: Small bilateral pleural effusions, left greater than right, are similar. Mediastinum unchanged. Coarsening of the interstitium is again noted. Widespread osseous metastatic disease is unchanged. Postop changes right upper quadrant. Procedure Note Jesús Holley MD - 04/09/2022For matting of this note might be different from the original. For Patients: As a result of the Cures Act, medical imaging exams and procedure reports are released immediately into your electronic medical record. You may view this report before your referring provider. If you have questions, please contact yo health care provider. INDICATION: Follow-up effusions TECHNIQUE: Chest 2 views COMPARISON: 03/27/2022 FINDINGS: Small bilateral pleural effusions, left greater than right, are similar. Mediastinum unchanged. Coarsening of the interstitium is again noted. Widespread osseous metastatic disease is unchanged. Postop changes right upper quadrant. IMPRESSION: Similar small pleural effusions, left gr eater than right. Dictated by Jesús Holley MD @ Apr 09 2 022 2:17PM (Electronically Signed) Sandip Kirkpatrick MD GENERAL IMAGING COVID 19 (04/09/2022 1:13 PM CDT) Analysis Performed At Patho logist Time Signature COVID 19 Negative Negative 04/10/2022 [facility] 2:08 PM CDT LABORATORY-[facility] MOLECULAR TRAL LABORATORY Comment: All PCR tests are subject to fa lse negative result due to variability in viral load and collection technique. A n egative result does not rule out a SARS-CoV-2 infection. Clinical correlation required . Specimen Anatomical Location / Collection Method Collection Cheo e Received Time (Source) Laterality / Volume Other SPECIMEN FROM Non-Blood / 04/09/2022 1:13 04/09/2022 8:37 NASOPHARYNGEAL Unknown PM CDT PM CDT STRUCTURE / Unknown Narrative [facility] LABORATORY-CENTRAL LABORAT ORY - 04/10/2022 2:08 PM CDT This test has been authorized by FDA und er an Emergency Use Authorization (EUA). This test is only authorized for the duration of time the declaration that circumstances exist justifying the authorization of th e emergency use of in vitro diagnostic tests for detection of SARS-CoV-2 virus and/or diagnosis of COVID-19 infection under section 564(b)(1) of the Act, 21 U.S.C. 360bbb-3(b)(1), unless the authorization is terminated or revoked sooner. Sandip Kirkpatrick MD MICROBIOLOGY Performing Organization Address City/State/ZIP Code Phon e Number [facility] [address] [place] [address] LABORATORY-CENTRAL 2000 LABORATORY COVID 19 COLLECTION (04/09/2022 1:13 PM CDT) [facility] Method Time Signature TESTING [facility] 04/09/2022 [facility] LABORATORY Laboratory 8:37 PM CDT LABORATORY-CE NTRAL LABORATORY Comment: Specimen submitted to [facility] for testing. Specimen Anatomical Location / Collection Method Collection Cheo e Received Time (Source) Laterality / Volume Other SPECIMEN FROM Non-Blood / 04/09/2022 1:13 04/09/2022 1:41 NASOPHARYNGEAL Unknown PM CDT PM CDT STRUCTURE / Unknown Sandip Kirkpatrick MD SEND OUTS Performing Organization Address City/State/ZIP Code Phon e Number [facility] [address] [place] [address] LABORATORY-CENTRAL 2000 LABORATORY SCAN CORRESP-LABORATORY RESULTS (04/01/2022 12:00 AM CDT) Narrative 04/01/2022 12:00 AM CDT This result has an attachment that is no t available. Ordered by an unspecified provider. Other Clinical Staff OTHER SCAN CORRESP-IMAGING (04/01/2022 12:00 AM CDT)Only the most recent of2 results within the time period is included. Narrative 04/01/2022 12:00 AM CDT This result has an attachment that is no t available. Ordered by an unspecified provider. Other Clinical Staff OTHER (ABNORMAL) CBC WITH AUTO DIFFERENTIAL (03/27/2022 4:18 PM CDT)Only the most recent of2 resultswithin the time period is included. [facility] Method Time Signature WHITE BLOOD 8.6 4.5 - 11.0 03/27/2022 [facility] COUNT thou/cu mm 4:48 PM CDT [facility] RED BLOOD COUNT 3.79 (L) 4.30 - 03/27/2022 [facility] 5.90 4:48 PM CDT [place] mil/cu mm CLINIC HEMOGLOBIN 12.4 (L) 13.5 - 03/27/2022 [facility] 17.5 g/dL 4:48 PM CDT [facility] HEMATOCRIT 37.3 37.0 - 03/27/2022 [facility] 53.0 % 4:48 PM CDT [facility] MCV 98 80 - 100 03/27/2022 [facility] fL 4:48 PM CDT [facility] MCH 32.7 26.0 - 03/27/2022 [facility] Lexara 34.0 pg 4:48 PM CDT [facility] MCHC 33.2 32.0 - 03/27/2022 [facility] 36.0 g/dL 4:48 PM CDT [facility] RDW 14.5 11.5 - 03/27/2022 [facility] [place] 15.5 % 4:48 PM CDT [facility] PLATELET COUNT 234 140 - 440 03/27/2022 [facility] thou/cu mm 4:48 PM CDT [facility] MPV 9.3 6.5 - 11.0 03/27/2022 [facility] fL 4:48 PM CDT [facility] Specimen Anatomical Collection Method / Collection Time Recei jennifer Time (Source) Location / Volume Laterality Blood BLOOD SPECIMEN / Venipuncture / 03/27/2022 4:18 2021 4:19 Unknown Unknown PM CDT PM CDT Sandip Kirkpatrick MD HEMATOLOGY Performing Organization Address City/State/ZIP Code Phon e Number [facility] [address] [place] [address] RED CELL MORPHOLOGY (03/27/2022 4:18 PM CDT)Only the most recent of2 results within the time period is included. [facility] [employer] Method Time Signature RBC COMMENT RBC RBC 03/27/2022 [facility] morphology morphology 4:47 PM CDT [facility] normal normal, RBC morphology within normal limits for newborns. Specimen Anatomical Collection Method / Collection Time Recei jennifer Time (Source) Location / Volume Laterality Blood BLOOD SPECIMEN / Venipuncture / 03/27/2022 4:18 2021 4:19 Unknown Unknown PM CDT PM CDT Sandip Kirkpatrick MD HEMATOLOGY Performing Organization Address City/[facility]/ZIP Code Phon e Number [facility] [address] [place] [address] PLATELET ESTIMATE (03/27/2022 4:18 PM CDT)Only the most recent of2 resultswithin the time period is included. [facility] [facility] Method Time Signature PLATELET Adequate Adequate, No 03/27/2022 [facility] ESTIMATE estimate 4:47 PM T [facility] Specimen Anatomical Collection Method / Collection Time Recei jennifer Time (Source) Location / Volume Laterality Blood BLOOD SPECIMEN / Venipuncture / 03/27/2022 4:18 2021 4:19 Unknown Unknown PM CDT PM CDT Sandip Kirkpatrick MD HEMATOLOGY Performing Organization Address City/State/ZIP Code Phon e Number [facility] [address] [place] [address] (ABNORMAL) MANUAL DIFFERENTIAL (03/27/2022 4:18 PM CDT)Only the most recent of2 resultswithin the time period is included. [facility] gist Method Time Signature % NEUTROPHILS 63.0 % 03/27/2022 [facility] 4:47 PM CDT [facility] % LYMPHOCYTES 19.0 % 03/27/2022 [facility] 4:47 PM CDT [facility] % MONOCYTES 12.0 % 03/27/2022 [facility] 4:47 PM CDT [facility] % EOSINOPHILS 6.0 % 03/27/2022 [facility] 4:47 PM CDT [facility] % BASOPHILS 0.0 % 03/27/2022 [facility] 4:47 PM CDT [facility] NEUTROPHILS 5.4 1.7 - 7.0 03/27/2022 [facility] ABSOLUTE thou/cu mm 4:47 PM CDT [facility] LYMPHOCYTES 1.6 0.9 - 2.9 03/27/2022 [facility] ABSOLUTE thou/cu mm 4:47 PM CDT [facility] MONOCYTES 1.0 (H) <0.9 03/27/2022 [facility] ABSOLUTE thou/cu mm 4:47 PM CDT [facility] EOSINOPHILS 0.5 (H) <0.5 03/27/2022 [facility] ABSOLUTE thou/cu mm 4:47 PM CDT [facility] BASOPHILS 0.0 <0.3 03/27/2022 [facility] ABSOLUTE thou/cu mm 4:47 PM CDT [facility] Specimen Anatomical Collection Method / Collection Time Recei jennifer Time (Source) Location / Volume Laterality Blood BLOOD SPECIMEN / Venipuncture / 03/27/2022 4:18 2021 4:19 Unknown Unknown PM CDT PM CDT Sandip Kirkpatrick MD HEMATOLOGY Performing Organization Address City/State/ZIP Code Phon e Number [facility] [address] [place] [address] (ABNORMAL) BASIC METABOLIC PANEL (03/27/2022 4:18 PM CDT)Only the most recent of 3 resultswithin the time period is included. Analysis Performed At [facility] Time Signature SODIUM 141 135 - 145 03/28/2022 [facility] mmol/L 5:03 PM CDT LABORATORY-[facility] TRAL LABORATORY POTASSIUM 4.0 3.5 - 5.0 03/28/2022 [facility] mmol/L 5:03 PM CDT LABORATORY-[facility] TRAL LABORATORY CHLORIDE 107 98 - 110 03/28/2022 [facility] mmol/L 5:03 PM CDT LABORATORY-[facility] TR[facility] LABORATORY CO2,TOTAL 25 21 - 31 03/28/2022 [facility] mmol/L 5:03 PM CDT LABORATORY-[facility] TRAL LABORATORY ANION GAP 9 5 - 18 03/28/2022 [facility] 5:03 PM CDT LABORATORY-[facility] TRAL LABORATORY GLUCOSE 92 65 - 100 03/28/2022 [facility] Lexara mg/dL 5:03 PM CDT LABORATORY-[facility] TRAL LABORATORY CALCIUM 7.8 (L) 8.5 - 10.5 03/28/2022 [facility] mg/dL 5:03 PM CDT LABORATORY-[facility] TR[facility] LABORATORY BUN 16 8 - 25 03/28/2022 [facility] mg/dL 5:03 PM CDT LABORATORY-[facility] TR[facility] LABORATORY CREATININE 1.03 0.72 - 03/28/2022 [facility] 1.25 mg/dL 5:03 PM CDT LABORATORY-[facility] TRAL LABORATORY BUN/CREAT RATIO 16 10 - 20 03/28/2022 [facility] 5:03 PM CDT LABORATORY-[facility] TRAL LABORATORY eGFR 74 (L) >90 03/28/2022 [facility] mL/min/1.7 5:03 PM CDT LABORATORY-JAD 3m2 TRAL LABORATORY Comment: As of 2021, eGFR is calcu lated by the CKD-EPI creatinine equation without race adjustment. eGFR can be inf luenced by muscle mass, exercise, and diet. The reported eGFR is an estimation only and is only applicable if the renal function is stable. Specimen Anatomical Collection Method / Collection Time Recei jennifer Time (Source) Location / Volume Laterality Blood BLOOD SPECIMEN / Venipuncture / 03/27/2022 4:18 2021 4:19 Unknown Unknown PM CDT PM CDT Sandip Kirkpatrick MD CHEMISTRY Performing Organization Address City/State/ZIP Code Phon e Number [facility] [address] [place] [address] LABORATORY-CENTRAL 1999 LABORATORY XR CHEST 1 VIEW PORTABLE (03/25/2022 12:37 PM CDT) Anatomical Region Laterality Modality HEART, THORAX, CHEST Digital Radiography Specimen (Source) Anatomical Collection Method Collection Time Re ceived Time Location / / Volume Laterality 03/25/2022 12:47 PM CDT Narrative 03/25/2022 12:47 PM CDT For Patients: ??As a result of the Cures Act, medical imaging exams and procedure report s are released immediately into your [employer] medical record. ??You may view this report before your referring provider. ??If you have questions, please contact your health care provider. INDICATION: Shortness of breath. Comparison: Chest radiograph 03/23/2022 TECHNIQUE: Portable AP chest. FINDINGS: Bilateral pleural effusion increasing wh en compared to the previous study. Pulmonary congestion. Diffuse sclerotic skeletal metastases. Dictated by Moy Perla MD @ Sep ??2021 12:47PM (Electronically Signed) ?? Procedure Note Moy Perla MBBS - 03/25/2022For matting of this note might be different from the original. For Patients: As a result of the Cures Act, medical imaging exams and procedure reports are released immediately into your electronic medical record. You may view this report before your referring provider. If you have questions, please contact [facility] health care provider. INDICATION: Shortness of breath. Comparison: Chest radiograph 03/23/2022 TECHNIQUE: Portable AP chest. FINDINGS: Bilateral pleural effusion increasing wh en compared to the previous study. Pulmonary congestion. Diffuse sclerotic skeletal metastases. Dictated by Moy Perla MD @ Sep 2021 12:47PM (Electronically Signed) Kimberly RING GENERAL IMAGING (ABNORMAL) HEMOGLOBIN (03/25/2022 6:53 AM CDT) P athologist Signature HEMOGLOBIN 12.7 (L) 13.5 - 03/25/2022 [facility] 17.5 g/dL 7:37 AM CDT LABORATORY-[facility] MCV 98 80 - 100 03/25/2022 [facility] fL 7:37 AM CDT LABORATORY[facility] Specimen Anatomical Collection Method / Collection Time Recei jennifer Time (Source) Location / Volume Laterality Blood BLOOD SPECIMEN / Venipuncture / 03/25/2022 6:53 2021 7:32 Unknown Unknown AM CDT AM CDT Kimberly Reynolds MBBS HEMATOLOGY Performing Organization Address City/State/ZIP Code Phon e Number [facility] [address] [place] [address] LABORATORY-CENTRAL 2000 LABORATORY US THORACENTESIS RIGHT (03/23/2022 5:41 PM CDT) Anatomical Region Laterality Modality CHEST, THORAX Ultrasound Specimen (Source) Anatomical Location Collection Method / Collectio n Time Received Time / Laterality Volume Narrative 03/23/2022 6:26 PM CDT ULTRASOUND-GUIDED THORACENTESIS, right CLINICAL HISTORY: ??Pleural effusion. FINDINGS: ??After obtaining informed con sent, using ultrasound guidance, local anesthesia, sterile technique, and a 19 gauge sheathed needle, the right ??posterior pleural space was punc tured and 1200 cc of clear red fluid were aspirated. ??The patient angélica rated the procedure well without immediate complication. CONCLUSION: ??Uneventful ultrasound-guid ed thoracentesis. CODES: [id number], [id number] Jeff Glez MD US XR CHEST 1 VIEW PA OR AP (03/23/2022 5:40 PM CDT)Only the most recent of2 resultswithin the time period is included. Anatomical Region Laterality Modality CHEST, THORAX, Lung, HEART Digital Radio graphy Specimen (Source) Anatomical Collection Method Collection Time Re ceived Time Location / / Volume Laterality 03/23/2022 5:57 PM CDT Addenda Addendum by Jesús Holley MD on 03/23/2022 6:02 PM CDT Called to Dr. Glez at [id number] 9.4.22. Impressions 03/23/2022 5:57 PM CDT Decreased right pleural effusion status post right-sided thoracentesis. Tiny right apical pneumothorax related t o incomplete re-expansion of the right lung apex. Dictated by Jesús Holley MD @ Sep ??4 2021 ??5:57PM (Electronically Signed) ?? Narrative 03/23/2022 5:57 PM CDT For Patients: ??As a result of the Cures Act, medical imaging exams and procedure reports are released immediately into your electronic medical record. ??You may view this repo rt before your referring provider. ?? If you have questions, please contact [facility] health care provider. INDICATION: Post thoracentesis TECHNIQUE: Chest 1 view COMPARISON: 03/23/2022 FINDINGS: Decreased right pleural effusion. Left p leural effusion again noted. Chronic areas of scarring bilaterally. A tiny right apical pneumothorax is present related to incomplete expansion of the right lung apex. No mediastinal shift. Chronic changes to os seous structures with multifocal areas of sclerosis. Jeff Glez MD GENERAL IMAGING CT BIOPSY BONE DEEP (03/21/2022 4:52 PM CDT) Anatomical Region Laterality Modality Computed Tomography, Other Specimen (Source) Anatomical Location Collection Method / Collectio n Time Received Time / Laterality Volume Narrative 03/21/2022 5:17 PM CDT 03/21/2022 Sandip Henry Charmaine [id number] INDICATIONS: Bone metastases. PROCEDURE PERFORMED: ??CT guided biopsy of the right iliac bone. ?? FINDINGS (DESCRIPTION OF EACH PROCEDURE) : ??CT guided biopsy of the right iliac bone. POST-PROCEDURE DIAGNOSIS: ??Status post CT guided biopsy of the right iliac bone. PATIENT POSITION: prone ANTISEPTIC PREPARATION and BARRIER TECHN IQUES USED: ??skin was prepped and draped in the usual sterile fashion IMAGING GUIDANCE FOR ACCESS / PROCEDURE: ??CT ?? ACCESS LOCATION / SITE / TECHNIQUE: ??Ri ght posterior iliac bone. EQUIPMENT UTILIZED: 11g bone biopsy jasmine ce. CLOSURE: ??none RADIATION DOSE: ?? total exam DLP: ??258 mGy-cm MEDICATIONS GIVEN: ??versed 1 mg IV and fentanyl 100 mcg IV. ??Lidocaine for local anesthesia. SPECIMEN(S): 11g core biopsy x 2. COMPLICATIONS: no complications noted DRAINS: ??None ?? ESTIMATED BLOOD LOSS: ??Less than 10 cc. PHYSICIAN(S) AND ASSISTANTS (if any): ?? Americo Shafer MD Additional Comments: Please call with questions. Americo bond MD [place] Protocol A. Pre-procedure verification complete y es 1-relevant information / documentation a vailable, reviewed and properly matched to the patient; 2-consent accura te and complete, 3-equipment and supplies available B. Site marking complete Yes Site marked if not in continuous attenda nce with patient C. TIME OUT completed yes Time Out was conducted just prior to sta rting procedure to verify the eight required elements: 1-patient ident ity, 2-consent accurate and complete, 3-position, 4-correct side/sit e marked (if applicable), 5-procedure, 6-relevant images / results properly labeled and displayed (if applicable), 7-antibiotics / irrigat ion fluids (if applicable), 8-safety precautions. Jeff Glez MD CT PATH [facility]NA CYTOLOGY ASP CYTOLOGY (03/21/2022 4:15 PM CDT) Component Value Ref Test Analysis Performed Pathologis t Range Method Time At Signature Case Report Medical Cytology Report ? Case: [id number] ? 03/25/2022 [facility] Authorizing Provider: ??Americo Peace MD ? Collected: ? 03/21/2022 1615 ? 3:54 PM HEALTH Ordering Location: ? [facility] ?Received: ?03/21/2022 1657 ? CDT [facility]- ? Hospital ? CENTRAL Pathologist: ? [address] ? LABORATORY ? MD Song ? Specimen: ?Bone Biopsy, Right Iliac Bone ? Final BONE, RIGHT ILIAC, LESION, CT-GUIDED CORE BIOPSY WITH TOUCH IMPRINTS: 03/25/2022 [facility] Electronically Diagnosis 1. Positive for metastatic carcinoma 3:5 4 PM HEALTH signed by 2. See comment CDT LABORATORY- [address] Leal ANCHOR ATIF Whittington MD on 03/25 at 3:54 PM Comment Although the immunohistochem ical staining profile is not the same as the pleural fluid specimen ([id number]), this bone biopsy underwent decalcification. Tumor cells are morphologically similar in appea 03/25 [facility] salazar and the processes are likely the same. Please co rrelate clinically. 3:54 PM HEALTH CDT LABORATORY- Case seen in consultation with Dr. Medrano. CENTRAL LABORATORY Clinical Mr. Montano is a 81 03/25/2022 [facility] Information y.o. with a positive 3:54 PM HEALTH pleural fluid (see CDT LABORATORY- [id number]). CENTRAL LABORATORY Gross 03/25/2022 [facility] Description A) Received identified as R ight iliac is a radiologic guided biopsy specimen. 3:54 PM HEALTH CDT LABORATORY- The core biopsy sampling measures 0.3 cm x 0.4 cm in aggrega te. CENTRAL LABORATORY The specimen consists of: ? -2 Air dried slides ? -1 Formalin vial ? -0 RPMI vials The following were prepared from the specimen submitted: ? -2 Diff-Quik stained slides ? -1 H&E stained cell block slide The biopsy material is entirely submitted in 1 cassette. A2 Cell block material was r emoved from the patient and placed directly in formalin at 1640 on 03/21/22 and fixed in formalin at least 6 hours and no more than 72 hours.The cell block was decalcified. Adequacy A) Ben assessed 03/25/2022 [facility] Assessment adequacy from the 3:54 PM HEALTH air-dried smears at CDT LABORATORY - the time of the CENTRAL procedure with an LABORATORY impression of Not Adequate. Microscopic Specimen adequacy: Adequate for interpretation. 03/25/2022 [facility] Description 3:54 PM HEALTH All slides were reviewed. Th e microscopic appearance substantiates the diagnosis. T LABORATORY- CENTRAL Immunostains were performed using block A2 with results as follows: LABORATORY Cytokeratin Cocktail: Positive Cytokeratin 7: Positive, focal Cytokeratin 20: Negative NKX3.1-FL: Negative Additional Cytology is screened at [facility], Central Laboratory - [address], [place] [address] and [facility] - [address], [place] [address] [address] 03/25/2022 [facility] - [address] [facility] [place] [address] 3:54 PM HEALTH CDT LABORATORY- Interpreted at [facility], Central Laboratory - [address], [place] [address] CENTRAL LABORATORY Specimen Anatomical Collection Method Collection Time Receive d Time (Source) Location / / Volume Laterality Aspirate (Bone 03/21/2022 4:15 PM 022 4:57 Biopsy) CDT PM CDT Americo Shafer MD PATHOLOGY/CYTOLOGY Performing Organization Address City/State/ZIP Code Phon e Number [facility] [address] [place] [address] LABORATORY-CENTRAL 2000 LABORATORY [place] BONE SCAN WHOLE BODY (03/21/2022 10:58 AM CDT) Anatomical Region Laterality Modality SKELETON Nuclear Medicine Specimen (Source) Anatomical Collection Method Collection Time Re ceived Time Location / / Volume Laterality 03/21/2022 12:24 PM CDT Impressions 03/21/2022 12:24 PM CDT There are findings suspicious for diffuse skeletal metastases. Dictated by Brannon West MD @ Sep ?? 2 2021 12:24PM (Electronically Signed) ?? Narrative 03/21/2022 12:24 PM CDT For Patients: ??As a result of the Cures Act, medical imaging exams and procedure report s are released immediately into your [facility] record. ??You may view this report before your referring provider. ??If you have questions, please contact your health care provider. HISTORY: 81-year-old male. Cancer of unknown prim tobi. Staging. Unintended weight loss. The recent lumbar spine MRI scan of 03/20/2022 reportedly demonstrated diffusely abnormal marrow, presumably from widespread skeletal malignancy. TECHNIQUE: 27.5 millicuries of [id number] w as injected intravenously. 3 hour delayed whole body images were obtained in the anterior and posterior projections. COMPARISON: Lumbar spine MRI scan of 03/20/2022. FINDINGS: There is good uptake of activity by the skeleton. The skeleton has a diffusely inhomogeneo us appearance, predominating in the axial and proximal appendicular skeleton. There is scattered small areas of increased uptake and overall moderate moderately i nhomogeneous uptake. These findings are suspicious for multiple skeletal metastases. Also noted are benign-appearing arthriti c changes. Compared to the 03/20/2022 lumbar spine MRI scan, there has been no significant change. Procedure Note Brannon West MD - 03/21/2022 For Patients: As a result of the Cures Act, medical imaging exams and procedure reports are released immediately into your electronic medical record. You may view this report before your referring provider. If you have questions, please contact yo health care provider. HISTORY: 81-year-old male. Cancer of unknown prim tobi. Staging. Unintended weight loss. The recent lumbar spine MRI scan of 03/20/2022 reportedly demonstrated diffusely abnormal marrow, presumably from widespread skeletal malignancy. TECHNIQUE: 27.5 millicuries of [id number] w as injected intravenously. 3 hour delayed whole body images were obtained in the anterior and posterior projections. COMPARISON: Lumbar spine MRI scan of 03/20/2022. FINDINGS: There is good uptake of activity by the skeleton. The skeleton has a diffusely inhomogeneo us appearance, predominating in the axial and proximal appendicular skeleton. There is scattered small areas of increased uptake and overall moderate moderately inhomogeneous uptake. These findings are suspicious fo r multiple skeletal metastases. Also noted are benign-appearing arthriti c changes. Compared to the 03/20/2022 lumbar spine MRI scan, there has been no significant change. IMPRESSION: There are findings suspicious for diffus e skeletal metastases. Dictated by Brannon West MD @ Mar 21 2022 12:24PM (Electronically Signed) Jackie Lowery TECHNICAL COORDINATOR NM MR SPINE CERVICAL W/WO CONTRAST (03/20/2022 7:32 PM CDT) Anatomical Region Laterality Modality Spine, CERVICAL SPINE Magnetic Resonance Specimen (Source) Anatomical Collection Method Collection Time Re ceived Time Location / / Volume Laterality 03/21/2022 8:11 AM CDT Narrative 03/21/2022 8:11 AM CDT For Patients: ??As a result of the Cures Act, medical imaging exams and procedure report s are released immediately into your [facility] medical record. ??You may view this report before your referring provider. ??If you have questions, please contact your health care provider. Indication: Cancer of unknown primary. Staging exam. Technique: T2, T1 and STIR sagittal as well as grad ient echo axial sequences were obtained. Post gadolinium T1 imaging is also acqui red. Contrast: 7.5 mL Gadavist. Comparison: None available. Findings: Exaggerated cervical lordosis and upper thoracic kyphosis. There is diffusely decreased marrow T1 s ignal which can be seen with anemias and marrow packing disorders. Widespread advanced facet osteoarthritis , most pronounced and severe on the right at C4-5, C5-6 and C6-7. Abnormal marrow signal and enhancement is seen in the right lateral mass of C6, presumably react solange although technically indeterminate; this could be evaluated over time with a repeat MRI exam. Disc degenerative changes, severe at C3- 4 and moderately severe at C6-7. Multilevel mild to moderate foraminal na rrowing. No fracture is definitively identified. No high grade central canal stenosis. No spinal cord signal abnormalities are identified. No abnormal intradural IV gadolinium enhancement. No gross paraspinal pathology is identif ied. Impression: 1. Diffusely decreased T1 signal in the marrow of the cervical spine. This is suspicious for marrow replacement disorder. 2. Increased marrow signal and enhanceme nt is seen in the right lateral mass of C6, presumably reactive but technically indeterminate. Reactive marrow T2 signal change is also seen in the right lateral masses of C4 and C5. 3. Widespread prominent facet osteoarthr itis. Advanced disc degenerative changes at C2-3 and C6-7. Multilevel low-grade foraminal narrowing. 4. No evidence for intrinsic pathology, theodore extrinsic compression or pathologic IV gadolinium enhancement involving the cervical spinal cord. Dictated by Denis Perkins MD @ 03/21/20 8:11:38 AM (Electronically Signed) Procedure Note Denis Perkins MD - 2 For Patients: As a result of the ntury Cures Act, medical imaging exams and procedure reports are released immediately into your electronic medical record. You may view this report before your referring provider. If you have questions, please contact [facility]. Indication: Cancer of unknown primary. Staging exam. Technique: T2, T1 and STIR sagittal as well as grad ient echo axial sequences were obtained. Post gadolinium T1 imaging is also acqui red. Contrast: 7.5 mL Gadavist. Comparison: None available. Findings: Exaggerated cervical lordosis and upper thoracic kyphosis. There is diffusely decreased marrow T1 s ignal which can be seen with anemias and marrow packing disorders. Widespread advanced facet osteoarthritis , most pronounced and severe on the right at C4-5, C5-6 and C6-7. Abnormal marrow signal and enhancement is seen in the right lateral mass of C6, presumably reactive although technically indeterminate; this could be evaluated over time with a repeat MRI exam. Disc degenerative changes, severe at C3- 4 and moderately severe at C6-7. Multilevel mild to moderate foraminal na rrowing. No fracture is definitively identified. No high grade central canal stenosis. No spinal cord signal abnormalities are identified. No abnormal intradural IV gadolinium enhancement. No gross paraspinal pathology is identif ied. Impression: 1. Diffusely decreased T1 signal in the marrow of the cervical spine. This is suspicious for marrow replacement disorder. 2. Increased marrow signal and enhanceme nt is seen in the right lateral mass of C6, presumably reactive but technically indeterminate. Reactive marrow T2 signal change is also seen in the right lateral masses of C4 and C5. 3. Widespread prominent facet osteoarthr itis. Advanced disc degenerative changes at C2-3 and C6-7. Multilevel low-grade foraminal narrowing. 4. No evidence for intrinsic pathology, theodore extrinsic compression or pathologic IV gadolinium enhancement involving the cervical spinal cord. Dictated by Denis Perkins MD @ 03/21/20 8:11:38 AM (Electronically Signed) Jackie Lowery TECHNICAL COORDINATOR MR MR SPINE THORACIC W/WO CONTRAST (03/20/2022 7:31 PM CDT) Anatomical Region Laterality Modality Spine, THORACIC SPINE Magnetic Resonance Specimen (Source) Anatomical Collection Method Collection Time Re ceived Time Location / / Volume Laterality 03/21/2022 8:19 AM CDT Narrative 03/21/2022 8:19 AM CDT For Patients: ??As a result of the Cures Act, medical imaging exams and procedure report s are released immediately into your [facility] medical record. ??You may view this report before your referring provider. ??If you have questions, please contact your health care provider. Indication: Mid back pain. Bone lesion. Suspect camacho gnancy. Technique: T2, T1, and STIR sagittal as well as gra dient echo axial sequences were obtained. Post gadolinium T1 imaging is also acqui red. Contrast: 7.5 cc Gadavist. Comparison: None available. Findings: Diffusely abnormal marrow with generaliz ed decreased T1 signal and heterogeneous gadolinium enhancement. Consider widespread sclerotic metastatic disease or a myeloproliferative disorder. Moderately exaggerated mid thoracic kyph osis with slight chronic loss of anterior vertebral body height at several levels. No recent thoracic fracture identified. Multilevel low-grade disc degenerative c hanges. No thoracic disc herniations are identified. The central canal is widely patent. No intrinsic thoracic cord abnormalities identified. No abnormal intradural IV gadolinium enhancement. The thoracic neural foramina are patent. Sizable bilateral pleural fluid collecti ons noted. Impression: 1. Diffusely abnormal marrow. The chief diagnostic possibilities would include sclerotic metastatic disease or a myeloproliferative disorder. 2. Normal appearing thoracic cord. No pr esent compromise of the thoracic spinal canal. 3. Multilevel low-grade disc degenerativ e changes. Dictated by Denis Perkins MD @ 03/21/20 8:19:42 AM (Electronically Signed) Procedure Note Denis Perkins MD - 2 For Patients: As a result of the Cures Act, medical imaging exams and procedure reports are released immediately into your electronic medical record. You may view this report before your referring provider. If you have questions, please contact [facility] health care provider. Indication: Mid back pain. Bone lesion. Suspect camacho gnancy. Technique: T2, T1, and STIR sagittal as well as gra dient echo axial sequences were obtained. Post gadolinium T1 imaging is also acqui red. Contrast: 7.5 cc Gadavist. Comparison: None available. Findings: Diffusely abnormal marrow with generaliz ed decreased T1 signal and heterogeneous gadolinium enhancement. Consider widespread sclerotic metastatic disease or a myeloproliferative disorder. Moderately exaggerated mid thoracic kyph osis with slight chronic loss of anterior vertebral body height at several levels. No recent thoracic fracture identified. Multilevel low-grade disc degenerative c hanges. No thoracic disc herniations are identified. The central canal is widely patent. No intrinsic thoracic cord abnormalities identified. No abnormal intradural IV gadolinium enhancement. The thoracic neural foramina are patent. Sizable bilateral pleural fluid collecti ons noted. Impression: 1. Diffusely abnormal marrow. The chief diagnostic possibilities would include sclerotic metastatic disease or a myeloproliferative disorder. 2. Normal appearing thoracic cord. No pr esent compromise of the thoracic spinal canal. 3. Multilevel low-grade disc degenerativ e changes. Dictated by Denis Perkins MD @ 03/21/20 8:19:42 AM (Electronically Signed) Jackie Lowery NP MR MR SPINE LUMBAR W/WO CONTRAST (03/20/2022 7:31 PM CDT) Anatomical Region Laterality Modality Spine, LUMBAR SPINE Magnetic Resonance Specimen (Source) Anatomical Collection Method Collection Time Re ceived Time Location / / Volume Laterality 03/21/2022 8:26 AM CDT Narrative 03/21/2022 8:26 AM CDT For Patients: ??As a result of the Cures Act, medical imaging exams and procedure report s are released immediately into your [facility] medical record. ??You may view this report before your referring provider. ??If you have questions, please contact your health care provider. Indication: Low back pain. Suspect cancer. Technique: T2, T1, and STIR sagittal as well as T1 and T2 axial sequences were obtained. Post gadolinium T1 imaging is also acqui red. Contrast: 7.5 mL Gadavist. Comparison: None available. Findings: Diffusely decreased T1 signal in the vis ualized marrow with heterogeneous marrow enhancement consistent with a marrow packing disorder. Consider sclerotic metastatic disease or myeloproliferative disease. No evidence for recent fracture. Alignment is anatomic. No high grade central canal stenosis. The conus and cauda equina are unremarka ble, with the tip of the cord at the L1 level. No abnormal intradural IV gadolinium enh ancement. There is increased T2 signal and increas ed enhancement involving the included iliac muscles on both sides, greater on the right. T12-L1 thru L3-4: Trace degenerative nikhil nges. The foramina are patent. L4-5: Bilateral facet osteoarthritis, mo derate right and severe on the left where there is a small joint effusion. Mild disc degeneration. Mild foraminal narrowing. L5-S1: ??Severe bilateral facet osteoart hritis, greater on the right. Mild disc degeneration. Moderate narrowing of the neural foramina. Impression: 1. Diffusely abnormal marrow. 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 2. No fractures are identified. Lumbar a lignment is anatomic. 3. The conus medullaris and cauda equina are unremarkable. No compromise of the lumbar spinal canal. 4. Advanced osteoarthritis in the lower lumbar facet joints. Dictated by Denis Perkins MD @ 03/21/20 8:26:57 AM (Electronically Signed) Procedure Note Denis Perkins MD - 2 For Patients: As a result of the ntury Cures Act, medical imaging exams and procedure reports are released immediately into your electronic medical record. You may view this report before your referring provider. If you have questions, please contact yo health care provider. Indication: Low back pain. Suspect cancer. Technique: T2, T1, and STIR sagittal as well as T1 and T2 axial sequences were obtained. Post gadolinium T1 imaging is also acqui red. Contrast: 7.5 mL Gadavist. Comparison: None available. Findings: Diffusely decreased T1 signal in the vis ualized marrow with heterogeneous marrow enhancement consistent with a marrow packing disorder. Consider sclerotic metastatic disease or myeloproliferative disease. No evidence for recent fracture. Alignment is anatomic. No high grade central canal stenosis. The conus and cauda equina are unremarka ble, with the tip of the cord at the L1 level. No abnormal intradural IV gadolinium enh ancement. There is increased T2 signal and increas ed enhancement involving the included iliac muscles on both sides, greater on the right. T12-L1 thru L3-4: Trace degenerative nikhil nges. The foramina are patent. L4-5: Bilateral facet osteoarthritis, mo derate right and severe on the left where there is a small joint effusion. Mild disc degeneration. Mild foraminal narrowing. L5-S1: Severe bilateral facet osteoarthr itis, greater on the right. Mild disc degeneration. Moderate narrowing of the neural foramina. Impression: 1. Diffusely abnormal marrow. 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 2. No fractures are identified. Lumbar a lignment is anatomic. 3. The conus medullaris and cauda equina are unremarkable. No compromise of the lumbar spinal canal. 4. Advanced osteoarthritis in the lower lumbar facet joints. Dictated by Denis Perkins MD @ 03/21/20 8:26:57 AM (Electronically Signed) Jackie Lowery NP MR (ABNORMAL) PROTIME-INR (03/20/2022 3:15 PM CDT) P athologist Signature INR 1.2 <1.3 03/20/2022 [facility] 3:43 PM CDT LABORATORY-[facility] LABORATORY PROTIME 14.7 (H) 12.0 - 13.8 03/20/2022 [facility] sec 3:43 PM CDT LABORATORY-[facility] Specimen Anatomical Collection Method / Collection Time Recei jennifer Time (Source) Location / Volume Laterality Blood BLOOD SPECIMEN / Venipuncture / 03/20/2022 3:15 2021 3:22 Unknown Unknown PM CDT PM CDT Narrative [facility] LABORATORY-CENTRAL LABORAT ORY - 03/20/2022 3:43 PM CDT ?Therapeutic Range 2.0-3.0 for most anticoagulated patients 2.5-3.5 or 4.0 for high risk patients The INR is only used for patients on sta ble oral anticoagulant therapy. It makes no significant contribution to the diagnosis or treatment of patients whose Protime is prolonged f or other reasons. INR results are increased when heparin l evels exceed 1.0 U/mL, which corresponds to an aPTT >125 seconds if the patient is on UFH. Jeff Glez MD HEMATOLOGY Performing Organization Address City/State/ZIP Code Phon e Number [facility] [id number] [place] [address] LABORATORY-CENTRAL 2000 LABORATORY US THORACENTESIS INCL IMAGE GUIDE LEFT (03/20/2022 10:57 AM CDT) Anatomical Region Laterality Modality CHEST, THORAX Ultrasound Specimen (Source) Anatomical Location Collection Method / Collectio n Time Received Time / Laterality Volume Narrative 03/20/2022 11:57 AM CDT RADIOLOGY IMMEDIATE POST PROCEDURE NOTE ?? 03/20/2022 Sandip Montano [id number] 1940 INDICATIONS: Left pleural effusion. PROCEDURE PERFORMED: ??Ultrasound guided left diagnostic/therapeutic thoracentesis. ?? FINDINGS (DESCRIPTION OF EACH PROCEDURE) : ??Left pleural effusion. POST-PROCEDURE DIAGNOSIS: ??Status post left thoracentesis. PATIENT POSITION: upright ANTISEPTIC PREPARATION and BARRIER TECHN IQUES USED: ??skin was prepped and draped in the usual sterile fashion IMAGING GUIDANCE FOR ACCESS / PROCEDURE: ??Ultrasound ACCESS LOCATION / SITE / TECHNIQUE: ??Le ft posterolateral chest wall. EQUIPMENT UTILIZED: 5 Fr Merit centesis needle. CLOSURE: ??none RADIATION DOSE: ?? None. MEDICATIONS GIVEN: ?Lidocaine for lo charlette anesthesia. SPECIMEN(S): 1200 cc of clear, yellow fl uid. ??A 200 cc sample was sent to the lab for analysis. COMPLICATIONS: no complications noted DRAINS: ??None ?? ESTIMATED BLOOD LOSS: ??Less than 10 cc. PHYSICIAN(S) AND ASSISTANTS (if any): ?? Josesito Martínez MD Additional Comments: In my discussion, prior to the signing o f the consent, I reviewed the procedure, benefits, risks, long-term ef fects, treatment options, possible use of pain or sedation medications, and how the procedure will meet the treatment goal with the patient and/or f amily. The patient was given ample time to ask questions. All questions wer e answered. Utilizing sterile technique, local anes thesia with 1% lidocaine, and sonographic guidance, a 5 Fr Cecilio odom is needle was placed into a pocket of fluid in the left pleural space. ??Cl ear, yellow fluid was obtained. ??No immediate complications. ??Patient jeison ated the procedure well. ??Immediate post procedure chest radiograph is pendi ng. Please call with questions. Josesito Martínez MD [place] Protocol A. Pre-procedure verification complete y es 1-relevant information / documentation a vailable, reviewed and properly matched to the patient; 2-consent accura te and complete, 3-equipment and supplies available B. Site marking complete Yes Site marked if not in continuous attenda nce with patient C. TIME OUT completed yes Time Out was conducted just prior to sta rting procedure to verify the eight required elements: 1-patient ident ity, 2-consent accurate and complete, 3-position, 4-correct side/sit e marked (if applicable), 5-procedure, 6-relevant images / results properly labeled and displayed (if applicable), 7-antibiotics / irrigat ion fluids (if applicable), 8-safety precautions. Alex Livingston MD [facility] PATH REVIEW BODY FLUID (03/20/2022 10:30 AM CDT) athologist Signature PATH COMMENT Comment 03/21/2022 [facility] 4:19 PM CDT LABORATORY-JAD TRAL LABORATORY Comment: Atypical cells present- see adriana parson Cytology report. Reviewed by Dr. Gelacio Way on 03/21/2022. Specimen Anatomical Collection Method Collection Time Receive d Time (Source) Location / / Volume Laterality Body Fluid PLEURAL FLUID Non-Blood / 03/20/2022 10:30 03/20/2022 SPECIMEN / Unknown Unknown AM CDT 10:49 AM CDT Alex Livingston MD LABORATORY Performing Organization Address City/State/ZIP Code Phon e Number [facility] [id number] [place] [address] LABORATORY-CENTRAL 2000 LABORATORY BODY FLUID CULTURE, STAIN (03/20/2022 10:30 AM CDT) Patholo gist Method Time Signature CULTURE No Growth. 03/25/2022 [facility] 1:22 PM CDT LABORATORY-J[facility] TRAL LABORATORY GRAM STAIN 1+ PMNs 03/25/2022 [facility] 1:22 PM CDT LABORATORY-J[facility] TRAL LABORATORY GRAM STAIN No organisms 03/25/2022 [facility] seen 1:22 PM CDT LABORATORY-[facility] TR[facility] LABORATORY Specimen Anatomical Collection Method Collection Time Receive d Time (Source) Location / / Volume Laterality Body Fluid Non-Blood / 03/20/2022 10:30 03/20/2022 (Pleural) Unknown AM CDT 10:49 AM CDT Alex Livingston MD MICROBIOLOGY Performing Organization Address City/State/ZIP Code Phon e Number [facility] [address] [place] [address] LABORATORY-CENTRAL 2000 LABORATORY PATH NON DETECTIVE NARCOTICS AND VICE CYTOLOGY (03/20/2022 10:30 AM CDT) Component Value Ref Test Analysis Performed Pathologis t Range Method Time At Signature Case Report Medical Cytology Report ? Case: [id number] ? [facility] Authorizing Provider: ??Alex Lopez MD Collected: ? 03/20/2022 1030 ? 2 12:12 HEALTH Ordering Location: ? [facility] ?Received: ?03/20/2022 1049 ? PM CDT [facility]- ? Hospital ? CENTRAL Pathologist: ? [address] ? LABORATORY ? MD Song ? Specimen: ?Pleural Fluid ? Final A) LEFT PLEURAL FLUID FOR CYTOLOGY: ?? 0 [facility] Electronically Diagnosis 1. Positive for malignancy, metastatic adenocarcinoma suggestive of GI origin 2 12:12 HEALTH signed by 2. See comment PM CDT LABORATORY- Gelacio Leal LABORATORY on 03/25 at 12:12 P M Comment The immunohistochemical stai jaden profile is supporting an adenocarcinoma from a GI origin. Immunostains for prostatic adenocarcinoma are negative. Clinical correlation with imaging studies recommended to help identified a primary source. [facility] 2 12:[address] discussed the pr eliminary findings on this case with Dr. Glez on 03/21/2022 at 4:15 PM and the final results are discussed on 03/25/2022 at 12:10 PM. PM CDT LABORATORY- [facility] This case was seen in consul tation with Dr. Quarles before last round of immunostains. LABORATORY Case seen in consultation [facility] Dr. Medrano, who has reviewed the entire case and concurs with the final diagnosis. See also iliac bone biopsy pathology report, [id number], curre ntly pending. Clinical Mr. Montano is a 81 y.o. [facility] Information with concern for 2 12:12 HEALTH metastatic disease - PM CDT LABORATOR Y- likely prostate. He CENTRAL has a large left and LABORATOR Y moderate right-sided pleural effusion with atelectasis with associated emphysematous changes and diffuse osseous sclerosis concerning for metastatic disease. A CT iliac bone biopsy is also being performed. Gross [facility] Description A) SOURCE: Pleural fluid, left 2 12:12 HEALTH PM CDT LABORATORY- The specimen consists of 170 cc of peach cloudy fluid from which the following is prepared: CENTRAL ? -1 DiffQuik stained slide LABORATORY ? -1 Papanicolaou stained ThinPrep slide ? -1 H&E stained cell block slide A1 Cell block material was p laced in formalin at 1220 on 03/20/22 and fixed in formalin at least 6 hours and no more than 72 hours. A4 Cell block material was p laced in formalin at 1715 on 03/21/22 and fixed in formalin at least 6 hours and no more than 72 hours. Microscopic Specimen adequacy: Adequate for interpretation. [facility] Description 2 12:12 HEALTH All slides were reviewed. Th e microscopic appearance substantiates the diagnosis. PM CDT LABORATORY- CENTRAL Immunostains were performed using block A1 with results as follows: LABORATORY NKX3.1-FL: negative PSA (Prostate Specif Ant): negative PSAP (Prostate Acid Phos): negative TTF1 (Thy Trans Fact1): negative P40: negative CLAUDIN4: positive Calretinin: negative WT-1: negative MOC 31: positive Cytokeratin 7: positive (subset tumor cells) Cytokeratin 20: positive (diffuse) CDX2: positive ALLISON-3: negative PAX8: negative Napsin: negative BG8: positive Support for the interpretati on of this case may have included the use of immunohistochemistry and/or in situ hybridization tests that were performed by [facility] and whose performance characteristics were evaluat ed by pathologists from [facility]. These tests have not been cleared or approved by the U.S. Food and Drug Administration. The FDA has determined that suc h clearance or approval is n ot necessary. These tests are used for clinical purposes and should not be regarded as investigational or for research. This laboratory is certified under the Clinical Labora tory Improvement Amendments of 1988 (CLIA) as qualified to perform high complexity clinical laboratory testing. Additional Cytology is screened at [facility], Central Laboratory - [address], [place] [address] and [facility] - [address], [place] [address] [address] [facility] - [address] [place] [address] 2 12:12 HEALTH PM CDT LABORATORY- Interpreted at [facility], Central Laboratory - [address], [place] [address] CENTRAL LABORATORY Specimen Anatomical Collection Method Collection Time Receive d Time (Source) Location / / Volume Laterality Other PLEURAL FLUID Non-Blood / 03/20/2022 10:30 03/20/2022 SPECIMEN / Unknown Unknown AM CDT 10:49 AM CDT Comment: Left Alex Livingston MD PATHOLOGY/CYTOLOGY Performing Organization Address City/State/ZIP Code Phon e Number [facility] [address] [place] [address] LABORATORY-CENTRAL 2000 LABORATORY BODY FLUID CELL COUNT/DIF (03/20/2022 10:30 AM CDT) [facility] Method Time Signature BODY FLUID Pleural 03/21/2022 [facility] SOURCE Fluid 4:19 PM CDT LABORATORY-JAD TRAL LABORATORY BODY FLUID Blood 03/21/2022 [facility] COLOR Tinged 4:19 PM CDT LABORATORY-J[facility] TRAL LABORATORY BODY FLUID Cloudy 03/21/2022 [facility] CLARITY 4:19 PM CDT LABORATORY-[facility] TRAL LABORATORY TOTAL 3,504 /cu mm 03/21/2022 [facility] NUCLEATED 4:19 PM CDT LABORATORY-JAD CELLS, BF TRAL LABORATORY RED BLOOD 13,000 /cu mm 03/21/2022 [facility] COUNT, BODY 4:19 PM CDT LABORATORY-JAD FLUID TRAL LABORATORY % NEUTROPHILS, 24 % 03/21/2022 [facility] BODY FLUID 4:19 PM CDT LABORATORY-[facility] TRAL LABORATORY % LYMPHOCYTES, 8 % 03/21/2022 [facility] BODY FLUID 4:19 PM CDT LABORATORY-[facility] TRAL LABORATORY % MONO/MACRO, 2 % 03/21/2022 [facility] BODY FLUID 4:19 PM CDT LABORATORY-J[facility] TRAL LABORATORY % EOSINOPHILS, 15 % 03/21/2022 [facility] BODY FLUID 4:19 PM CDT LABORATORY-[facility] TRAL LABORATORY % BASOPHILS, 1 % 03/21/2022 [facility] BODY FLUID 4:19 PM CDT LABORATORY-J[facility] TRAL LABORATORY % OTHER CELLS 50 % 03/21/2022 [facility] 4:19 PM CDT LABORATORY-[facility] TR[facility] LABORATORY Comment: Atypical cells present- see adriana parson Cytology report. Specimen Anatomical Collection Method Collection Time Receive d Time (Source) Location / / Volume Laterality Body Fluid PLEURAL FLUID Non-Blood / 03/20/2022 10:30 03/20/2022 SPECIMEN / Unknown Unknown AM CDT 10:49 AM CDT Alex Livingston MD BODY FLUID Performing Organization Address City/State/ZIP Code Phon e Number [facility] [address] [place] [address] LABORATORY-CENTRAL 2000 LABORATORY PROTEIN,BODY FLUID (03/20/2022 10:30 AM CDT) P athologist Signature SPECIMEN Pleural 03/20/2022 [facility] SOURCE 12:33 PM CDT LABORATORY-JAD TRAL LABORATORY PROTEIN,BODY 4.6 g/dL 03/20/2022 [facility] FLUID 12:33 PM CDT LABORATORY-JAD TRAL LABORATORY Specimen Anatomical Collection Method Collection Time Receive d Time (Source) Location / / Volume Laterality Body Fluid PLEURAL FLUID Non-Blood / 03/20/2022 10:30 03/20/2022 SPECIMEN / Unknown Unknown AM CDT 10:49 AM CDT Narrative [facility] LABORATORY-CENTRAL LABORAT ORY - 03/20/2022 12:33 PM CDT Test developed & performance characteristics determined by [facility], [place], [place] consistent with CLIA requirements. Not cleared or approved by US FDA. Pleural: ?Pleural fluid transudat e total protein to serum total protein ratio typically </= 0.5 ?Pleural fluid exuda te total protein to serum total protein ratio typically >0.5 Peritoneal: ?? Ascitic fluid total prote in is a reflection of serum protein concentration ?May be useful in di fferentiating secondary bacterial peritonitis ?from spontaneous ba cterial peritonitis when at least two of the ?three criteria are met in ascetic fluid: ?Total protein > 1.0 g/dL ?Glucose < 50 mg/dL ?LDH > upper r eference limit for serum ?Ascitic fluid total protein may be elevated > 2.5 g/dL in patients with high albumin gradient ascites caused by heart failure. Alex Livingston MD BODY FLUID Performing Organization Address City/State/ZIP Code Phon e Number [facility] [address] [place] [address] LABORATORY-CENTRAL 2000 LABORATORY PH,BODY FLUID (03/20/2022 10:30 AM CDT) athologist Signature PH,BODY FLUID 7.34 03/21/2022 [facility] 4:19 PM CDT LABORATORY-CENT RAL LABORATORY Comment: Pleural fluid pH >7.2 rarely co incides with complicated para-pneumonic effusions and do not typically require t herapeutic thoracentesis. Specimen Source Pleural 03/21/2022 4:19 PM C DT [facility] LABORATORY-CENTRAL LABORATORY Specimen Anatomical Collection Method Collection Time Receive d Time (Source) Location / / Volume Laterality Body Fluid PLEURAL FLUID Non-Blood / 03/20/2022 10:30 03/20/2022 SPECIMEN / Unknown Unknown AM CDT 10:49 AM CDT Alex Livingston MD BODY FLUID Performing Organization Address City/State/ZIP Code Phon e Number [facility] [address] [place] [address] LABORATORY-CENTRAL 2000 LABORATORY LD,BODY FLUID (03/20/2022 10:30 AM CDT) P athologist Signature SPECIMEN Pleural 03/20/2022 [facility] SOURCE 12:33 PM CDT LABORATORY-JAD TRAL LABORATORY LD,BODY FLUID 1,460 IU/L 03/20/2022 [facility] 12:33 PM CDT LABORATORY-JAD TRAL LABORATORY Specimen Anatomical Collection Method Collection Time Receive d Time (Source) Location / / Volume Laterality Body Fluid PLEURAL FLUID Non-Blood / 03/20/2022 10:30 03/20/2022 SPECIMEN / Unknown Unknown AM CDT 10:49 AM CDT Narrative [facility] LABORATORY-CENTRAL LABORAT ORY - 03/20/2022 12:33 PM CDT Test developed & performance characteristics determined by [facility], [place], [place] consistent with CLIA requirements. Not cleared or approved by US FDA. Pleural: ? Pleural fluid LDH to seru m LDH ratio </= 0.6 or less than 2/3 the ? upper limit of normal serum LDH consistent with transudative ? effusions, while pleu ral fluid LDH to serum LDH ratio >6.0 is ? consistent with exuda tive effusions. Peritoneal: ??Ascitic fluid LDH may be u seful in differentiating secondary ? bacterial peritonitis from spontaneous bacterial peritonitis when ? at least two of the t hree criteria are met in ascites Fluid: ?Total protein >1 .0 g/dL ?Glucose <50 mg/d L ?LDH > upper refe rence limit for serum Alex Livingston MD BODY FLUID Performing Organization Address City/State/ZIP Code Phon e Number [facility] [address] [place] [address] LABORATORY-CENTRAL 2000 LABORATORY Echocardiogram TODAY (03/20/2022 9:46 AM CDT) P athologist Signature AORTIC VALVE 5 mmHg MEAN PG EJECTION 63 % FRACTION PEAK TR 2.9 m/s VELOCITY LVEDD 4.5 cm Anatomical Region Laterality Modality HEART Ultrasound Specimen (Source) Anatomical Collection Method Collection Time Re ceived Time Location / / Volume Laterality 03/20/2022 9:08 AM CDT Narrative 03/20/2022 11:29 AM CDT ECHOCARDIOGRAM SANDIP SR CHARMAINE ? Accessi on#: ?? [id number] : ?1940 81 years Study Date: ?? 03/20/2022 9:08:44 AM Gender: M ?BP: ? 163/75 mmHg Height: 165.00 cm ?BSA: ?1.60 m? ?? Weight: 55.00 kg ? Tech: ? AH ? Referring MD: ALEX LIVINGSTON Site: ? [facility] Reading Location: [facility] Procedure: 2D, Color Doppler and Spectra l Doppler. Indication for study: LV function Cardiac Rhythm: Normal sinus.Study quali ty: Final Impressions: 1. Normal left ventricular size, normal wall thickness, normal global systolic function, calculated EF of 63 %. 2. Right ventricular cavity size is nor mal, global systolic RV function is normal. 3. Normal left atrium size. 4. The aortic valve is sclerotic, mild stenosis and trivial regurgitation. 5. The mitral valve is thickened and mi ld annular calcification (anterior and posterior), trace mitral regurgitation. 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 Moderate tricuspid regurgitation. 8. No pericardial effusion. Comparison There are no prior studies on this patie nt for comparison purposes. Chamber Sizes and Function Normal left ventricular size, normal wal l thickness, normal global systolic function, calculated EF of 63 %. Left atrial size is normal. Right ventricular cavity size is normal, global systolic RV funct ion is normal. The right atrium is andrea l. Right atrial area is 19 cm? ??. The pulmonary artery is of normal size and origin. The sinus of Valsalva is normal sized. The ascending aorta is normal sized. Valves, RV Pressures and Diastolic Funct ion The aortic valve is sclerotic, mild sten osis and trivial regurgitation. The mitral valve is thickened and mild annular calcification (anterior and posterior), trace mitral regurgitation. Normal diastoli c function. The tricuspid valve is myxom atous. Tricuspid regurgitation is moderate. The tricuspid regurgitant velocity is 2.9 m/s, the estimated right ventricular systolic pressure is 33 mmHg plus right atrial pressure. The pulmonic valve is normal. Mild pulmonary regurgitation. Masses, Effusion, Shunts There is no pericardial effusion. The in ferior vena cava is normal sized, respiratory size variation greater than 50%. No left to right shunting was detected by limited color flow Doppler interrogation of the interatrial septum. MEASUREMENTS AND CALCULATIONS 2-D Measurements and LV Function: LVID (d) 4.5 cm Planimetered EF 63 % LVID (s) 3.2 cm LV FS% (2D) ? 28 % IVS (d) ??0.9 cm LVOT diameter ?? 2.2 cm LVPW (d) 0.9 cm HR ?6 5 bpm Ao Sinus 3.4 cm LA Vol index ?20 ml/ m2 Asc Ao ?? 3.2 cm RA area ? 19 cm? ?? LA ? 3.2 cm Diastology: Mitral ?Tissue Doppler E Peak 0.6 m/s ??e', Septum ? 0.07 m /s A Peak 0.8 m/s ??e', Lateral ?0.06 m /s E/A ?0.7 ?E/e' Average ?? 8.9 3 DT ? 229 msec Aortic Valve: Vmax ? 1.6 m/s ??JERSEY (V) ?? 1.82 cm? ?? VTI ?0.36 m ?? JERSEY (I) ?? 1.95 cm? ?? LVOT V max 0.7 m/s ??Max PG ?10 mmHg LVOT VTI ?? 0.18 m ?? Mean PG ?? 5 mmHg SV ? 71 ml ?Dim Index 0.50 SV index ?? 44 ml/m? ?? CO ?4.6 l/min ?CI ?2.9 l/min/m? ?? Mitral Valve: MVA ?3.3 cm? ?? MV P 1/2 66 msec Tricuspid Valve and estimated PA pressur es: TR Vmax 2.9 m/s TAPSE 2.1 cm TR maxG 33 mmHg Pulmonic Valve: PV Vmax 1.0 m/s PV AT ?? 108 msec . This study was interpreted by an [facility] redited facility. ??Final ?? Procedure Note Deloris Kay, [facility] - 03/20/2022Formatt ing of this note might be different from the original. ECHOCARDIOGRAM SANDIP MONTANO : 1940 81 years Study Date: 2021 9:08:44 AM Gender: M BP: 163/75 mmHg Height: 165.00 cm BSA: 1.60 m? ?? Weight: 55.00 kg Tech: Referring MD: ALEX LIVINGSTON Site: [facility] Reading Location: [facility] Procedure: 2D, Color Doppler and Spectra l Doppler. Indication for study: LV function Cardiac Rhythm: Normal sinus.Study quali ty: Final Impressions: 1. Normal left ventricular size, normal wall thickness, normal global systolic function, calculated EF of 63 %. 2. Right ventricular cavity size is nor mal, global systolic RV function is normal. 3. Normal left atrium size. 4. The aortic valve is sclerotic, mild stenosis and trivial regurgitation. 5. The mitral valve is thickened and mi ld annular calcification (anterior and posterior), trace mitral regurgitation. 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 Moderate tricuspid regurgitation. 8. No pericardial effusion. Comparison There are no prior studies on this patie nt for comparison purposes. Chamber Sizes and Function Normal left ventricular size, normal wal l thickness, normal global systolic function, calculated EF of 63 %. Left atrial size is normal. Right ventricular cavity size is normal, global systolic RV function is normal. The right atrium is normal. Righ t atrial area is 19 cm? ??. The pulmonary artery is of normal size and origin. The sinus of Valsalva is normal sized. The ascending aorta is normal sized. Valves, RV Pressures and Diastolic Funct ion The aortic valve is sclerotic, mild sten osis and trivial regurgitation. The mitral valve is thickened and mild annular calcification (anterior and posterior), trace mitral regurgitation. Normal diastolic function. The tricuspid valve is myxomatous. Tricuspid regurgitation is moderate. The tricuspid regurgitant velocity is 2.9 m/s, the estimated right ventricular systolic pressure is 33 mmHg plus right atrial pressure. The pulmonic valve is normal. Mild pulmonary regurgit ation. Masses, Effusion, Shunts There is no pericardial effusion. The in ferior vena cava is normal sized, respiratory size variation greater than 50%. No left to right shunting was detected by limited color flow Doppler interrogation of the interatrial septum. MEASUREMENTS AND CALCULATIONS 2-D Measurements and LV Function: LVID (d) 4.5 cm Planimetered EF 63 % LVID (s) 3.2 cm LV FS% (2D) 28 % IVS (d) 0.9 cm LVOT diameter 2.2 cm LVPW (d) 0.9 cm HR 65 bpm Ao Sinus 3.4 cm LA Vol index 20 ml/m2 Asc Ao 3.2 cm RA area 19 cm? ?? LA 3.2 cm Diastology: Mitral Tissue Doppler E Peak 0.6 m/s e', Septum 0.07 m/s A Peak 0.8 m/s e', Lateral 0.06 m/s E/A 0.7 E/e' Average 8.93 DT 229 msec Aortic Valve: Vmax 1.6 m/s JERSEY (V) 1.82 cm? ?? VTI 0.36 m JERSEY (I) 1.95 cm? ?? LVOT V max 0.7 m/s Max PG 10 mmHg LVOT VTI 0.18 m Mean PG 5 mmHg SV 71 ml Dim Index 0.50 SV index 44 ml/m? ?? CO 4.6 l/min CI 2.9 l/min/m? ?? Mitral Valve: MVA 3.3 cm? ?? MV P 1/2 66 msec Tricuspid Valve and estimated PA pressur es: TR Vmax 2.9 m/s TAPSE 2.1 cm TR maxG 33 mmHg Pulmonic Valve: PV Vmax 1.0 m/s PV AT 108 msec . This study was interpreted by an [facility] facility. Final Alex Livingston MD ECHO ORD (ABNORMAL) URINALYSIS MICROSCOPIC (03/20/2022 8:12 AM CDT) [facility] Method Time Signature RBC >100 (A) 0-2, None 03/20/2022 [facility] Seen /HPF 8:34 AM CDT LABORATORY-JAD TRAL LABORATORY WBC 3-5 0-2, 3-5, 03/20/2022 [facility] Lexara None Seen 8:34 AM CDT LABORATORY-JAD /HPF TRAL LABORATORY BACTERIA Rare None 03/20/2022 [facility] Lexara Seen, 8:34 AM CDT LABORATORY-JAD Rare, Few TRAL Bacteria/ LABORATORY HPF EPITHELIAL None Seen None 03/20/2022 [facility] CELLS Seen, Few 8:34 AM CDT LABORATORY-JAD Epi/HPF TRAL LABORATORY Specimen Anatomical Collection Method Collection Time Receive d Time (Source) Location / / Volume Laterality Urine URINE SPECIMEN / Non-Blood / 03/20/2022 8:12 AM 03/20 8:19 Unknown Unknown CDT AM CDT Alex Livingston MD URINE Performing Organization Address City/State/ZIP Code Phon e Number [facility] [address] [place] [address] LABORATORY-CENTRAL 1999 LABORATORY (ABNORMAL) UA W/ SEDIMENT EXAM REFLEXED PER CRITERIA (03/20/2022 8:12 AM CDT) [facility] Method Time Signature COLOR Yellow Yellow Color 03/20/2022 [facility] 8:34 AM CDT LABORATORY-CE NTRAL LABORATORY CLARITY Clear Clear 03/20/2022 [facility] Clarity 8:34 AM CDT LABORATORY-CE NTRAL LABORATORY SPECIFIC >=1.030 (A) 1.010, 03/20/2022 [facility] GRAVITY,URINE 1.015, 8:34 AM CDT LABORATORY-CE 1.020, 1.025 NTRAL LABORATORY PH,URINE 6.0 6.0, 7.0, 03/20/2022 [facility] 8.0, 5.5, 8:34 AM CDT LABORATORY-CE 6.5, 7.5, NTRAL 8.5 LABORATORY UROBILINOGEN, Normal Normal EU/dl 03/20/2022 [facility] 8:34 AM CDT LABORATORY-CE NTRAL LABORATORY PROTEIN, 30 (A) Negative 03/20/2022 [facility] URINE mg/dL 8:34 AM CDT LABORATORY-CE NTRAL LABORATORY GLUCOSE, Negative Negative 03/20/2022 [facility] URINE mg/dL 8:34 AM CDT LABORATORY-CE NTRAL LABORATORY KETONES,URINE 15 (A) Negative 03/20/2022 [facility] mg/dL 8:34 AM CDT LABORATORY-CE NTRAL LABORATORY BILIRUBIN,URI Negative Negative 03/20/2022 [facility] NE 8:34 AM CDT LABORATORY-CE NTRAL LABORATORY OCCULT Large (A) Negative 03/20/2022 [facility] BLOOD,URINE 8:34 AM CDT LABORATORY-CE NTRAL LABORATORY NITRITE Negative Negative 03/20/2022 [facility] 8:34 AM CDT LABORATORY-CE NTRAL LABORATORY LEUKOCYTE Small (A) Negative 03/20/2022 [facility] ESTERASE 8:34 AM CDT LABORATORY-CE NTRAL LABORATORY Specimen Anatomical Collection Method Collection Time Receive d Time (Source) Location / / Volume Laterality Urine URINE SPECIMEN / Non-Blood / 03/20/2022 8:12 AM 03/20 8:19 Unknown Unknown CDT AM CDT Alex Livingston MD URINE Performing Organization Address City/State/ZIP Code Phon e Number [facility] [address] [place] [address] LABORATORY-CENTRAL 1999 LABORATORY (ABNORMAL) CBC W Plt No Diff (03/20/2022 7:20 AM CDT) [facility] Method Time Signature WHITE BLOOD 8.3 4.5 - 11.0 03/20/2022 [facility] COUNT thou/cu mm 7:49 AM CDT LABORATORY-JAD TRAL LABORATORY RED BLOOD COUNT 3.89 (L) 4.30 - 03/20/2022 [facility] 5.90 7:49 AM CDT LABORATORY-JAD mil/cu mm TRAL LABORATORY HEMOGLOBIN 12.7 (L) 13.5 - 03/20/2022 [facility] 17.5 g/dL 7:49 AM CDT LABORATORY-JAD TRAL LABORATORY HEMATOCRIT 37.7 37.0 - 03/20/2022 [facility] 53.0 % 7:49 AM CDT LABORATORY-JAD TRAL LABORATORY MCV 97 80 - 100 03/20/2022 [facility] fL 7:49 AM CDT LABORATORY-JAD TRAL LABORATORY MCH 32.6 26.0 - 03/20/2022 [facility] 34.0 pg 7:49 AM CDT LABORATORY-JAD TRAL LABORATORY MCHC 33.7 32.0 - 03/20/2022 [facility] 36.0 g/dL 7:49 AM CDT LABORATORY-JAD TRAL LABORATORY RDW 14.1 11.5 - 03/20/2022 [facility] 15.5 % 7:49 AM CDT LABORATORY-JAD TRAL LABORATORY PLATELET COUNT 220 140 - 440 03/20/2022 [facility] thou/cu mm 7:49 AM CDT LABORATORY-JAD TRAL LABORATORY MPV 9.6 6.5 - 11.0 03/20/2022 [facility] fL 7:49 AM CDT LABORATORY-JAD TRAL LABORATORY NRBC 0.0 % 03/20/2022 [facility] 7:49 AM CDT LABORATORY-JAD TRAL LABORATORY ABS NRBC 0.0 thou /cu 03/20/2022 [facility] mm 7:49 AM CDT LABORATORY-JAD TRAL LABORATORY Specimen Anatomical Collection Method Collection Time Receive d Time (Source) Location / / Volume Laterality Blood BLOOD SPECIMEN / Butterfly / 03/20/2022 7:20 AM 03/20 7:40 Unknown Unknown CDT AM CDT Alex Livingston MD HEMATOLOGY Performing Organization Address City/State/ZIP Code Phon e Number [facility] [address] [place] [address] LABORATORY-CENTRAL 2000 LABORATORY (ABNORMAL) PSA, diagnostic AM (03/20/2022 7:20 AM CDT) Analysis Performed At Patho logist Time Signature PSA TOTAL 4.08 (H) <4.00 03/20/2022 [facility] (DIAGNOSTIC) ng/mL 8:46 AM CDT LABORATORY-JAD TRAL LABORATORY Specimen Anatomical Collection Method Collection Time Receive d Time (Source) Location / / Volume Laterality Blood BLOOD SPECIMEN / Butterfly / 03/20/2022 7:20 AM 03/20 7:40 Unknown Unknown CDT AM CDT Narrative [facility] LABORATORY-CENTRAL LABORAT ORY - 03/20/2022 8:46 AM CDT The percentage of Free PSA can be used to enhance the differentiation of prostate cancer from benign prostatic disease in subjects whose PSA levels are between 4.00 and 10.00 ng/mL. The % Free PSA will be reported only for PSA values between 4.00 and 10.00 ng/mL. The [employer] PSA assay is a Chem iluminescent Microparticle Immunoassay(CMIA). Assay values obtained with different assay methods cannot be used interchangeably due to differences in assay method s and reagent specificity. ? Alex Livingston MD CHEMISTRY Performing Organization Address City/State/ZIP Code Phon e Number [facility] [address] [place] [address] LABORATORY-CENTRAL 2000 LABORATORY (ABNORMAL) Hepatic Function Panel (03/20/2022 7:20 AM CDT) [facility] Method Time Signature ALBUMIN 2.8 (L) 3.2 - 4.6 03/20/2022 [facility] g/dL 8:34 AM CDT LABORATORY-JAD TRAL LABORATORY PROTEIN,TOTAL 5.2 (L) 6.0 - 8.0 03/20/2022 [facility] g/dL 8:34 AM CDT LABORATORY-JAD TRAL LABORATORY GLOBULIN 2.4 2.0 - 3.7 03/20/2022 [facility] g/dL 8:34 AM CDT LABORATORY-JAD TRAL LABORATORY A/G RATIO 1.2 1.0 - 2.0 03/20/2022 [facility] 8:34 AM CDT LABORATORY-JAD TRAL LABORATORY BILIRUBIN,TOTAL 0.3 0.2 - 1.2 03/20/2022 [facility] mg/dL 8:34 AM CDT LABORATORY-JAD TRAL LABORATORY BILIRUBIN,DIRECT 0.1 0.1 - 0.5 03/20/2022 [facility] mg/dL 8:34 AM CDT LABORATORY-JAD TRAL LABORATORY BILIRUBIN,INDIRE 0.2 0.2 - 0.8 03/20/[address] [facility] [address] mg/dL 8:34 AM CDT LABORATORY-JAD TRAL LABORATORY ALK PHOSPHATASE 851 (H) 50 - 136 03/20/2022 [facility] IU/L 8:34 AM CDT LABORATORY-JAD TRAL LABORATORY ALT (SGPT) 8 8 - 45 03/20/2022 [facility] IU/L 8:34 AM CDT LABORATORY-JAD TRAL LABORATORY AST (SGOT) 14 2 - 40 03/20/2022 [facility] IU/L 8:34 AM CDT LABORATORY-JAD TRAL LABORATORY Specimen Anatomical Collection Method Collection Time Receive d Time (Source) Location / / Volume Laterality Blood BLOOD SPECIMEN / Butterfly / 03/20/2022 7:20 AM 03/20 7:40 Unknown Unknown CDT AM CDT Alex Livingston MD CHEMISTRY Performing Organization Address City/State/ZIP Code Phon e Number [facility] [address] [place] [address] LABORATORY-CENTRAL 2000 LABORATORY SCAN-CT INTERPRETATION (03/19/2022 12:00 AM CDT)Only the most recent of2 results within the time period is included. Narrative This result has an attachment that is no t available. Scanner OTHER (ABNORMAL) COMP METABOLIC PANEL (03/10/2022 12:41 PM CDT) [facility] Method Time Signature SODIUM 140 135 - 145 03/11/2022 [facility] mmol/L 2:14 AM CDT LABORATORY-JAD TRAL LABORATORY POTASSIUM 4.6 3.5 - 5.0 03/11/2022 [facility] mmol/L 2:14 AM CDT LABORATORY-JAD TRAL LABORATORY CHLORIDE 109 98 - 110 03/11/2022 [facility] mmol/L 2:14 AM CDT LABORATORY-JAD TRAL LABORATORY CO2,TOTAL 24 21 - 31 03/11/2022 [facility] mmol/L 2:14 AM CDT LABORATORY-JAD TRAL LABORATORY ANION GAP 7 5 - 18 03/11/2022 [facility] 2:14 AM CDT LABORATORY-JAD TRAL LABORATORY GLUCOSE 91 65 - 100 03/11/2022 [facility] mg/dL 2:14 AM CDT LABORATORY-JAD TRAL LABORATORY CALCIUM 8.5 8.5 - 10.5 03/11/2022 [facility] mg/dL 2:14 AM CDT LABORATORY-JAD TRAL LABORATORY BUN 17 8 - 25 03/11/2022 [facility] mg/dL 2:14 AM CDT LABORATORY-JAD TRAL LABORATORY CREATININE 0.86 0.72 - 03/11/2022 [facility] 1.25 mg/dL 2:14 AM CDT LABORATORY-JAD TRAL LABORATORY BUN/CREAT RATIO 20 10 - 20 03/11/2022 [facility] 2:14 AM CDT LABORATORY-JAD TRAL LABORATORY ALBUMIN 3.4 3.2 - 4.6 03/11/2022 [facility] g/dL 2:14 AM CDT LABORATORY-JAD TRAL LABORATORY PROTEIN,TOTAL 6.1 6.0 - 8.0 03/11/2022 [facility] g/dL 2:14 AM CDT LABORATORY-JAD TRAL LABORATORY GLOBULIN 2.7 2.0 - 3.7 03/11/2022 [facility] g/dL 2:14 AM CDT LABORATORY-JAD TRAL LABORATORY A/G RATIO 1.3 1.0 - 2.0 03/11/2022 [facility] 2:14 AM CDT LABORATORY-JAD TRAL LABORATORY BILIRUBIN,TOTAL 0.3 0.2 - 1.2 03/11/2022 [facility] mg/dL 2:14 AM CDT LABORATORY-JAD TRAL LABORATORY ALK PHOSPHATASE 934 (H) 50 - 136 03/11/2022 [facility] IU/L 2:14 AM CDT LABORATORY-JAD TRAL LABORATORY ALT (SGPT) 11 8 - 45 03/11/2022 [facility] IU/L 2:14 AM CDT LABORATORY-JAD TRAL LABORATORY AST (SGOT) 19 2 - 40 03/11/2022 [facility] IU/L 2:14 AM CDT LABORATORY-JAD TRAL LABORATORY eGFR 88 (L) >90 03/11/2022 [facility] mL/min/1.7 2:14 AM CDT LABORATORY-JAD 3m2 TRAL LABORATORY Comment: As of 2021, eGFR is calcu lated by the CKD-EPI creatinine equation without race adjustment. eGFR can be inf luenced by muscle mass, exercise, and diet. The reported eGFR is an estimation only and is only applicable if the renal function is stable. Specimen Anatomical Collection Method / Collection Time Recei jennifer Time (Source) Location / Volume Laterality Blood BLOOD SPECIMEN / Venipuncture / 03/10/2022 12:41 03/10 Unknown Unknown PM CDT 12:41 PM CDT Niesha THURSTON CHEMISTRY Performing Organization Address [facility] Phon e Number [facility] [address] [place] [address] LABORATORY-CENTRAL 2000 LABORATORY (ABNORMAL) PSA TOTAL SCREEN (03/10/2022 12:41 PM CDT) Analysis Performed At Path logist Time Signature PSA TOTAL 4.94 (H) <4.00 03/11/2022 [facility] Lexara (SCREEN) ng/mL 2:24 AM CDT LABORATORY-JAD TRAL LABORATORY Specimen Anatomical Collection Method / Collection Time Recei jennifer Time (Source) Location / Volume Laterality Blood BLOOD SPECIMEN / Venipuncture / 03/10/2022 12:41 03/10 Unknown Unknown PM CDT 12:41 PM CDT Narrative [facility] LABORATORY-CENTRAL LABORAT ORY - 03/11/2022 2:24 AM CDT The [employer] PSA assay is a Chemiluminescent Microparticle Immunoassay(CMIA). Assay values ob tained with different assay methods dylan ot be used interchangeably due to differences in assay methods and reagent specificity. Niesha THURSTON LABORATORY Performing Organization Address City/[facility] Code Phon e Number [facility] [address] [place] [address] [place] [address] LABORATORY-CENTRAL 2000 LABORATORY SCAN-EYE EXAM (02/27/2022 12:00 AM CDT) Narrative This result has an attachment that is no t available. Scanner OTHER from Last 3 Months Insurance Payer Benefit Plan / Subscriber ID Effective Dates Phone Addre ss Type Group MEDICARE PART A MEDICARE PART A [id number] 2022-Presen ATTN: CLAIMS - HB USE ONLY HB ONLY t [address] [place] [address] HUMANA PPS HC HUMANA PPS [id number] 2018-Present [address] [address] [place] [address] HU[employer]NA GOLD MR HUMANA CHOICE [id number] 2018-Present [address] [address] [place] [address]) [place] [address] Sandip Montano Sr Personal/Family Self [address] ([address] [place] [address] Sandip Montano Sr Workers Comp Self [address] (Home) W [phone] [place] ([place]) [address] [employer] Employer [address] [place] (Home) [place] [address] Advance Directives Latest Code Status on File Code Status Date Activated Date Inactivated Comments Full Code 04/11/2022 9:37 AM 04/11/2022 1:57 PM Code Status Discussion: Reviewed Preferences Full Code 03/20/2022 2:57 AM 03/25/2022 7:25 PM Code Status Discussion: Discussed Care Teams Process Trainer Relationship Specialty Start Date End Date Niesha Mariscal PA PCP - General Physician [employer] H[employer]amer 07/04/21 [address] [place] [address] [facility] [place] [address]
[2022-04-28 10:03] VITALS: O2SAT 93
[2022-04-28 10:04] LABS: Lactate* 1.3 mmol/L (0.5-1.9)
[2022-04-28 10:07] LABS: Basophils Absolute Auto 0.02 K/uL (0.00-0.30); Basophils Percent Auto 0.2 % (0.0-3.0); Eosinophils Percent Auto 3.4 % (0.0-7.0); Hematocrit 40.6 % (37.0-53.0); Hemoglobin* 13.1 gm/dL (13.5-17.5); Immature Granulocytes Abs Auto 0.01 K/uL (0.00-0.30); Lymphocytes Percent Auto 12.6 % (20-44); Mean Corpuscular HGB Conc 32 gm/dL (32-36); Mean Corpuscular Hemoglobin 32 pg (26-34); Mean Corpuscular Volume 99 fL (80-100); Monocytes Percent Auto 9.7 % (0.0-11.0); Platelet Count* 202 K/uL (140-440); RDW Coefficient of Variation % 15.5 % (11.5-15.5); White Blood Count* 8.86 K/uL (4.50-11.00)
[2022-04-28 10:12] LABS: Slide Review Reflex No
[2022-04-28 10:21] LABS: Albumin* 3.1 g/dL (3.3-5.0); Chloride* 106 mmol/L (96-114); Potassium* 3.8 mmol/L (3.6-5.1); Sodium* 139 mmol/L (135-149)
[2022-04-28 10:23] LABS: Creatinine* 0.8 mg/dL (0.5-1.5); Est. Creatinine Clearance* 47.65; Estimated Glomerular Filt Rate 90 ml/min
[2022-04-28 10:24] LABS: Alanine Aminotransferase* 9 U/L (4-50); Alkaline Phosphatase* 966 U/L (40-150); Aspartate Amino Transferase* 20 U/L (12-35); Bilirubin Direct* 0.1 mg/dL (0.0-0.5); Bilirubin Total* 0.5 mg/dL (0.1-1.5); Blood Urea Nitrogen* 14 mg/dL (7-30); Carbon Dioxide* 28 mmol/L (20-32); Glucose* 93 mg/dL (60-115)
[2022-04-28 10:25] LABS: Calcium* 8.3 mg/dL (8.4-10.6)
--- NOTE | 2022-04-28 10:35 | ED_ITS ---
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 Patient has been using home oxygen at night 3 L continuously. He does take that off during the day. For the last 2 days he states that he cannot lay down at night due to increasing shortness of breath and he has been using his oxygen continuously during the day. His daughter states that his oxygen saturation dropped to 86% on room air. He denies any fever, cough. He does have lower extremity swelling which has been present for quite some time now. He does not think that it is getting worse. He denies any sick contacts that he is aware of. He describes feeling short of breath at rest, but states that it is very pronounced with minimal physical activity. Related Data Home Medications Medication Instructions Recorded Confirmed finasteride 5 mg tablet 5 mg PO QDAY 04/22/22 04/22/22 [id number] 250 mg-dha 90 1 cap PO QAM 04/22/22 04/22/22 mg-epa 160 [id number] capsule (Ocuvite Adult 50 Plus) naproxen sodium 220 mg tablet 220 - 440 mg PO DAILY PRN 04/22/22 04/24/22 (Aleve) tamsulosin 0.4 mg capsule 0.4 mg PO DAILY 04/22/22 04/24/22 Previous Rx's Medication Instructions Recorded ondansetron 4 mg disintegrating 4 mg PO Q6H PRN nausea #30 tabs 04/25/22 tablet prochlorperazine maleate 5 mg 5 mg PO Q6H PRN nausea #30 tabs 04/25/22 tablet furosemide 20 mg tablet (Lasix) 10 mg PO DAILY 4 days #2 tabs 04/28/22 Allergies Allergy/AdvReac Type Severity Reaction Status Date / Time lisinopril Allergy Verified 04/24/22 12:07 Review of Systems Status of ROS: Reports: 10 or more systems reviewed and unremarkable except as noted in History and below [facility] Medical History Cancer HTN (hypertension) 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 Tobacco abuse Social History Highest level of school completed/degree received: 7th grade Smoking Status: Former smoker What tobacco products do you use: cigarettes Smoking quit date/years: <= 15 years ago Do you use any of these nicotine containing products: None Second hand tobacco smoke exposure: No How often do you have a drink containing alcohol: 4 or more times a week Alcohol type: hard liquor Alcohol type details: patricia How many standard drinks containing alcohol do you have on a typical day: 3 or 4 How often do you have six or more drinks on one occasion: Never AUDIT-C Alcohol total score: 5 Non-prescribed substance use: denies use Caffeine: No Exam Narrative: Exam Narrative: Very thin, elderly patient in no acute distress. Alert and oriented. Answers questions appropriately. Thoughts are goal oriented and rational. No tangential or magical thinking noted. HEENT: Normocephalic atraumatic. Pupils are equally round reactive to light. Extraocular muscles are intact. Conjunctivae are moist without any icterus noted. Moist mucous membranes. Neck is supple. Cardiovascular: Heart is regular rate and rhythm S1 and S2 are present. Lungs: Decreased breath sounds bilaterally left greater than the right. Abdomen: Soft and nontender nondistended with normal bowel sounds. No guarding or rebound. Extremities: Bilateral lower extremities show 2+ pitting edema. Skin: Well perfused without any obvious rashes. Const: Vital Signs, click to edit/add: Vital Signs - 24 hr 04/28/22 09:25 04/28/22 10:03 04/28/22 12:00 Temperature 97.4 F L Pulse Rate [Pulse Oximeter] 65 69 Respiratory Rate 22 22 Blood Pressure [Ri ght Upper Arm] 159/90 H 144/74 H Pulse Oximetry 93 91 Oxygen Delivery Me thod Nasal Cannula Nasal Cannula Oxygen Flow Rate 3 Course Course Hospital Course: Labs were drawn-CBC fairly unremarkable. Chemistries unremarkable. Alkaline phosphatase elevated at 966 remainder of LFTs normal. Troponin was negative. BNP 520. Chest x-ray showed persistent pleural effusions however no increase from previous CT scan. EKG did not show acute ST changes. IV was established and patient received 20 mg of IV Lasix. Vital Signs Vital signs: Initial Vital Signs Temperature 97.4 F L 04/28/22 09:25 Temperature Source Temporal Artery Scan 04/28/22 09:25 Pulse Rate 65 04/28/22 09:25 Pulse Rhythm 04/28/22 09:25 Respiratory Rate 22 04/28/22 09:25 Blood Pressure 159/90 H 04/28/22 09:25 Blood Pressure Mean 113 04/28/22 09:25 Blood Pressure Position Sitting 04/28/22 09:25 Oxygen Delivery Method 04/28/22 09:25 Oxygen Flow Rate 3 04/28/22 09:25 Vital Signs Temperature 97.4 F L 04/28/22 09:25 Pulse Rate 65 04/28/22 09:25 Respiratory Rate 22 04/28/22 09:25 Blood Pressure 159/90 H 04/28/22 09:25 Oxygen Delivery Method 04/28/22 09:25 Oxygen Flow Rate 3 04/28/22 09:25 Temperature 97.4 F L 04/28/22 09:25 Pulse Rate 69 04/28/22 12:00 Respiratory Rate 22 04/28/22 12:00 Blood Pressure 144/74 H 04/28/22 12:00 Pulse Oximetry 91 04/28/22 12:00 Oxygen Delivery Method 04/28/22 12:00 Oxygen Flow Rate 3 04/28/22 09:25 Medical Decision Making MDM Narrative Medical decision making narrative: 81-year-old male with metastatic adenocarcinoma, bilateral pleural effusions, emphysema, presenting with increased shortness of breath. At this point I do not see any evidence of infection or heart disease. I do think that this is likely a progression of his disease. Recommend daily Lasix for another 3 days and follow up with primary care. Recommend returning to the ER if he develops fever or worsening symptoms. Patient was agreeable and had no other questions. Medical Records Medical records reviewed: Yes I reviewed the patient's medical records Lab Data Lab results reviewed: Yes I reviewed the patient's lab results Labs: Lab Results 04/28/22 04/28/22 04/28/22 Range/Units 09:55 09:55 09:55 WBC 8.86 (4.50-11.00) K/uL RBC 4.10 L (4.30-5.90) m/uL Hgb 13.1 L (13.5-17.5) gm/dL Hct 40.6 (37.0-53.0) % MCV 99 (80-100) fL MCH 32 (26-34) pg MCHC 32 (32-36) gm/dL RDW Coeff of Sukhwinder 15.5 (11.5-15.5) % Plt Count 202 (140-440) K/uL Neut % (Auto) 74.0 H (42.0-72.0) % Lymph % (Auto) 12.6 L (20-44) % [place] % (Auto) 9.7 (0.0-11.0) % Eos % (Auto) 3.4 (0.0-7.0) % Baso % (Auto) 0.2 (0.0-3.0) % Neut # (Auto) 6.60 (1.7-7.0) K/uL Lymph # (Auto) 1.10 (0.90-2.90) K/uL [place] # (Auto) 0.90 (0.00-0.90) K/UL Eos # (Auto) 0.30 (0.00-0.50) K/uL Baso # (Auto) 0.02 (0.00-0.30) K/uL Abs Immat Gran (auto) 0.01 (0.00-0.30) K/uL Sodium 139 (135-149) mmol/L Potassium 3.8 (3.6-5.1) mmol/L Chloride 106 (96-114) mmol/L Carbon Dioxide 28 (20-32) mmol/L BUN 14 (7-30) mg/dL Creatinine 0.8 (0.5-1.5) mg/dL Estimated Creat Clear 47.65 Estimated GFR 90 ml/min Glucose 93 (60-115) mg/dL Lactate 1.3 (0.5-1.9) mmol/L Calcium 8.3 L (8.4-10.6) mg/dL Total Bilirubin 0.5 (0.1-1.5) mg/dL Direct Bilirubin 0.1 (0.0-0.5) mg/dL AST 20 (12-35) U/L ALT 9 (4-50) U/L Alkaline Phosphatase 966 H (40-150) U/L Troponin I < 0.01 L (0.01-0.04) ng/mL NT-Pro-B Natriuret Pep 520 H (0-450) PG/mL Total Protein 6.0 (6.0-8.3) g/dL Albumin 3.1 L (3.3-5.0) g/dL Imaging Data Chest x-ray: Attestation: I have reviewed the pertinent imaging results. Radiologist's impression: Chest 2 views COMPARISON: CT 03/19/2022 FINDINGS: Widespread metastatic disease to the osseous structures again noted. Bilateral pleural effusions, left greater than right with adjacent compressive atelectasis. Underlying COPD/emphysema. Likely similar peripheral densities bilaterally. No pneumothorax. No compression fracture. IMPRESSION: Persistent bilateral effusions and adjacent atelectasis superimposed upon COPD/emphysema and widespread metastatic disease. ECG Data Attestation: I personally reviewed and interpreted this ECG as follows: (Normal sinus rhythm, pulse 65) Discharge Plan Discharge Clinical Impression: Shortness of breath, Pleural effusion, Emphysema/COPD, Metastatic adenocarcinoma Patient Disposition: Home, Self-Care Condition: Stable Additional Instructions: Use oxygen during the day as needed. Return to the ER if you develop fever or worsening symptoms. Start daily water pill for the next 4 days and follow-up with your primary care provider. Prescriptions: New furosemide [Lasix] 20 mg tablet 10 mg PO DAILY 4 Days Qty: 2 0RF No Action finasteride 5 mg tablet 5 mg PO QDAY Label Comments: TAKE 1 TABLET (5 MG) BY MOUTH EVERY MORNING. Ocuvite Adult 50 Plus 250 mg (90 mg-160 mg) capsule 1 cap PO QAM tamsulosin 0.4 mg capsule 0.4 mg PO DAILY naproxen sodium [Aleve] 220 mg tablet 220 - 440 mg PO DAILY PRN prochlorperazine maleate 5 mg tablet 5 mg PO Q6H PRN (Reason: nausea) Qty: 30 1RF Rx Instructions: Try first for chemotherapy related nausea. ondansetron 4 mg tablet,disintegrating 4 mg PO Q6H PRN (Reason: nausea) Qty: 30 1RF Rx Instructions: Take for chemo-related nausea if compazine (prochlorperazine) ineffective. Follow Up/Referrals: Niesha Mariscal PA-C [Primary Care Provider] - Stand Alone Forms: [employer] Info Instructions
[2022-04-28 10:37] LABS: Troponin I* < 0.01 ng/mL (0.01-0.04)
[2022-04-28] MEDS: FUROSEMIDE 10 MG/ML inj 20 MG IVP (11:40)
[2022-04-28 11:49] LABS: NT Pro B Type NatriureticPept* 520 PG/mL (0-450)
[2022-04-28 12:00] VITALS: BP 144/74; PULSE 69; RESP 22; O2SAT 91
[2022-04-28 12:44] VITALS: BP 158/71; PULSE 69; RESP 18; TEMP 36.3
--- NOTE | 2022-04-28 12:48 | ED.NURSE ---
Leg bag drained of concentrated, clear urine. Pt's NC transferred to home O2 concentrator, tolerates well. VSS.
== END 2022-04-28 12:40 | disposition home or self-care (01) ==
PROVIDERS: Emergency Provider Family Medicine; PCP Physician Assistant Medical
DX: J90 Pleural effusion, not elsewhere classified (principal); J44.9 Chronic obstructive pulmonary disease, unspecified; J43.9 Emphysema, unspecified
CPT/HCPCS: 36415; 71046; 80048; 80076; 83605; 83880; 84484; 85025; 93005; 94761; 96374; 99284; 99285; J1940

== ENCOUNTER 2022-05-02 10:30 | Outpatient (RCR) | payer OTHER, SELFPAY ==
--- NOTE | 2022-04-25 11:53 | URNOTE ---
Received request for prior auth. Per [employer] [facility] on behalf of [facility], Fluorouracil (J9190) 3260mg x 6 cycles, Leucovorin (J0640) 650mg x 6 cycles, Oxaliplatin (J9263) 100mg x 6 cycles, and Nivolumab (J9299) 480mg x 6 cycles has been approved. 04/30/2022-07/29/2022 Auth # [id number] Palonosetron (J2469) 0.25mg x 6 cycles has been approved 04/30/2022-07/23/2021 Ref #[id number]
--- NOTE | 2022-04-29 13:41 | ONC.NURNOTE ---
Patient's daughter Gissel called to let [facility] know that patient didn't have port placed on 04/28/2022 due to SOB and patient actually ended up in ED that day. Port placement rescheduled for 05/06 at 1100 [employer] Coating Machine Operator contacted daughter and patient to let them know that chemo rescheduled for May 12 at 0900 and also suggested patient get COVID test on Thursday the April and then stop in for a blood test (liquid biopsy) same day. Gissel will calll [facility] and schedule lab draw when patient arrives. Should also maybe have baseline labs at that time if not done yet.
--- NOTE | 2022-04-29 13:49 | ONC.NURNOTE ---
Addendum: Labs done in ED 04/28/2022
--- NOTE | 2022-05-02 11:26 | ONC.NURNOTE ---
Patient in for COVID swab at Clinic for port placement on ThursdayMay 06 and then came to [facility] for a peripheral lab draw for a liquid biopsy. Liquid biopsy sent out via [id number] number in chart
== END 2022-05-07 23:59 | disposition home or self-care (01) ==
LOC: CCIC 10:30
PROVIDERS: PCP Family Medicine; Referring Provider Family Medicine; Visit Provider Internal Medicine Hematology & Oncology
DX: C79.51 Secondary malignant neoplasm of bone (principal)
CPT/HCPCS: 99203; 99205

== ENCOUNTER 2022-05-06 14:09 | Observation (INO) | payer OTHER, SELFPAY ==
[2022-05-06] VITALS (27 sets, daily range): BP systolic 86–173; BP diastolic 64–95; PULSE 64–118; RESP 16–22; TEMP 36.1–37; O2SAT 87–97; BMI 19.6; BMI 18.9
--- NOTE | 2022-05-06 07:14 | CRLHL7_ITS ---
For Patients: As a result of the Century Cures Act, medical imaging exams and procedure reports are released immediately into your electronic medical record. You may view this report before your referring provider. If you have questions, please contact your health care provider. Indication: port cath placement Technique: Three fluoroscopic spot images of the chest submitted. Fluoroscopic time 68.9 seconds. IMPRESSION: Fluoroscopic guidance for Port-A-Cath placement. Dictated by Jesús Holley MD @ 05/06/2022 9:47:11 AM (Electronically Signed)
[2022-05-06] MEDS: SODIUM CHLORIDE 0.9 % (FLUSH) 10 ML SYRINGE IVF ×2 (07:17→08:10)
[2022-05-06] MEDS: LACTATED RINGERS 1000 ML 1,000 ML 100 ML IV ×2 (07:18→10:56)
[2022-05-06] MEDS: CEFAZOLIN 2 GM INJ IVP (07:40)
[2022-05-06] MEDS: BUPIVACAINE 0.25% 30 ML INJECTION (07:50)
[2022-05-06] MEDS: HEPARIN 500 UNIT/5 ML SYRINGE IVF (08:10)
--- NOTE | 2022-05-06 08:35 | W.ANESCHARGE ---
Anesthesia Charges Start Date/Time Anesthesia Start Date: 05/06/22 Anesthesia Start Time: 07:29 Stop Date/Time Anesthesia Stop Date: 05/06/22 Anesthesia Stop Time: 08:33 Summary Emergency: No Extremes of Age: Over 72-CPT 91621
--- NOTE | 2022-05-06 08:38 | CRLHL7_ITS ---
For Patients: As a result of the Century Cures Act, medical imaging exams and procedure reports are released immediately into your electronic medical record. You may view this report before your referring provider. If you have questions, please contact your health care provider. INDICATION: s/p left IJ port placement TECHNIQUE: Chest 1 view COMPARISON: 04/28/2022 FINDINGS: Widespread blastic metastatic prostate cancer again noted. Bilateral pleural effusions, left greater than right, slightly increased with fluid tracking along the fissure on the right. No pneumothorax. Coarsening of the interstitium is similar. Left IJ catheter placement with the tip at the caval atrial junction. Dependent atelectasis bilaterally. IMPRESSION: Left IJ Port-A-Cath placement without pneumothorax. Dictated by Jesús Holley MD @ 05/06/2022 9:25:39 AM (Electronically Signed)
--- NOTE | 2022-05-06 08:44 | PM.GSCN ---
History of Present Illness Consult details Date Seen: 05/06/22 Consult date: 05/06/22 Narrative: 81-year-old male was recently diagnosed with metastatic esophageal cancer. He was seen by Oncology and chemotherapy was recommended. Patient presents now for Port-A-Cath placement. patient denies any illnesses, open sores, or new rashes. He has never had any procedures done on his neck. Patient was recently hospitalized at [facility] related to his new diagnosis. He was on oxygen while in the hospital and off oxygen only for about a week. He is currently on 3 L of oxygen at home at all times. Patient's recent chest x-ray on 04/28/2022 showed emphysematous lung changes bilaterally. There was also evidence of bilateral pleural effusions left more than right. In the last several months patient had lost over 100 lb. Patient also has a chronic Spangler catheter that was replaced a few weeks ago. Review of Systems Narrative: General: no fevers HENT: +problems swallowing CV: + shortness of breath, Patient does not move a lot due to shortness of breath. Resp: no cough GI: No abdominal pain : no dysuria, no increased urinary frequency, no hematuria Skin: no new rashes Musculoskeletal: no back pain Neuro: Overall fairly weak. 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 Tobacco abuse Surgical History (Updated 05/06/22 @ 06:21 by Alicia Prather RN) Hx laparoscopic cholecystectomy Social History (Updated 04/28/22 @ 12:25 by Maureen Sherman MD) Highest level of school completed/degree received: 7th grade Smoking Status: Former smoker What tobacco products do you use: cigarettes Smoking quit date/years: <= 15 years ago Do you use any of these nicotine containing products: None Second hand tobacco smoke exposure: No How often do you have a drink containing alcohol: 4 or more times a week Alcohol type: hard liquor Alcohol type details: patricia How many standard drinks containing alcohol do you have on a typical day: 3 or 4 How often do you have six or more drinks on one occasion: Never AUDIT-C Alcohol total score: 5 Non-prescribed substance use: denies use Caffeine: No Meds Home Medications and Allergies Home Medications Medication Instructions Recorded Confirmed Type finasteride 5 mg tablet 5 mg PO QDAY 04/22/22 05/06/22 History [id number] 250 mg-dha 90 1 cap PO QAM 04/22/22 05/06/22 History mg-epa 160 fz-klrh-exab-zeax capsule (Ocuvite Adult 50 Plus) naproxen sodium 220 mg tablet 220 - 440 mg PO DAILY PRN 04/22/22 05/06/22 History (Aleve) tamsulosin 0.4 mg capsule 0.4 mg PO DAILY 04/22/22 05/06/22 History Allergies Allergy/AdvReac Type Severity Reaction Status Date / Time lisinopril Allergy Verified 04/24/22 12:07 Exam Narrative: Exam Narrative: General appearance: Alert, cooperative, and in no distress, emaciated neck: No surgical scars. No open wounds. Pulmonary: Chest symmetric, lungs clear bilaterally Cardiovascular Heart: Regular rate and rhythm, S1, S2, no murmurs/rubs/gallops Gastrointestinal Abdominal: not distended Extremities: A Spangler bag attached to the right leg. Skin: Normal skin color, texture, and turgor. No rashes or lesions. Const: Vital Signs, click to edit/add: Vital Signs - 24 hr 05/06/22 07:28 Temperature 97.6 F Pulse Rate 64 Respiratory Rate 22 Blood Pressure 147/84 H Pulse Oximetry 94 Oxygen Delivery Me thod Nasal Cannula Oxygen Flow Rate 4 Results Labs Labs: All other labs normal. Imaging Chest x-ray: report reviewed and image reviewed CT scan - chest: report reviewed and image reviewed Assessment and Plan Assessment and plan (1) Metastatic adenocarcinoma: Status: Acute Plan 81-year-old male with Emphysema on home oxygen and metastatic adenocarcinoma of most likely esophagus who presents for Port-A-Cath placement for upcoming chemotherapy treatment. I discussed with the patient and his daughter the procedure Port-A-Cath placement. I do not see any contraindications for this procedure today. The risks associated the procedure including infection, bleeding, and pneumothorax were all discussed with the patient, and he agreed to proceed.
--- NOTE | 2022-05-06 08:50 | P.GSOP_ITS ---
Operative Note Date of procedure: 05/06/22 Type of Procedure: 1. Left internal jugular Port-A-Cath placement under ultrasound and fluoroscopy guidance. Procedure Description: After discussing the risks and benefits of the procedure, the patient signed informed consent.? The operative site was marked and the patient was brought to the operating room and placed on the operating table in supine position.? Care was taken to pad the patient's pressure points.?? The patient was then sedated] by anesthesia.?? The operative site was then prepped and draped in the usual sterile fashion.? A time-out was then performed. Ultrasound was brought on to the field and a right internal jugular vein was examined. I was not able to identify a compressible vein. This was suspicious for a clot in the right internal jugular vein. I then examined the left in ternal jugular vein with the ultrasound. This vein was found to be easily compressible overlying the left carotid artery. The base of the neck directly overlying the internal jugular vein was then anesthetized with 1% lidocaine and 0.25% Marcaine mixture, and an introducer needle was inserted into the internal jugular vein using ultrasound guidance. Entry into the vein was confirmed by the presence of dark, nonpulsatile blood. A guide wire was advanced through the needle. The introducer needle was removed, leaving the wire in place. Fluoroscopy was brought onto the field and used to confirm the passage of the wire through the superior vena cava and into the inferior vena cava. Lidocaine was then used to infiltrate the port skin site, along with the proposed tunneling tract. A 3 cm incision was made at the site of the port pocket and subcutaneous tissue was dissected down using electrocautery. Subcutaneous pocket was created with blunt dissection and electrocautery. The catheter was advanced through the subcutaneous tissue using a tunneling trocar, exiting the incision at the base of the neck. The trocar was then disconnected. Fluoroscopy was again brought on to the field and the internal jugular vein and adjacent subcutaneous tissue was dilated with a pre-split introducer sheath in place. The wire was removed and the catheter was inserted into the introducer sheath. As the catheter was advanced, the sheath was split and divided, removing the sheath as the catheter was advanced into place. Fluoroscopy was again brought on to the field and the catheter position was examined. The entire course of the catheter was then viewed, and catheter was pulled back under direct visualization to ensure that the tip is in the SVC. The port was connected to the catheter tip and placed into previously created pocket. Prolene was used to place anchoring port sutures and the port was then secured in the pocket. The flow through the catheter was checked with a syringe, and found to be excellent. The incision at the base of the neck was then closed with interrupted 4-0 monocryl stitches and dressed with a Steri-Strip and a sterile bandage. Subdermal layer was re-approximated with interrupted 3-0 vicryl stitches and skin over the port was closed with 4-0 monocryl using subcuticular stitch. Morillo needle was inserted through the skin into the port and the port was flushed with heparinized saline. The needle was then removed. Steri strips, sterile 2x2 and Tegaderm was applied over the incision. The patient was then roused and brought to same day surgery in satisfactory condition. Sponge and needle counts were correct at the end of the procedure. Post procedure CXR was ordered to be done in same day surgery. ? The patient tolerated the procedure well. Findings: Possible clot in the right internal jugular vein since the vein was not easily identified. Anesthesia: MAC and local Surgeon: Marcelle Diallo MD Estimated blood loss (mL): 10 Condition: stable Disposition: same day
--- NOTE | 2022-05-06 09:04 | W.ANESCHARGE ---
Anesthesia Charges Start Date/Time Anesthesia Start Date: 05/06/22 Anesthesia Start Time: 07:29 Stop Date/Time Anesthesia Stop Date: 05/06/22 Anesthesia Stop Time: 08:33 Summary Emergency: No Extremes of Age: Over 72-CPT 17629
[2022-05-06] MEDS: ACETAMINOPHEN 325 MG TABLET 650 MG PO (12:02)
[2022-05-06 13:34] LABS: HCO3 VBG 31 mmol/L (21-28); PCO2 VBG 54 mmHG (40-50); PO2 VBG 28.9 mmHG (25-47); pH VBG 7.361 (7.32-7.43)
[2022-05-06 13:49] LABS: Basophils Absolute Auto 0.03 K/uL (0.00-0.30); Basophils Percent Auto 0.3 % (0.0-3.0); Eosinophils Percent Auto 2.2 % (0.0-7.0); Hematocrit 37.9 % (37.0-53.0); Hemoglobin* 12.3 gm/dL (13.5-17.5); Immature Granulocytes Abs Auto 0.05 K/uL (0.00-0.30); Lymphocytes Percent Auto 10.2 % (20-44); Mean Corpuscular HGB Conc 33 gm/dL (32-36); Mean Corpuscular Hemoglobin 33 pg (26-34); Mean Corpuscular Volume 100 fL (80-100); Neutrophils Percent Auto 75.8 % (42.0-72.0); Platelet Count* 202 K/uL (140-440); RDW Coefficient of Variation % 15.6 % (11.5-15.5); Red Blood Count 3.78 m/uL (4.30-5.90); White Blood Count* 9.26 K/uL (4.50-11.00)
[2022-05-06 13:51] LABS: Slide Review Reflex No
[2022-05-06 13:52] LABS: Chloride* 105 mmol/L (96-114); Potassium* 4.1 mmol/L (3.6-5.1)
[2022-05-06 13:55] LABS: Creatinine* 0.7 mg/dL (0.5-1.5); Est. Creatinine Clearance* 47.78; Estimated Glomerular Filt Rate 94 ml/min
[2022-05-06 13:56] LABS: Blood Urea Nitrogen* 17 mg/dL (7-30); Calcium* 8.2 mg/dL (8.4-10.6); Carbon Dioxide* 28 mmol/L (20-32); Glucose* 107 mg/dL (60-115)
[2022-05-06 14:08] LABS: C Reactive Protein* < 0.5 mg/dL (0.5-1.0)
[2022-05-06 14:20] LABS: Troponin I* < 0.01 ng/mL (0.01-0.04)
[2022-05-06 14:21] LABS: Sodium* 138 mmol/L (135-149)
--- NOTE | 2022-05-06 14:23 | CRLHL7_ITS ---
For Patients: As a result of the Century Cures Act, medical imaging exams and procedure reports are released immediately into your electronic medical record. You may view this report before your referring provider. If you have questions, please contact your health care provider. Indication: Shortness of breath, dyspnea on exertion Technique: Volumetric multidetector CT images of the chest were obtained after the administration of IV contrast. 95 cc Isovue-300 low osmolar intravenous contrast Comparison: CT chest with contrast March 19, 2022 Findings: There is demonstration of a left-sided Port-A-Cath in satisfactory position with minimal subcutaneous emphysema from recently placed port. The thoracic aorta is nonaneurysmal. There is no central filling defect to suggest pulmonary embolism. There are enlarged mediastinal and hilar lymph nodes similar to previous exam. There is mild to moderate central bronchial thickening with mucoid impaction of the lower lobe bronchi. There are moderate loculated bilateral pleural effusions with adjacent compressive atelectasis and/or infiltrates with moderate to severe centrilobular emphysematous changes of the upper lobes with peripheral interstitial and airspace opacities likely representing edema and/or developing infiltrates. There is no evidence of pulmonary mass or suspicious pulmonary nodule. The partially visualized upper abdominal viscera are within normal limits. There is extensive osseous blastic metastasis seen throughout the axial and appendicular skeleton with dense sclerotic changes seen throughout similar to previous exam. Impression: Interval placement of a left-sided Port-A-Cath in satisfactory position with minimal subcutaneous emphysema. Increasing bilateral pleural effusions left greater than right with adjacent compressive atelectasis versus infiltrates. Moderate to severe emphysematous changes with increasing peripheral interstitial and airspace opacities likely representing infiltrates or edema. Extensive osseous metastasis is appreciated throughout the axial and appendicular skeleton, similar to previous exam. Please note that all CT scans at this facility use dose modulation, iterative reconstruction, and/or weight-based dosing when appropriate to reduce radiation dose to as low as reasonably achievable. Dictated by Diogo Olvera MD @ 05/06/2022 3:48:20 PM (Electronically Signed)
--- NOTE | 2022-05-06 14:24 | SUR.PHASEII ---
Patient's oxygen sats dropping with any activity (eating, moving, talking) into the high 70's after surgery on 3L per nasal cannula, which is his normal oxygen at home. This did improve into the 80's after some time but patient continued to c/o feeling short of breathe even while just sitting in recliner. Dr. Diallo was notified and she had respiratory therapy and the hospitalist come and assess the patient. The hospitalist made the decision to admit the patient for observation and further work up. Patient was brought to med/surg via wheelchair and report was given to the med/surg nurse.
--- NOTE | 2022-05-06 14:37 | PM.IMHP1 ---
Hospitalist- H&P: HPI History of Present Illness Time Seen by Provider: 12:25 Date Seen: 05/06/22 Chief complaint: surgery Narrative: This is a 81-year-old male who underwent Port-A-Cath placement today and was noted to be significantly hypoxic with activity. He and his daughter note that he has been having worsening shortness of breath especially with activity over the last week to 2 weeks. What he is experiencing postoperatively is not new. He is on oxygen at home at 3 L via nasal cannula, but this does not seem to be enough with activity especially. Also has trouble at night. He will often call his son to come over and feels better once his son gets there. He has a 50 pack-year smoking history and started having shortness of breath and weight loss in February. He had a thoracentesis done at the 20 of March and cytology was positive for metastatic adenocarcinoma suggestive of GI origin, CK7 positive CD 20 positive. He had a bone biopsy of the right iliac bone metastasis positive for metastatic carcinoma he had an EGD on 04/11/2022 positive for poorly differentiated adenocarcinoma, HER2 negative by IHC. Established with Oncology at [facility] on 04/22/2022 and was interested in pursuing treatment. He is hoping to start on 5 FU/oxaliplatin/nivolumab. In preparation for that he is getting a port. He was supposed to get the port done last week, but had to call and reschedule the surgery because he was not feeling well last week. He continues to feel significantly short of breath and that has only worsened. He did stop smoking in February. Review of Systems Const: Reports: fatigue and malaise; Denies: fever or chills Eyes: Denies: change in vision Cardio: Reports: swelling of feet/ankles, shortness of breath with exertion, shortness of breath when lying down and bluish discoloration of hands/feet; Denies: chest pain, palpitations, lightheadedness or leg pain with exertion Resp: Reports: shortness of breath and cough; Denies: wheezing, stridor, pain on inspiration, coughing up blood or chest congestion GI: Denies: abdominal pain Musculo: Reports: back pain Integ/Breast: Denies: rash Neuro: Denies: headache, dizziness, confusion or behavioral changes Psych: Reports: anxiety (about breathing, getting enough oxygen) Endo: Reports: fatigue Alex/Lymph: Denies: easy bruising Allergy/Immuno: Denies: wheezing PFSH PFSH Medical History (Updated 05/06/22 @ 16:56 by Nikkie Fuller MD) Bilateral hydronephrosis BPH (benign prostatic hyperplasia) Chemotherapy management, encounter for Elevated PSA Emphysema/COPD H/O echocardiogram Hernia HTN (hypertension) Hydrocele 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 Smoked 0.5 ppd, no chewing tobacco, quit smoking 03/13/2022. EtOH 10 shots liquor per week. Highest level of school completed/degree received: 7th grade Smoking Status: Former smoker What tobacco products do you use: cigarettes Smoking quit date/years: <= 15 years ago Do you use any of these nicotine containing products: None Second hand tobacco smoke exposure: No How often do you have a drink containing alcohol: 4 or more times a week Alcohol type: hard liquor Alcohol type details: patricia How many standard drinks containing alcohol do you have on a typical day: 3 or 4 How often do you have six or more drinks on one occasion: Never AUDIT-C Alcohol total score: 5 Non-prescribed substance use: denies use Caffeine: No service: No Meds Home Medications and Allergies Home Medications Medication Instructions Recorded Confirmed Type finasteride 5 mg tablet 5 mg PO DAILY 04/22/22 05/06/22 History naproxen sodium 220 mg tablet 220 - 440 mg PO DAILY PRN 04/22/22 05/06/22 History (Aleve) tamsulosin 0.4 mg capsule 0.4 mg PO DAILY 04/22/22 05/06/22 History Allergies Allergy/AdvReac Type Severity Reaction Status Date / Time lisinopril Allergy Verified 04/24/22 12:07 Exam Narrative: Exam Narrative: General: No acute distress. Sleeping, arousable, oriented x3. Thin, gaunt, frail. Loose fitting clothes. HEENT: Normocephalic atraumatic, pupils equally round and reactive to light and accommodation. Oropharynx clear. Mucous membranes are moist. No cervical lymphadenopathy, thyromegaly or carotid bruits. No JVD. Cardiovascular: Regular rate and rhythm. No murmurs, gallops, or rubs. Chest: No increased work of breathing at rest. Clear to auscultation bilaterally. No crackles or wheezes. Not tight, good air movement bilaterally. Diminished at bases bilaterally. Abdomen: Bowel sounds present. Soft, protuberant, nontender. No hepatosplenomegaly or masses. Extremities: Doughy pitting edema edema bilateral lower extremities to upper thighs, slow capillary refill with mottling of both feet. Skin: No jaundice, no pallor, no rashes. Neuro: Moves all extremities. Const: Vital Signs, click to edit/add: Vital Signs - 24 hr 05/06/22 07:28 05/06/22 08:42 05/06/22 08:56 Temperature 97.6 F 97.5 F L Pulse Rate 64 98 90 Respiratory Rate 22 20 20 Blood Pressure 147/84 H 86/64 L 99/73 Pulse Oximetry 94 97 94 Oxygen Delivery Me thod Nasal Cannula Nasal Cannula Nasal Cannula Oxygen Flow Rate 4 3 3 05/06/22 09:06 05/06/22 09:20 05/06/22 09:35 Temperature Pulse Rate 78 89 74 Respiratory Rate 18 20 20 Blood Pressure 126/79 126/79 137/81 Pulse Oximetry 93 89 88 Oxygen Delivery Me thod Nasal Cannula Nasal Cannula Nasal Cannula Oxygen Flow Rate 3 3 3 05/06/22 09:54 05/06/22 10:43 05/06/22 10:15 Temperature 97.4 F L 97 F L Pulse Rate 68 72 72 Respiratory Rate 22 Blood Pressure 133/80 161/93 H Pulse Oximetry 91 90 88 Oxygen Delivery Me thod Nasal Cannula Nasal Cannula Nasal Cannula Oxygen Flow Rate 3 3 3 05/06/22 11:30 05/06/22 11:55 05/06/22 12:18 Temperature Pulse Rate 77 80 74 Respiratory Rate 22 Blood Pressure Pulse Oximetry 88 89 95 Oxygen Delivery Me thod Nasal Cannula Nasal Cannula Nasal Cannula Oxygen Flow Rate 3 3 4 05/06/22 12:29 05/06/22 13:00 05/06/22 13:15 Temperature Pulse Rate 76 68 70 Respiratory Rate 22 20 20 Blood Pressure 134/72 Pulse Oximetry 88 88 87 L Oxygen Delivery Me thod Nasal Cannula Nasal Cannula Nasal Cannula Oxygen Flow Rate 2 2 2 Documenting provider has reviewed patient's vital signs: yes Hospitalist - H&P: Result Labs Labs: Short CBC 05/06/22 Range/Units 13:20 WBC 9.26 (4.50-11.00) K/uL Hgb 12.3 L (13.5-17.5) gm/dL Hct 37.9 (37.0-53.0) % Plt Count 202 (140-440) K/uL BMP 05/06/22 13:20 Sodium 138 Potassium 4.1 Chloride 105 Carbon Dioxide 28 BUN 17 Creatinine 0.7 Glucose 107 Calcium 8.2 L Cardiac Enzymes 05/06/22 Range/Units 13:20 Troponin I < 0.01 L (0.01-0.04) ng/mL ECG Attestation: I personally reviewed and interpreted this ECG as follows: (Normal sinus rhythm. 69 beats per minute. Low-voltage QRS. 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 pleural fluid c/w with GI origin adenoca. iliac crest bone biopsy was pending at discharge. d/c with oxygen and conteh catheter. Status: Acute (6) HTN (hypertension): Status: Chronic (7) H/O echocardiogram: Problem comment: 03/20/2022 9:08:44 AM Site: [facility] [place] Location: [facility] Procedure: 2D, Color Doppler and Spectral Doppler. Indication for study: LV function Cardiac Rhythm: Normal sinus.Study quality: Final Impressions: 1. Normal left ventricular size, normal wall thickness, normal global systolic function, calculated EF of 63 %. 2. Right ventricular cavity size is normal, global systolic RV function is normal. 3. Normal left atrium size. 4. The aortic valve is sclerotic, mild stenosis and trivial regurgitation. 5. The mitral valve is thickened and mild annular calcification (anterior and posterior), trace mitral regurgitation. 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 Moderate tricuspid regurgitation. 8. No pericardial effusion. Comparison There are no prior studies on this patient for comparison purposes. Status: Chronic Plan 81-year-old male widely metastatic adenocarcinoma underwent Port-A-Cath placement today and has had worsening dyspnea on exertion and nocturnal dyspnea over the last 1-2 weeks. He is significantly short of breath with any movement and this is not new after Port-A-Cath placement today. I have reviewed his medical history, medications, echocardiogram from March 2022, today's labs and EKG as well as CT chest done today. There is no PE. I do not think he is in exacerbation of COPD or heart failure. I think dyspnea is related to metastatic adenocarcinoma and bilateral pleural effusions. I spoke with Dr. Diallo from General surgery who did not think a thoracentesis would be helpful at this point. I do not think he would benefit from steroids as his emphysema seems stable and he is not tight or having any expiratory wheezing. I am not finding any infiltrates to treat. I spoke with him and his daughter about the findings and how he would likely feel short of breath no matter how much oxygen we gave him and turning up the oxygen would increase his oxygen saturations but also put him at risk for CO2 narcosis. We also discussed the possibility of hospice, but he wants to continue to pursue chemotherapeutic treatment for adenocarcinoma. He would like to try some morphine tonight to help with the feeling of shortness of breath. I have spoken with our respiratory therapist and will be working with her over the next day to determine his home oxygen needs and facilitate getting him home with oxygen according to those needs.
--- NOTE | 2022-05-06 15:38 | RESP.RT ---
Asked to se patient in SDS for low saturation. Pt did not have a reliable oximetry reading. Placed new probe above eye. Oximeter with good consistent pleth. PT on 5L of oxygen, SPo@ 95%. Pt with history of COPD. Decreased oxygen to 2L, with corresponding saturation of 92%. BBs decreased but clear. Previous CXR noted. Pt. was comfortable in no respiratory distress sitting in chair. PT RR 18. Pt stated he feels SOB. Pt does have metastatic CA, unsure of the source. Daughter reports he has gotten more short of breath in the last few weeks. Noted Pt recently had pleural effusions tapped. It appears that pt. oxygen needs are increasing, will discuss with provider, as his COPD and CA diagnosis all need to be considered for a reasonable oxygen prescription.
[2022-05-06] MEDS: MORPHINE 2 MG/ML inj IVP ×2 (17:02→19:09)
--- NOTE | 2022-05-06 18:31 | PC.NURSE ---
End of Shift: Patient arrived to the floor at 1400 by wheelchair. Patient pleasant, cooperative, but not feeling well. Patient no matter what, says he feels like he is not getting enough oxygen. Patient currently on 4 L of oxygen by OR with sats 90-91%. Patient SBA/1 assist, walker. Morphine 2 mg given once. Patient declined dinner but has eaten 2 vanilla ice creams. Patient's LE's have +2 pitting edema. Tele=NSR
[2022-05-06] MEDS: PROCHLORPERAZINE 10 MG TABLET 5 MG PO (19:22)
[2022-05-06] MEDS: HYDROCODONE-ACETAMIN 5-325 MG 1 TAB PO (19:26)
[2022-05-06] MEDS: LORazepam 2 MG/ML inj 1 MG IVP (20:53)
--- NOTE | 2022-05-06 22:15 | PC.NURSE ---
Pt mouth breather while sleeping. Oxy Mask put on in place of NC. O2 set at 3L to maintain sats @89-90.
--- NOTE | 2022-05-07 00:41 | CRLHL7_ITS ---
For Patients: As a result of the Century Cures Act, medical imaging exams and procedure reports are released immediately into your electronic medical record. You may view this report before your referring provider. If you have questions, please contact your health care provider. INDICATION: Tachycardia. TECHNIQUE: Chest 1 views. COMPARISON: May 06, 2022. FINDINGS: Cardiovascular and mediastinum: Difficult to evaluate heart size as it is obscured by moderate-sized pleural effusions. Aortic arch calcifications. Left chest wall port, terminating in the is superior cavoatrial junction. Lungs and pleural spaces: Small right-sided and moderate left-sided pleural effusions. Pulmonary edema. Bones and soft tissues: Diffuse osteoblastic metastases.. IMPRESSION: Re-demonstration of diffuse osteoblastic metastasis and small right-sided and moderate left-sided pleural effusions with pulmonary edema, mildly increased since prior study. Dictated by Antoni Hagen MD @ 05/07/2022 1:03:49 AM (Electronically Signed)
--- NOTE | 2022-05-07 01:18 | PC.NURSE ---
Pt developed Sinus Tach @ 2300. [facility]aren Chua called. Chest Xray and EKG ordered and sent to Jaren.
--- NOTE | 2022-05-07 02:00 | CRLHL7_ITS ---
For Patients: As a result of the Century Cures Act, medical imaging exams and procedure reports are released immediately into your electronic medical record. You may view this report before your referring provider. If you have questions, please contact your health care provider. INDICATION: Worsening hypoxia. Tachycardia. COMPARISON: CT angiogram of the chest from 01/04/2022 and chest radiograph from earlier today. TECHNIQUE: CT examination of the chest was performed with the uneventful intravenous administration of 60 cc of Isovue 370 while 1.5 mm thick axial sections were obtained from above the apices of the lungs through the mid renal level. Please note that all CT scans at this facility use dose modulation, iterative reconstruction, and/or weight-based dosing when appropriate to reduce radiation dose to as low as reasonably achievable. FINDINGS: : There is no sign of pulmonary embolism, with normal enhancement and branching of the pulmonary arteries. The previously seen large pleural effusions are increased in size compared to the previous CT from yesterday. The left pleural effusion continues to be larger than the right. There is increasing atelectasis of both lower lobes, now nearly complete. The previously seen aeration of the superior segments of the lower lobes is almost completely eliminated. There is also increasing atelectasis of the dependent portions of the lingula and right middle lobe. The non atelectatic lung shows increasing crowding of lung markings. Again seen is moderate right greater than left upper lobe centrilobular emphysema and mild diffuse pulmonary fibrosis throughout the rest of the chest. There is no sign of mediastinal or hilar mass or adenopathy. Again seen is the left internal jugular central line with its tip in the superior vena cava. The heart is normal in appearance for the patient`s age. There is age appropriate appearance of the thoracic aorta and ascending great vessels. There is no sign of supraclavicular or axillary mass or adenopathy. The visualized superior liver, spleen, pancreas, kidneys, and adrenals are normal in appearance. Clips are again seen in the gall bladder fossa from cholecystectomy. There is no sign of biliary ductal dilatation. The osseous structures are normal in appearance for the patient`s age. IMPRESSION: No sign of pulmonary embolism. Increase in size of large left greater than right pleural effusions compared to yesterday`s CT scan. Increased atelectasis of both lower lobes, now with near complete atelectasis. Increasing atelectasis of the dependent portions of the lingula and right middle lobe. Increasing crowding of lung markings throughout the residual aerated lung. Again seen is moderate bilateral upper lobe centrilobular emphysema and mild diffuse interstitial pulmonary fibrosis. Please note that all CT scans at this facility use dose modulation, iterative reconstruction, and/or weight-based dosing when appropriate to reduce radiation dose to as low as reasonably achievable. Dictated by Dale Dowd MD @ 05/07/2022 3:46:04 AM (Electronically Signed)
[2022-05-07 02:08] VITALS: BP 116/84; PULSE 124; RESP 16; TEMP 36.5; O2SAT 88
[2022-05-07 02:10] VITALS: BP 116/84; PULSE 124; RESP 16; TEMP 36.5; O2SAT 92
--- NOTE | 2022-05-07 02:21 | PC.NURSE ---
Jaren Chua unable to access Pt chart. CT ordered to rule out PE. No further action at this time.
--- NOTE | 2022-05-07 02:56 | PC.NURSE ---
Dr Wesley Whitaker. Called Family for Pt possible near end of life. Jaren had no access to pt chart
--- NOTE | 2022-05-07 03:01 | PM.IMPN1 ---
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 pleural fluid c/w with GI origin adenoca. iliac crest bone biopsy was pending at discharge. d/c with oxygen and conteh catheter. Status: Acute Plan [facility] Cover Note eHospitalist was contacted by nursing staff with concern of new onset tachycardia ] [The patient is a 81-year-old male who went Port-A-Cath placement today and was noted to be significantly hypoxic with activity. This is apparently been going on for the last 2 to 3 weeks with worsening dyspnea on exertion. The patient had a thoracentesis for a pleural effusion on 23 March and cytology was positive for metastatic adenocarcinoma suggestive of GI origin. Bone biopsy right iliac bone metastasis was positive for metastatic carcinoma and an EGD on 04/11/2022 positive for poorly differentiated adenocarcinoma. The patient got a port today to initiate chemotherapy. He had been stable until I got a call from nurse about 2 hours ago. Patient developed new onset tachycardia with heart rate of 124/min. Otherwise still sleeping comfortably, there was no change in his blood pressure, respirations are about 20 to 28/min with O2 sats about mid 90s on nasal cannula 3 L/min and he was afebrile. I had issues reviewing EMR because of login issues.. I was in touch with IT for over a period of 2 hours until I finally regain access around 2:40 AM SENIOR IT ENGINEER since there was no powerhouse electrician apprentice onsite. In the meantime I ordered EKG which showed sinus tachycardia. Chest x-ray showed element of pulmonary edema. I had checked in with the nurse in between and there had been no change from his early condition. Given the concern for pulmonary embolism I ordered a CTA chest. When I did finally gain access to the EMR I noticed that the patient had had a CTA chest yesterday which did not show PE. I did call back the patient's nurse Raf; at that time the patient had had a repeat CT done and preliminary report according to pharmaceutical development technician showed significant worsening of the CAT scan compared to yesterday with development of pulmonary edema. It seems that the bilateral pleural effusions were unchanged. Also patient's oxygenation began dropping with saturations into the 80s and he is currently on OxiMax 6 L/min. He still hemodynamically stable. Nursing staff had contacted onsite hospitalist who was going to evaluate the patient imminently. I spoke to the nurse and verified this and asked him to call me back for any further questions but at this time I would defer to onsite hospitalist. Concern is for spread of carcinoma including lymphangitic carcinomatosis, cardiogenic or noncardiogenic pulmonary edema, and and also possibly an infectious process. Given the nature of cancer however, and the spread and metastases, overall prognosis seems poor.] Subjective Date Seen: 05/07/22 Exam Const: Vital Signs, click to edit/add: Vital Signs - 24 hr 05/06/22 07:28 05/06/22 08:42 05/06/22 08:56 Temperature 97.6 F 97.5 F L Pulse Rate 64 98 90 Pulse Rate [Pulse Oximeter] Respiratory Rate 22 20 20 Blood Pressure 147/84 H 86/64 L 99/73 Blood Pressure [AR M LEFT] Blood Pressure [Ri ght Arm] Pulse Oximetry 94 97 94 Oxygen Delivery Me thod Nasal Cannula Nasal Cannula Nasal Cannula Oxygen Flow Rate 4 3 3 05/06/22 09:06 05/06/22 09:20 05/06/22 09:35 Temperature Pulse Rate 78 89 74 Pulse Rate [Pulse Oximeter] Respiratory Rate 18 20 20 Blood Pressure 126/79 126/79 137/81 Blood Pressure [AR M LEFT] Blood Pressure [Ri ght Arm] Pulse Oximetry 93 89 88 Oxygen Delivery Me thod Nasal Cannula Nasal Cannula Nasal Cannula Oxygen Flow Rate 3 3 3 05/06/22 09:54 05/06/22 10:43 05/06/22 10:15 Temperature 97.4 F L 97 F L Pulse Rate 68 72 72 Pulse Rate [Pulse Oximeter] Respiratory Rate 20 22 22 Blood Pressure 133/80 161/93 H Blood Pressure [AR M LEFT] Blood Pressure [Ri ght Arm] Pulse Oximetry 91 90 88 Oxygen Delivery Me thod Nasal Cannula Nasal Cannula Nasal Cannula Oxygen Flow Rate 3 3 3 05/06/22 11:30 05/06/22 11:55 05/06/22 12:18 Temperature Pulse Rate 77 80 74 Pulse Rate [Pulse Oximeter] Respiratory Rate 22 22 22 Blood Pressure Blood Pressure [AR M LEFT] Blood Pressure [Ri ght Arm] Pulse Oximetry 88 89 95 Oxygen Delivery Me thod Nasal Cannula Nasal Cannula Nasal Cannula Oxygen Flow Rate 3 3 4 05/06/22 12:29 05/06/22 13:00 05/06/22 13:15 Temperature Pulse Rate 76 68 70 Pulse Rate [Pulse Oximeter] Respiratory Rate 22 20 20 Blood Pressure 134/72 Blood Pressure [AR M LEFT] Blood Pressure [Ri ght Arm] Pulse Oximetry 88 88 87 L Oxygen Delivery Me thod Nasal Cannula Nasal Cannula Nasal Cannula Oxygen Flow Rate 2 2 2 05/06/22 14:28 05/06/22 14:50 05/06/22 14:22 Temperature 98.6 F Pulse Rate Pulse Rate [Pulse Oximeter] 69 Respiratory Rate 22 22 Blood Pressure Blood Pressure [AR M LEFT] Blood Pressure [Ri ght Arm] 120/74 Pulse Oximetry 92 91 91 Oxygen Delivery Me thod Nasal Cannula Nasal Cannula Oxygen Flow Rate 2.5 2.5 05/06/22 14:23 05/06/22 14:19 05/06/22 14:22 Temperature 98.1 F Pulse Rate 79 Pulse Rate [Pulse Oximeter] 89 Respiratory Rate 22 Blood Pressure Blood Pressure [AR M LEFT] Blood Pressure [Ri ght Arm] 173/95 H Pulse Oximetry 90 89 Oxygen Delivery Me thod Nasal Cannula Oxygen Flow Rate 3 05/06/22 17:56 05/06/22 19:26 05/06/22 19:29 Temperature 98.6 F 97.3 F L Pulse Rate Pulse Rate [Pulse Oximeter] 83 Respiratory Rate 16 Blood Pressure Blood Pressure [AR M LEFT] 158/90 H Blood Pressure [Ri ght Arm] Pulse Oximetry 90 93 Oxygen Delivery Me thod Nasal Cannula Nasal Cannula Oxygen Flow Rate 4 4 05/06/22 20:11 05/06/22 22:48 05/06/22 22:49 Temperature 97.3 F L 97.2 F L Pulse Rate 97 Pulse Rate [Pulse Oximeter] 118 H Respiratory Rate 16 Blood Pressure Blood Pressure [AR M LEFT] 128/77 Blood Pressure [Ri ght Arm] Pulse Oximetry 90 Oxygen Delivery Me thod OxyMask Oxygen Flow Rate 3 05/06/22 23:08 05/07/22 02:08 05/07/22 02:10 Temperature 97.7 F 97.7 F Pulse Rate Pulse Rate [Pulse Oximeter] 118 H 124 H 124 H Respiratory Rate 16 16 16 Blood Pressure Blood Pressure [AR M LEFT] 116/84 116/84 Blood Pressure [Ri ght Arm] Pulse Oximetry 88 92 Oxygen Delivery Me thod OxyMask OxyMask Oxygen Flow Rate 5 5 Labs Labs: Laboratory Results - last 24 hr 05/06/22 05/06/22 05/06/22 13:20 13:20 13:20 WBC 9.26 RBC 3.78 L Hgb 12.3 L Hct 37.9 MCV 100 MCH 33 MCHC 33 RDW Coeff of Sukhwinder 15.6 H Plt Count 202 Neut % (Auto) 75.8 H Lymph % (Auto) 10.2 L [place] % (Auto) 11.0 Eos % (Auto) 2.2 Baso % (Auto) 0.3 Neut # (Auto) 7.00 Lymph # (Auto) 0.90 [place] # (Auto) 1.00 H Eos # (Auto) 0.20 Baso # (Auto) 0.03 Abs Immat Gran (auto) 0.05 VBG pH 7.361 VBG pCO2 54 H VBG pO2 28.9 VBG HCO3 31 H Sodium 138 Potassium 4.1 Chloride 105 Carbon Dioxide 28 BUN 17 Creatinine 0.7 Estimated Creat Clear 47.78 Estimated GFR 94 Glucose 107 Calcium 8.2 L Troponin I < 0.01 L C-Reactive Protein < 0.5 L
--- NOTE | 2022-05-07 04:27 | PC.NURSE ---
Dr ordered [facility] [id number].
--- NOTE | 2022-05-07 04:29 | P.IMPN_ITS ---
Progress Note: A&P Assessment and plan (1) Acute respiratory failure with hypoxia: Status: Acute Assessment and Plan: - patient has worsening bilateral pleural effusions in the setting of known metastatic adenocarcinoma and underlying COPD - called family and asked them to come in; discussed case with patient's daughter and 2 sons. We discussed patient's current findings, prognosis. 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 [facility] physician had ordered an EKG and repeat CT scan of the chest. EKG exhibited sinus tachycardia, CT scan exhibited worsening pleural effusions bilaterally. Patient was somnolent throughout workup, not maintaining oxygen saturations while on OxyMask at 10 L/min supplemental oxygen. Exam Narrative: Exam Narrative: Patient is laying in bed, nonresponsive Cardiovascular exam exhibits sinus tachycardia He has tachypnea but does not appear uncomfortable Const: Vital Signs, click to edit/add: Vital Signs - 24 hr 05/06/22 07:28 05/06/22 08:42 05/06/22 08:56 Temperature 97.6 F 97.5 F L Pulse Rate 64 98 90 Pulse Rate [Pulse Oximeter] Respiratory Rate 22 20 20 Blood Pressure 147/84 H 86/64 L 99/73 Blood Pressure [AR M LEFT] Blood Pressure [Ri ght Arm] Pulse Oximetry 94 97 94 Oxygen Delivery Me thod Nasal Cannula Nasal Cannula Nasal Cannula Oxygen Flow Rate 4 3 3 05/06/22 09:06 05/06/22 09:20 05/06/22 09:35 Temperature Pulse Rate 78 89 74 Pulse Rate [Pulse Oximeter] Respiratory Rate 18 20 20 Blood Pressure 126/79 126/79 137/81 Blood Pressure [AR M LEFT] Blood Pressure [Ri ght Arm] Pulse Oximetry 93 89 88 Oxygen Delivery Me thod Nasal Cannula Nasal Cannula Nasal Cannula Oxygen Flow Rate 3 3 3 05/06/22 09:54 05/06/22 10:43 05/06/22 10:15 Temperature 97.4 F L 97 F L Pulse Rate 68 72 72 Pulse Rate [Pulse Oximeter] Respiratory Rate 20 22 22 Blood Pressure 133/80 161/93 H Blood Pressure [AR M LEFT] Blood Pressure [Ri ght Arm] Pulse Oximetry 91 90 88 Oxygen Delivery Me thod Nasal Cannula Nasal Cannula Nasal Cannula Oxygen Flow Rate 3 3 3 05/06/22 11:30 05/06/22 11:55 05/06/22 12:18 Temperature Pulse Rate 77 80 74 Pulse Rate [Pulse Oximeter] Respiratory Rate 22 22 22 Blood Pressure Blood Pressure [AR M LEFT] Blood Pressure [Ri ght Arm] Pulse Oximetry 88 89 95 Oxygen Delivery Me thod Nasal Cannula Nasal Cannula Nasal Cannula Oxygen Flow Rate 3 3 4 05/06/22 12:29 05/06/22 13:00 05/06/22 13:15 Temperature Pulse Rate 76 68 70 Pulse Rate [Pulse Oximeter] Respiratory Rate 22 20 20 Blood Pressure 134/72 Blood Pressure [AR M LEFT] Blood Pressure [Ri ght Arm] Pulse Oximetry 88 88 87 L Oxygen Delivery Me thod Nasal Cannula Nasal Cannula Nasal Cannula Oxygen Flow Rate 2 2 2 05/06/22 14:28 05/06/22 14:50 05/06/22 14:22 Temperature 98.6 F Pulse Rate Pulse Rate [Pulse Oximeter] 69 Respiratory Rate 22 22 Blood Pressure Blood Pressure [AR M LEFT] Blood Pressure [Ri ght Arm] 120/74 Pulse Oximetry 92 91 91 Oxygen Delivery Me thod Nasal Cannula Nasal Cannula Oxygen Flow Rate 2.5 2.5 05/06/22 14:23 05/06/22 14:19 05/06/22 14:22 Temperature 98.1 F Pulse Rate 79 Pulse Rate [Pulse Oximeter] 89 Respiratory Rate 22 Blood Pressure Blood Pressure [AR M LEFT] Blood Pressure [Ri ght Arm] 173/95 H Pulse Oximetry 90 89 Oxygen Delivery Me thod Nasal Cannula Oxygen Flow Rate 3 05/06/22 17:56 05/06/22 19:26 05/06/22 19:29 Temperature 98.6 F 97.3 F L Pulse Rate Pulse Rate [Pulse Oximeter] 83 Respiratory Rate 16 Blood Pressure Blood Pressure [AR M LEFT] 158/90 H Blood Pressure [Ri ght Arm] Pulse Oximetry 90 93 Oxygen Delivery Me thod Nasal Cannula Nasal Cannula Oxygen Flow Rate 4 4 05/06/22 20:11 05/06/22 22:48 05/06/22 22:49 Temperature 97.3 F L 97.2 F L Pulse Rate 97 Pulse Rate [Pulse Oximeter] 118 H Respiratory Rate 16 Blood Pressure Blood Pressure [AR M LEFT] 128/77 Blood Pressure [Ri ght Arm] Pulse Oximetry 90 Oxygen Delivery Me thod OxyMask Oxygen Flow Rate 3 05/06/22 23:08 05/07/22 02:08 05/07/22 02:10 Temperature 97.7 F 97.7 F Pulse Rate Pulse Rate [Pulse Oximeter] 118 H 124 H 124 H Respiratory Rate 16 16 16 Blood Pressure Blood Pressure [AR M LEFT] 116/84 116/84 Blood Pressure [Ri ght Arm] Pulse Oximetry 88 92 Oxygen Delivery Me thod OxyMask OxyMask Oxygen Flow Rate 5 5 Labs Labs: Laboratory Results - last 24 hr 05/06/22 05/06/22 05/06/22 13:20 13:20 13:20 WBC 9.26 RBC 3.78 L Hgb 12.3 L Hct 37.9 MCV 100 MCH 33 MCHC 33 RDW Coeff of Sukhwinder 15.6 H Plt Count 202 Neut % (Auto) 75.8 H Lymph % (Auto) 10.2 L [place] % (Auto) 11.0 Eos % (Auto) 2.2 Baso % (Auto) 0.3 Neut # (Auto) 7.00 Lymph # (Auto) 0.90 [place] # (Auto) 1.00 H Eos # (Auto) 0.20 Baso # (Auto) 0.03 Abs Immat Gran (auto) 0.05 VBG pH 7.361 VBG pCO2 54 H VBG pO2 28.9 VBG HCO3 31 H Sodium 138 Potassium 4.1 Chloride 105 Carbon Dioxide 28 BUN 17 Creatinine 0.7 Estimated Creat Clear 47.78 Estimated GFR 94 Glucose 107 Calcium 8.2 L Troponin I < 0.01 L C-Reactive Protein < 0.5 L
[2022-05-07] MEDS: MORPHINE 2 MG/ML inj IVP ×3 (04:51→10:15)
[2022-05-07 07:00] VITALS: RESP 16
[2022-05-07] MEDS: LORazepam 2 MG/ML inj 1 MG IVP ×2 (07:58→10:15)
--- NOTE | 2022-05-07 11:12 | PC.NURSE ---
Time of 1055, Dr. Carroll in room.
--- NOTE | 2022-05-07 11:43 | P.DN_ITS ---
Pronouncement Note Date and Time of Date of : 05/07/22 Time of : 10:58 PCOD Preliminary cause of : Metastatic adenocarcinoma Summary Additional details: Patient admitted to the hospital on 05/06 for acute hypoxic respiratory failure in the setting of known metastatic adenocarcinoma. His hypoxia progressed during stay, CT scan exhibited significant bilateral pleural effusions. He was placed on comfort care early this morning, was kept comfortable with morphine and Ativan and family was at bedside throughout the morning. Additional Data Confirmation of : no pulse, no respirations and no heart sounds Family: at bedside Attending physician: Snehal Carroll MD Time Seen by Provider: :58 Date Seen: 05/07/22 Was code activated?: No Autopsy requested?: No life claims examiner notified?: No Organ bank notified?: No Advance directives: No
--- NOTE | 2022-05-07 12:16 | PC.NURSE ---
[facility] called at 1107. [facility] in [place], [place] called at 1215 at ([phone]). Family in room at bedside.
--- NOTE | 2022-05-07 14:41 | PC.NURSE ---
[facility] here to product picker body at 1427
== END 2022-05-07 14:25 | disposition expired ==
LOC: MEDSURG 14:18
PROVIDERS: Surgery; Admitting Provider Family Medicine; PCP Physician Assistant Medical; Visit Provider Surgery
PROC: (CPT 36561; principal; 2022-05-06 07:30)
DX: C26.9 Malignant neoplasm of ill-defined sites within the digestive system (principal); J96.01 Acute respiratory failure with hypoxia; Z45.2 Encounter for adjustment and management of vascular access device; J91.8 Pleural effusion in other conditions classified elsewhere; R00.0 Tachycardia, unspecified; C79.51 Secondary malignant neoplasm of bone; J43.9 Emphysema, unspecified; I10 Essential (primary) hypertension; Z87.891 Personal history of nicotine dependence; N40.0 Benign prostatic hyperplasia without lower urinary tract symptoms; N13.30 Unspecified hydronephrosis
CPT/HCPCS: 36561; C1751; 00532; 36415; 71045; 71260; 76000; 80048; 82803; 84484; 85025; 86140; 93005; 94761; 99100; A9270; C1788; G0378; G0379; J0690; J1642; J2060; J2250; J2270; J2405; J2704; J3010; J3490; J7120; Q9967